=== PATIENT | male | born 1970 | race Two or more races ===

== ENCOUNTER 2018-04-08 07:04 | Day surgery (SDC) | payer OTHER ==
[2018-04-08] MEDS ORDERED: LACTATED RINGERS 1,000 ML IV ONE (07:34)
[2018-04-08] MEDS ORDERED: fentaNYL 250 MCG/5 ML VIAL IVP ONE (08:38)
[2018-04-08] MEDS ORDERED: MIDAZOLAM 2 MG/2 ML VIAL IVP ONE (08:38)
[2018-04-08 09:41] VITALS: BP 97/77
== END 2018-04-08 07:05 | disposition home or self-care (01) ==
LOC: SDS 07:04
PROVIDERS: ATTEND Surgery
PROC: 0DBN8ZZ Excision of Sigmoid Colon, Via Natural or Artificial Opening Endoscopic (ICD-10-PCS; 2018-04-08)
PROC: 0DBP8ZZ Excision of Rectum, Via Natural or Artificial Opening Endoscopic (ICD-10-PCS; principal; 2018-04-08 08:15)
DX: Z12.11 Encounter for screening for malignant neoplasm of colon (principal); D12.5 Benign neoplasm of sigmoid colon; D12.8 Benign neoplasm of rectum; K64.8 Other hemorrhoids; Z87.891 Personal history of nicotine dependence; Z80.0 Family history of malignant neoplasm of digestive organs; G47.30 Sleep apnea, unspecified
CPT/HCPCS: 45385; J7120

== ENCOUNTER 2018-10-28 09:30 | Emergency (ER) | payer OTHER ==
[2018-10-28] MEDS ORDERED: LIDOCAINE PATCH 5% TOP STA (10:15)
[2018-10-28] MEDS ORDERED: CYCLOBENZAPRINE 10 MG TABLET PO STA (10:18)
--- NOTE | 2018-10-28 10:18 | ED Physician Documentation ---
History of Present Illness - Stated complaint Stated Complaint: R SHOULDER PX - Chief complaint Chief Complaint: Ext Problem - Additonal information Additional information: hx from pt 48 male [place] aishwarya stevenson has had severe R shoulder pain since August pain with ABD uction has done a lot of heavy carrying lifting etc no specific recalled moment of injury seen by PMD at [facility] and xray was neg has been txed with mobic s relief has been referred top PT but n o opening yet pain is severe and he wants a MRI Review of Systems Musculoskeletal: reports: Joint pain PD PAST MEDICAL HISTORY - Past Medical History Cardiovascular: Hypertension, High cholesterol Respiratory: Sleep apnea, CPAP use, Other Endocrine/Autoimmune: None GI: GERD : Incontinence HEENT: Other Psych: Depression Musculoskeletal: Chronic back pain Derm: Eczema - Past Surgical History Past Surgical History: No - Present Medications Home Medications: Ambulatory Orders Medication Instructions Recorded Confirmed Cyclobenzaprine [Flexeril] 10 mg PO ONCE PRN 09/11/14 09/11/14 Lisinopril 20 mg PO DAILY 09/11/14 09/11/14 Meloxicam [Mobic] 0 mg PO DAILY 09/11/14 09/11/14 Sildenafil Citrate [Viagra] 0 mg PO ONCE 09/11/14 09/11/14 Simvastatin 20 mg PO DAILY 09/11/14 09/11/14 Tamsulosin [Flomax] 0.4 mg PO DAILY 09/11/14 09/11/14 Trazodone HCl 0 mg PO QPM PRN 09/11/14 09/11/14 Cyclobenzaprine [Flexeril] 10 mg PO TID PRN #20 tablet 10/28/18 Lidocaine Patch 5% [Lidoderm Patch] 1 patch TOP DAILY PRN #10 patch 10/28/18 - Allergies Allergies/Adverse Reactions: Allergies Allergy/AdvReac Type Severity Reaction Status Date / Time latex Allergy Intermediate Itching Verified 10/28/18 09:48 acetaminophen Allergy Itching Verified 10/28/18 09:48 [From Tylenol-Codeine #3] codeine Allergy Itching Verified 10/28/18 09:48 [From Tylenol-Codeine #3] hydromorphone HCl * Allergy Itching Verified 10/28/18 09:48 [From Dilaudid] oxycodone [Oxycodone] Allergy Unknown Verified 10/28/18 09:48 - Social History Does the pt smoke?: No Smoking Status: Never smoker Does the pt drink ETOH?: Yes Does the pt have substance abuse?: No - Immunizations Immunizations are current?: Yes PD ED PE NORMAL - Vitals Vital signs reviewed: Yes - General General: Alert and oriented X 3 - Cardiac Cardiac: RRR - Respiratory Respiratory: No respiratory distress, Clear bilaterally - Extremities Extremities: Other (R shoulder - 4 salonpas patches, TTP ovaer laterla shoulder , pain with any ROM but jennifer ABD past 90, not red or hit, MSV intact) Results - Vitals Vitals: Vital Signs - 24 hr 10/28/18 09:39 Temperature 35.8 C L Heart Rate 82 Respiratory 18 Rate Blood Pressure 135/95 H O2 Saturation 99 Oxygen O2 Source Room air PD MEDICAL DECISION MAKING - ED course ED course: most c/w roattor cuff injury likely would ebenefit from MRI but not needing to be done through the ER will add flexeril and liso patches refer to [facility] PMD order MRI and get pre-auth Departure - Departure Disposition: 01 Home, Self Care Clinical Impression: Rotator cuff arthropathy Qualifiers: Laterality: right Qualified Code(s): M12.811 - Other specific arthropathies, not elsewhere classified, right shoulder Condition: Good Instructions: ED Tendinitis Rotator Cuff Follow-Up: [facility] [Provider Group] Prescriptions: Cyclobenzaprine [Flexeril] 10 mg PO TID PRN #20 tablet PRN Reason: Spasms Lidocaine Patch 5% [Lidoderm Patch] 1 patch TOP DAILY PRN #10 patch PRN Reason: pain Comments: Continue the mobic and tylenol Add the muscle relaxant - may cause drowsiness And lidocaine patches for up to 12 hr a day Wear the sling as needed but be sure to do some range of motion every day to prevent shoulder "freezing" I do think a MRI would be a good idea - but needs to be ordered by your PMD or orthopedics and needs insurnace approval I have referred you to orthopedics
[2018-10-28] MEDS ORDERED: KETOROLAC 60 MG/2 ML VIAL IM STA (10:36)
[2018-10-28 11:09] VITALS: BP 130/88
== END 2018-10-28 11:06 | disposition home or self-care (01) ==
LOC: ED 09:30
DX: M12.811 Other specific arthropathies, not elsewhere classified, right shoulder (principal); I10 Essential (primary) hypertension; E78.00 Pure hypercholesterolemia, unspecified
CPT/HCPCS: 96372; 99283; A9270

== ENCOUNTER 2018-12-04 09:28 | Outpatient (CLI) | payer OTHER ==
[~2018-12-04 09:28] MED LIST: BUFFERED LIDOCAINE 10 ML SYRINGE ONE; GADOPENTETATE DIMEGLUMINE 5 ML VIAL IVP ONE; IOTHALAMATE MEGLUMINE 50 ML VIAL ONE
[2018-12-04] MEDS ORDERED: GADOPENTETATE DIMEGLUMINE 5 ML VIAL IVP ONE ×2 (10:25→15:01)
[2018-12-04] MEDS ORDERED: IOTHALAMATE MEGLUMINE 50 ML VIAL ONE (10:25)
[2018-12-04] MEDS ORDERED: BUFFERED LIDOCAINE 10 ML SYRINGE ONE (10:26)
--- NOTE | 2018-12-04 14:20 | XRAY Report ---
Reason: UNSPECIFIED ROTATOR CUFF TEAR OR RUPTURE SHOULDER Procedure Date: 12/04/2018 Accession Number: [id number] / [id number] Procedure: FL - Arthrogram Needle Placement CPT Code: FULL RESULT: EXAM: RIGHT SHOULDER ARTHROGRAPHIC INJECTION WITH FLUOROSCOPIC GUIDANCE EXAM DATE: 12/04/2018 11:03 AM. CLINICAL HISTORY: Persistent right shoulder pain COMPARISON: None. TECHNIQUE: The risks, benefits, and alternatives of the procedure were discussed with the patient. All questions were answered. Written and verbal consent were obtained. The right glenohumeral joint was marked under fluoroscopy and prepped and draped in a sterile manner. Local anesthesia was performed with 1% lidocaine. A 22-gauge needle was then inserted into the glenohumeral joint. 10 mL of a solution containing 25% 1% lidocaine, 25% iodinated contrast, and a 1:200 dilution of gadolinium contrast in sterile saline was then injected. The needle was removed without immediate complication. Other: None. Fluoroscopy Time: 58 seconds. Number of Images: 1. FINDINGS: Bones and joints: No fracture or subluxation. Injection: Fluoroscopic images demonstrate needle placement and contrast in the right glenohumeral joint. No contrast extravasation outside of the glenohumeral joint. IMPRESSION: Successful fluoroscopically guided arthrographic injection of the right shoulder. [facility]
[2018-12-04] MEDS ORDERED: IOTHALAMATE MEGLUMINE 50 ML VIAL IVP ONE (15:01)
[2018-12-04] MEDS ORDERED: BUFFERED LIDOCAINE 10 ML SYRINGE IU ONE (15:01)
--- NOTE | 2018-12-04 17:00 | MRI Report ---
Reason: UNSPECIFIED ROTATOR CUFF TEAR OR RUPTURE SHOULDER Procedure Date: 12/04/2018 Accession Number: [id number] / [id number] Procedure: MRI - Arthrogram Shoulder RT CPT Code: FULL RESULT: EXAM: RIGHT SHOULDER MRI ARTHROGRAM WITH CONTRAST EXAM DATE: 12/04/2018 11:39 AM. CLINICAL HISTORY: Right shoulder pain. COMPARISON: None. TECHNIQUE: Multiplanar, multisequence T1-weighted and fluid-sensitive sequences of the shoulder after an arthrographic injection of dilute gadolinium, dictated under a separate exam. Other: None. FINDINGS: Acromioclavicular Region: The acromion is type II. The acromioclavicular joint is unremarkable. The coracoacromial and coracoclavicular ligaments are intact. There is no contrast or fluid in the subacromial/subdeltoid bursa. Glenohumeral Region: No subluxation. No loose bodies. The articular cartilage is unremarkable. The glenohumeral ligaments and joint capsule are unremarkable. Bone Marrow: No fracture, marrow edema or bone lesions. Labrum: The labrum is unremarkable. Biceps Tendon: The long head of the biceps tendon and biceps reinaldo are intact. Musculature/Rotator Cuff: There is a focal, approximately 1.2 x 1.1 cm low to moderate grade partial-thickness articular surface tear at the anterior distal aspect of the supraspinatus tendon. The infraspinatus, teres minor, and subscapularis tendons are unremarkable. No edema or fatty atrophy. Other: The subcutaneous tissues are unremarkable. IMPRESSION: 1. Focal low to moderate grade partial-thickness articular surface tear of the anterior distal aspect of the supraspinatus tendon. [facility] MUSCULOSKELETAL RADIOLOGY SECTION
== END 2018-12-04 09:29 | disposition home or self-care (01) ==
LOC: DI 09:28
PROVIDERS: ATTEND Family Medicine
DX: M75.101 Unspecified rotator cuff tear or rupture of right shoulder, not specified as traumatic (principal)
CPT/HCPCS: 23350; 73222; 77002; Q9961

== ENCOUNTER 2019-05-20 08:59 | Outpatient (CLI) | payer OTHER | END 2019-05-20 09:00 | disposition critical access hospital (66) | LOC: EMS 08:59 | PROVIDERS: ATTEND Surgery | DX: R42 Dizziness and giddiness (principal); R07.9 Chest pain, unspecified | CPT/HCPCS: A0425; A0427 ==

== ENCOUNTER 2019-05-20 09:22 | Inpatient (IN) | payer OTHER ==
--- NOTE | 2019-05-20 09:39 | ED Physician Documentation ---
PD HPI CHEST PAIN - Stated complaint Stated Complaint: DIZZINESS/ CHEST BURNING - History obtained from History obtained from: Patient - History of Present Illness Timing - onset: How many hours ago (10/22), Today Timing - onset during: Light activity Timing - duration: Hours (Onset at 8 AM today. He had been feeling some dyspnea on exertion and general fatigue over the last several weeks to a month or so. He was late for work and went jogging slightly uphill and felt short of breath but then felt better when rested. He then went into the meeting and soon after that had an onset of chest pressure associated with nausea sweaty and lightheaded. He went to his office and sat down but still continued with the symptoms. EMS was called and en route they gave 2 nitroglycerin and aspirin. This helped fairly well but not completely. He does have some element of sharp chest pain with coughing. He has had a slight cough and some sore throat for about a week. However that is distinct and separate from the chest pressure he had had this morning.) Timing - details: Abrupt onset PD PAST MEDICAL HISTORY - Past Medical History Cardiovascular: Hypertension, High cholesterol Respiratory: Sleep apnea, CPAP use, Other Endocrine/Autoimmune: None GI: GERD : Incontinence HEENT: Other Psych: Depression Musculoskeletal: Chronic back pain Derm: Eczema - Past Surgical History Past Surgical History: No - Present Medications Home Medications: Ambulatory Orders Medication Instructions Recorded Confirmed Cyclobenzaprine [Flexeril] 10 mg PO ONCE PRN 09/11/14 09/11/14 Lisinopril 20 mg PO DAILY 09/11/14 09/11/14 Meloxicam [Mobic] 0 mg PO DAILY 09/11/14 09/11/14 Sildenafil Citrate [Viagra] 0 mg PO ONCE 09/11/14 09/11/14 Simvastatin 20 mg PO DAILY 09/11/14 09/11/14 Tamsulosin [Flomax] 0.4 mg PO DAILY 09/11/14 09/11/14 Trazodone HCl 0 mg PO QPM PRN 09/11/14 09/11/14 Cyclobenzaprine [Flexeril] 10 mg PO TID PRN #20 tablet 10/28/18 Lidocaine Patch 5% [Lidoderm Patch] 1 patch TOP DAILY PRN #10 patch 10/28/18 - Allergies Allergies/Adverse Reactions: Allergies Allergy/AdvReac Type Severity Reaction Status Date / Time latex Allergy Intermediate Itching Verified 05/20/19 09:41 acetaminophen Allergy Itching Verified 05/20/19 09:41 [From Tylenol-Codeine #3] codeine Allergy Itching Verified 05/20/19 09:41 [From Tylenol-Codeine #3] hydromorphone HCl * Allergy Itching Verified 05/20/19 09:41 [From Dilaudid] oxycodone [Oxycodone] Allergy Unknown Verified 05/20/19 09:41 - Social History Does the pt smoke?: No Smoking Status: Never smoker Does the pt drink ETOH?: Yes Does the pt have substance abuse?: No - Immunizations Immunizations are current?: Yes Results - Vitals Vitals: Vital Signs - 24 hr 05/20/19 05/20/19 05/20/19 09:24 10:07 10:34 Temperature 36.4 C L Heart Rate 68 62 67 Respiratory 16 20 14 Rate Blood Pressure 106/72 116/86 H 111/89 H O2 Saturation 96 98 99 Oxygen O2 Source Room air - Labs Labs: Laboratory Tests 05/20/19 05/20/19 05/20/19 10:20 10:20 10:20 WBC 10.7 RBC 4.19 L Hgb 14.1 Hct 41.6 L MCV 99.3 H MCH 33.7 H MCHC 33.9 RDW 11.9 L Plt Count 237 MPV 9.3 Neut # (Auto) 8.2 H Lymph # (Auto) 1.5 Piute # (Auto) 0.7 Eos # (Auto) 0.1 Baso # (Auto) 0.1 Absolute Nucleated RBC 0.00 Nucleated RBC % 0.0 Sodium 135 Potassium 3.7 Chloride 103 Carbon Dioxide 24 Anion Gap 8.0 BUN 14 Creatinine 0.9 Estimated GFR (MDRD) 89 Glucose 105 H Calcium 8.7 Magnesium 2.1 Total Bilirubin 0.6 AST 21 ALT 24 Alkaline Phosphatase 60 Troponin I < 0.04 Troponin I High Sens B-Natriuretic Peptide Total Protein 6.7 Albumin 3.6 Globulin 3.1 Albumin/Globulin Ratio 1.2 Lipase 30 TSH 05/20/19 05/20/19 05/20/19 10:20 10:20 10:20 WBC RBC Hgb Hct MCV MCH MCHC RDW Plt Count MPV Neut # (Auto) Lymph # (Auto) Piute # (Auto) Eos # (Auto) Baso # (Auto) Absolute Nucleated RBC Nucleated RBC % Sodium Potassium Chloride Carbon Dioxide Anion Gap BUN Creatinine Estimated GFR (MDRD) Glucose Calcium Magnesium Total Bilirubin AST ALT Alkaline Phosphatase Troponin I Troponin I High Sens 8.6 B-Natriuretic Peptide 12 Total Protein Albumin Globulin Albumin/Globulin Ratio Lipase TSH 1.43 Departure - Departure Disposition: ED Place in Observation Clinical Impression: Chest pain, rule out acute myocardial infarction Condition: Stable Record reviewed to determine appropriate education?: Yes
[2019-05-20] MEDS ORDERED: ONDANSETRON 4 MG/2 ML VIAL IVP STA (10:06)
[2019-05-20] MEDS ORDERED: MORPHINE 2 MG/ML CARPUJECT IVP STA (10:06)
[2019-05-20] MEDS ORDERED: SODIUM CHLORIDE 0.9% 1,000 ML IV ONE (10:07)
--- NOTE | 2019-05-20 10:31 | XRAY Report ---
Reason: chest pain Procedure Date: 05/20/2019 Accession Number: [id number] / [id number] Procedure: XR - Chest 1 View X-Ray CPT Code: 11396 FULL RESULT: EXAM: CHEST RADIOGRAPHY EXAM DATE: 05/20/2019 10:19 AM. CLINICAL HISTORY: Chest pain. COMPARISON: XR CHEST PA AND LAT 11/26/2012 5:13 AM. TECHNIQUE: 1 view. FINDINGS: Lungs/Pleura: No focal opacities evident. No pleural effusion. No pneumothorax. Mediastinum: Heart size is normal. Aorta is mildly tortuous. Other: None. IMPRESSION: 1. No acute disease in the chest. [facility]
[2019-05-20 10:35] LABS: BASOPHILS # (AUTO) 0.1 10^3/uL (0.0-0.1); BASOPHILS % (AUTO) 0.6 %; EOSINOPHILS # (AUTO) 0.1 10^3/uL (0.0-0.7); EOSINOPHILS % (AUTO) 1.3 %; HGB - HEMOGLOBIN 14.1 g/dL (14.0-18.0); LYMPHOCYTES # (AUTO) 1.5 10^3/uL (1.5-3.5); MEAN CORPUSCULAR HEMOGLOBIN 33.7 pg (27.0-31.0); MEAN CORPUSCULAR HGB CONC 33.9 g/dL (32.0-36.0); MEAN CORPUSCULAR VOLUME 99.3 fL (80.0-94.0); MEAN PLATELET VOLUME 9.3 fL (7.4-11.4); MONOCYTES # (AUTO) 0.7 10^3/uL (0.0-1.0); MONOCYTES % (AUTO) 6.7 %; NEUTROPHILS # (AUTO) 8.2 10^3/uL (1.5-6.6); PLT - PLATELET COUNT 237 10^3/uL (130-450); RED BLOOD COUNT 4.19 10^6/uL (4.70-6.10); RED CELL DISTRIBUTION WIDTH 11.9 % (12.0-15.0); WHITE BLOOD COUNT 10.7 x10^3/uL (4.8-10.8)
[2019-05-20 10:45] LABS: ALBUMIN 3.6 g/dL (3.2-5.5); ALBUMIN/GLOBULIN RATIO 1.2 (1.0-2.2); BILIRUBIN,TOTAL 0.6 mg/dL (0.2-1.0); CALCIUM 8.7 mg/dL (8.5-10.3); CREATININE 0.9 mg/dL (0.6-1.2); MAGNESIUM 2.1 mg/dL (1.7-2.8); TOTAL PROTEIN 6.7 g/dL (6.7-8.2)
[2019-05-20] MEDS ORDERED: ONDANSETRON 4 MG/2 ML VIAL IVP PRN (12:03)
[2019-05-20] MEDS ORDERED: MORPHINE 2 MG/ML CARPUJECT IVP PRN (12:03)
[2019-05-20] MEDS ORDERED: SODIUM CHLORIDE FLUSH 0.9% 10 ML SYRINGE IVP PRN (12:03)
[2019-05-20] MEDS ORDERED: NITROGLYCERIN SL 0.4 MG TABLET SL PRN (12:13)
--- NOTE | 2019-05-20 12:17 | HISTORY & PHYSICAL EXAMINATION ---
Chief Complaint - Chief Complaint Chief Complaint: chest pain History of Present Illness - History of Present Illness HPI Comment/Other: Mr. Borges is a 48-yrs-old male with a PMH significant for HTN, HLD, sleep Apnea, GERD, incontinence, Depression, chronic back pain, who present ER complain of chest pain. pt report his chest pain started after he passed the uphill to go to morning meeting. He report chest pain located anterior left chest. Pain is more like pressure on chest pain associated with shortness of breath, lightheaded, cold sweating, pale and also with feeling of passed out. He also report feeling of nausea but no vomiting. Because of these symptoms, he called EMS. He felt better after EMS gave him Aspirin and nitro SL. Pt also r eport he felt general weakness, cough with yellowish sputum for over one week. pt denies fever, chill, shortness of breath now. Pt also denies headache, abdominal pain, dysuria, hematouria, vision change. Initial troponin and EKG were unremarkable indicated acute ACS. Lab test in ER was unremarkable. CXR does not reveals acute finding. pt is a febrile, and hemodynamic stable now. pt is admitted in observation unit for chest pain R/O History - Past Medical History Cardiovascular: reports: Hypertension, High cholesterol Respiratory: reports: Sleep apnea, CPAP use, Other Endocrine/Autoimmune: reports: None GI: reports: GERD : reports: Incontinence HEENT: reports: Other Psych: reports: Depression Musculoskeletal: reports: Chronic back pain Derm: reports: Eczema MRSA Hx?: No - Family & Social History Family History Comment/Other: pt report he is living [place] with his and three children. After he has been working 20 yrs in , now he retired. Social History Notes: pt report he smoked cigarette on his teenage, then he stoped. About ten years ago, he started smoking again now he stop tobacco smoking. He denies alcohol and drug issue. Meds/Allgy - Home Medications Home Medications: Ambulatory Orders Medication Instructions Recorded Confirmed Cyclobenzaprine [Flexeril] 10 mg PO ONCE PRN 09/11/14 09/11/14 Lisinopril 20 mg PO DAILY 09/11/14 09/11/14 Meloxicam [Mobic] 0 mg PO DAILY 09/11/14 09/11/14 Sildenafil Citrate [Viagra] 0 mg PO ONCE 09/11/14 09/11/14 Simvastatin 20 mg PO DAILY 09/11/14 09/11/14 Tamsulosin [Flomax] 0.4 mg PO DAILY 09/11/14 09/11/14 Trazodone HCl 0 mg PO QPM PRN 09/11/14 09/11/14 Cyclobenzaprine [Flexeril] 10 mg PO TID PRN #20 tablet 10/28/18 Lidocaine Patch 5% [Lidoderm Patch] 1 patch TOP DAILY PRN #10 patch 10/28/18 - Allergies Allergies/Adverse Reactions: Allergies Allergy/AdvReac Type Severity Reaction Status Date / Time latex Allergy Intermediate Itching Verified 05/20/19 09:41 acetaminophen Allergy Itching Verified 05/20/19 09:41 [From Tylenol-Codeine #3] codeine Allergy Itching Verified 05/20/19 09:41 [From Tylenol-Codeine #3] hydromorphone HCl * Allergy Itching Verified 05/20/19 09:41 [From Dilaudid] oxycodone [Oxycodone] Allergy Unknown Verified 05/20/19 09:41 Review of Systems - Constitutional Constitutional: denies: Fatigue, Fever, Chills, Malaise, Weakness, Poor appetite, Diaphoresis, Night sweats - Eyes Eyes: denies: Pain, Irritation, Amaurosis, Blurred vision, Spots in vision, Field loss, Vision loss, Dipolpia - Ears, Nose & Throat Ears, Nose & Throat: denies: Ear pain, Hearing loss, Hearing aids, Tinnitus, Vertigo, Nasal pain, Nasal discharge, Nosebleeds, Nasal obstruction, Nasal congestion, Postnasal drainage, Dentures, Sore throat, Hoarseness, Mouth lesions, Bleeding gums - Cardiovascular Cariovascular: reports: Chest pain, Lightheadedness, Exertional dyspnea. denies: Irregular heart rate, Palpitations, Edema, Syncope, Decr. exercise tolerance, Orthopnea - Respiratory Respiratory: reports: Cough, Sputum production. denies: Wheezing, Snoring, He moptysis, Orthopnea, SOB at rest, SOB with exertion, Apnea, Stridor, Pleuritic pain - Gastrointestinal Gastrointestinal: denies: Abdominal pain, Abdominal distention, Constipation, Diarrhea, Change in bowel habits, Rectal bleeding, Black stools, Bloody stools, Nausea, Vomiting, Bile emesis, David blood emesis, Coffee grounds emesis, Reflux/heartburn - Genitourinary Genitourinary: denies: Dysuria, Frequency, Urgency, Hematuria, Incontinence, Flank pain, Nocturia, Urethral discharge - Musculoskeletal Musculoskeletal: denies: Muscle pain, Back pain, Muscle aches, Stiffness, Limit ed range of motion, Muscle weakness, Gout, Joint pain - Integumentary Integumentary: denies: Rash, Pruritis, Lesions, Dryness, Lumps, Acne, Pigment changes, Nail changes - Neurological Neurological: denies: General weakness, Focal weakness, Headache, Dizziness, Numbness, Memory problems, Pre-existing deficit, Abnormal gait, Seizures, Incoordination, Slurred speech - Psychiatric Psychiatric: denies: Depression, Anxiety, Suicidal, Delusions, Hallucinations, Homicidal - Endocrine Endocrine: denies: Polyuria, Polydypsia, Polyphagia, Intolerance to cold - Hematologic/Lymphatic Hematologic/Lymphatic: denies: Anemia, Bruising, Petechiae, Blood clots, Lymphadenopathy, Bleeding tendencies Prior Level of Functionality: pt is independent Exam - Vital Signs Reviewed Vital Signs: Yes Vital Signs: Vital Signs x48h Temp Pulse Resp BP Pulse Ox 05/20/19 11:55 65 17 108/81 H 98 05/20/19 10:34 67 14 111/89 H 99 05/20/19 10:07 62 20 116/86 H 98 05/20/19 09:24 36.4 C L 68 16 106/72 96 - Physical Exam General Appearance: positive: No acute distress, Alert. negative: Lethargic Eyes Bilateral: positive: Normal inspection, PERRL. negative: No lid inflammation, Conjunctivae nml ENT: positive: ENT inspection nml, Pharynx nml, No signs of dehydration. negative: Purulent nasal drainage, Pharyngeal erythema, Oral lesions Neck: positive: Nml inspection, Thyroid nml, No JVD, Trachea midline. negative: Thyromegaly, Lymphadenopathy (R), Lymphadenopathy (L), Stiff neck, Swelling/bruising, Tracheal deviation Respiratory: positive: Chest non-tender, No respiratory distress, Breath sounds nml. negative: Wheezes, Rales, Rhonchi Cardiovascular: positive: Regular rate & rhythm, No murmur, No gallop. negative: Irregularly irregular, Extrasystoles, Tachycardia, Bradycardia, JVD present, Systolic murmur, Diastolic murmur Peripheral Pulses: positive: 2+ Abdomen: positive: Non-tender, No organomegaly, Nml bowel sounds, No distention. negative: Tenderness, Guarding, Rebound Back: positive: Nml inspection. negative: CVA tenderness (R), CVA tenderness (L) Skin: positive: Color nml, No rash, Warm, Dry. negative: Cyanosis, Diaphoresis, Pallor Extremities: positive: Non-tender, Full ROM, Nml appearance. negative: Calf tenderness, Joint swelling, Mayra's sign/cords Neurologic/Psychiatric: positive: Oriented x3, Motor nml, Sensation nml, Mood/affect nml. negative: Weakness, Sensory loss, Facial droop, Slurred/abnml speech, Depressed mood/affect Sepsis Event Note (H) - Evaluation Current Stage of Sepsis: Ruled out Conclusion/Plan - Problem List (1) Chest pain, rule out acute myocardial infarction Conclusion/Plan: pt present typical chest pain symptoms: anterior chest pain and pressure, associated with cold sweating, SOB, lightheaded, nausea, and Nitro and Aspirin released his symptoms. But pt's initial Troponin and EKG were unremarkable as far. Serial Troponin, EKG PRN pt already had Aspirin today and Nitro. order Aspirin for tomorrow Morphine and Nitro PRN for chest pain reconcile pt's home Statin, check Lipid panel order Stress test on tomorrow. order Tele and vital monitor pt (2) HTN (hypertension) Conclusion/Plan: pt's BP is at lower size now, hold pt's BP meds now. vital monitor (3) HLD (hyperlipidemia) Conclusion/Plan: reconcile pt's home lipitor and check Lipid panel (4) Sleep apnea Conclusion/Plan: stable, pt may use his home CPAP (5) GERD (gastroesophageal reflux disease) Conclusion/Plan: stable, order Protonic PO (6) Chronic back pain Conclusion/Plan: stable, pain control (7) Full code status Conclusion/Plan: pt request full code - Lab Results Fish Bones: 05/20/19 10:20 05/20/19 10:20 Core Measures - Anticipated LOS I expect patient to be DC'd or transferred within 96 hours.: Yes - DVT/VTE - Prophylaxis VTE/DVT Device ordered at admit?: Yes VTE/DVT Prophylaxis med ordered at admit?: Yes
[2019-05-20] MEDS: PANTOPRAZOLE 40 MG TABLET PO SCH (14:37)
[2019-05-20 16:21] LABS: TROPONIN I < 0.04 ng/mL (<0.49)
[2019-05-20] MEDS: SODIUM CHLORIDE FLUSH 0.9% 10 ML SYRINGE IVP SCH (16:58)
[2019-05-20] MEDS ORDERED: ZOLPIDEM 5 MG TABLET PO PRN (21:00)
[2019-05-20] MEDS ORDERED: ATORVASTATIN 10 MG TABLET PO SCH (21:00)
[2019-05-20 22:17] LABS: TROPONIN I < 0.04 ng/mL (<0.49)
[2019-05-21] MEDS: SODIUM CHLORIDE FLUSH 0.9% 10 ML SYRINGE IVP SCH ×3 (00:01→16:51)
[2019-05-21] MEDS ORDERED: BENZOCAINE/MENTHOL LOZENGE MM PRN (00:17)
[2019-05-21] MEDS: guaiFENesin 100 MG/5 ML UDC PO PRN ×2 (05:06→16:50)
[2019-05-21 06:00] LABS: CALCIUM 8.8 mg/dL (8.5-10.3)
[2019-05-21 06:02] LABS: BASOPHILS # (AUTO) 0.1 10^3/uL (0.0-0.1); BASOPHILS % (AUTO) 0.8 %; EOSINOPHILS # (AUTO) 0.2 10^3/uL (0.0-0.7); EOSINOPHILS % (AUTO) 2.6 %; HGB - HEMOGLOBIN 14.4 g/dL (14.0-18.0); LYMPHOCYTES # (AUTO) 2.2 10^3/uL (1.5-3.5); LYMPHOCYTES % (AUTO) 29.7 %; MEAN CORPUSCULAR HEMOGLOBIN 33.8 pg (27.0-31.0); MEAN CORPUSCULAR HGB CONC 33.7 g/dL (32.0-36.0); MEAN CORPUSCULAR VOLUME 100.2 fL (80.0-94.0); MEAN PLATELET VOLUME 9.3 fL (7.4-11.4); MONOCYTES # (AUTO) 0.5 10^3/uL (0.0-1.0); MONOCYTES % (AUTO) 7.2 %; NEUTROPHILS # (AUTO) 4.4 10^3/uL (1.5-6.6); NEUTROPHILS % (AUTO) 59.3 %; PLT - PLATELET COUNT 251 10^3/uL (130-450); RED BLOOD COUNT 4.26 10^6/uL (4.70-6.10); WHITE BLOOD COUNT 7.5 x10^3/uL (4.8-10.8)
[2019-05-21 06:20] LABS: CHOL/HDL RATIO 4.4 (<5.0); CHOLESTEROL 210 mg/dL; HDL CHOLESTEROL 48 mg/dL; LDL CHOLESTEROL,CALCULATED 134 mg/dL; LDL/HDL RATIO 2.8 (<3.6); VLDL CHOLESTEROL 28 mg/dL
[2019-05-21] MEDS: PANTOPRAZOLE 40 MG TABLET PO SCH (06:21)
[2019-05-21] MEDS ORDERED: POLYETHYLENE GLYCOL 3350 17 GM PACKET PO SCH (09:00)
[2019-05-21] MEDS ORDERED: TAMSULOSIN 0.4 MG CAPSULE PO SCH (09:00)
[2019-05-21] MEDS ORDERED: ASPIRIN CHEW 81 MG TABLET PO SCH (09:00)
[2019-05-21] MEDS ORDERED: ENOXAPARIN 40 MG/0.4 ML SYRINGE SUBQ SCH (09:00)
--- NOTE | 2019-05-21 12:06 | CARDIAC PROCEDURE NOTE ---
DATE OF SERVICE: 05/21/2019 Physician: Janny Monge MD PCP: Tierra Benton INDICATION: Chest pain. CARDIAC RISK FACTORS: Hypertension, hyperlipidemia, male gender, unknown family history. PROCEDURE: After signing informed consent, patient underwent a Shlomo-protocol treadmill stress test with nuclear myocardial perfusion imaging. RESTING HEART RATE: 73. PEAK HEART RATE: 156 (91% predicted maximum heart rate for age). RESTING BLOOD PRESSURE: 98/60 (he got his morning Lisinopril). PEAK BLOOD PRESSURE: 128/62. Patient exercised for 6 minutes and 44 seconds on a Shlomo-protocol treadmill stress test. Normal heart rate and blood pressure response to exercise. Patient reached a peak heart rate of 156 (91% PMHR) and 8.2 METS. Oxygen saturation at peak was 98% on room air. Patient developed his typical chest pressure (which was worse with a deep inspiration) in stage 2. He rated this at 5-6/10 at maximum. He had mild shortness of breath. He had no dizziness or other symptoms. The chest pain resolved spontaneously after 6 minutes of recovery. RESTING EKG: Normal sinus rhythm, flat T-wave in lead III only. EKG AT PEAK: New T-wave inversion in lead III, upsloping ST depressions in leads II, aVF, and V3 through V6 and new T-wave flattening in leads V5 and V6. SUMMARY 1. Essentially normal resting EKG. 2. His typical symptoms were reproduced with treadmill exercise. 3. Abnormal EKG with exertion, and those changes ARE suggestive of ischemia. 4. Nuclear images reported separately. TD: 05/21/2019 11:51 MTDD
--- NOTE | 2019-05-21 12:56 | Nuclear Medicine Report ---
Reason: chest pain Procedure Date: 05/21/2019 Accession Number: [id number] / [id number] Procedure: NM - Myocardial Perfusion Single CPT Code: FULL RESULT: EXAM: SINGLE-ISOTOPE EXERCISE STRESS TEST. SINGLE-ISOTOPE AND ONE-DAY REST/STRESS MYOCARDIAL PERFUSION SCANS WITH TOMOGRAPHIC IMAGING, QUANTITATIVE ANALYSIS, WALL MOTION ANALYSIS AND CALCULATION OF EJECTION FRACTION. EXAM DATE: 05/21/2019 12:31 PM. CLINICAL HISTORY: Chest pain. COMPARISON: None. TECHNIQUE: A rest myocardial perfusion scan was done with tomography after the intravenous administration of 10.3 mCi Tc-99m sestamibi. After an appropriate delay, a treadmill exercise stress was performed according to department protocol. The patient exercised for 6 minutes and 44 seconds. The maximum heart rate was 156 bpm, which was 92% of the maximum predicted heart rate of 170 bpm. At approximately peak heart rate, 39.7 mCi of Tc-99m sestamibi was injected for stress myocardial perfusion scan. Motion correction was applied when appropriate. Gated tomographic images were obtained for wall motion analysis and computation of left ventricular ejection fraction. FINDINGS: On visual analysis, there is a mildly reversible defect in the distal anterior wall and anterior apex. Computer analysis. Summed stress score 4 Summed rest score 3 Summed difference score 1 Wall motion analysis demonstrates no focal wall motion abnormality. The left ventricular end-diastolic volume is 47 cc. The left ventricular end-systolic volume is 5 cc. The left ventricular ejection fraction is calculated to be 88%. IMPRESSION: 1. On visual analysis, mild reversible defect in the distal anterior wall and anterior apex. 2. Normal left ventricular ejection fraction of >65%. 3. Normal segmental and global wall motion. 4. Normal left ventricular cavity size, no change with stress. 5. Based on computer analysis, mildly abnormal study with no ischemia. Please correlate findings with stress ECG tracings and procedure notes. [facility]
--- NOTE | 2019-05-21 13:32 | Discharge Plan ---
Discharge Plan Problem Reviewed?: Yes Disposition: Home, Self Care Condition: Stable Diet: Regular Activity Restrictions: Activity as Tolerated Shower Restrictions: No Driving Restrictions: No Weight Bearing: Full Weight Health Concerns: Chest pain No Smoking: If you smoke, Please STOP! Call for help. Follow-up with: Tierra Benton MD [Primary Care Provider] -
[2019-05-21] MEDS ORDERED: amLODIPine 5 MG TABLET PO SCH (14:36)
--- NOTE | 2019-05-21 16:10 | Discharge Plan ---
Discharge Plan Problem Reviewed?: Yes Disposition: 02 Transfer Acute Care Hosp Health Concerns: Chest pain No Smoking: If you smoke, Please STOP! Call for help. Follow-up with: Tierra Benton MD [Primary Care Provider] -
[2019-05-21 19:23] VITALS: BP 106/68
[2019-05-21] MEDS ORDERED: ATORVASTATIN 40 MG TABLET PO SCH (21:00)
--- NOTE | 2019-05-27 13:20 | DISCHARGE SUMMARY ---
"Discharge Summary Admit Date: 05/20/19 Discharge Date: 05/21/19 Discharging Provider: Dr Janny Monge Primary Care Provider: Tierra Benton Code Status: Attempt Resuscitation Condition at Discharge: Stable Discharge Disposition: 02 Transfer Acute Care Hosp Discharge Facility Name: [facility] - DIAGNOSES Admission Diagnoses: 1) Chest pain 2) Dizziness 3) Cough and dyspnea Discharge Diagnoses with Status of Each Condition: 1) Unstable angina 2) Dizziness 3) Hypotension 4) Elevated cholesterol 5) Hx HTN 6) Hx BRANDON See below - HPI History of Present Illness: As per admission the OR report and H&P of Rayshawn Mckay NP: Mr. Borges is a 48-yr-old male with a PMH significant for HTN, HLD, sleep Apnea, GERD, incontinence, Depression, chronic back pain, who presented to ER by ambulance with complaint of new onset of chest pain. His chest pain started after he ran uphill (because he was late for a morning meeting at work). It was associated with shortness of breath, lightheadedness, cold sweating, nausea and feeling of nearly passing out. He layed down in his office, supine on the floor. Because of these symptoms, he called EMS and felt better after EMS gave him Aspirin and nitro SL. Pt also reported he has had a cough for over one week, but denies fever, chills. He had been feeling some dyspnea on exertion and general fatigue over the last several weeks to a month or so. Initial troponin and EKG were stable, and he was placed in Observation status on telemetry for further evaluation. - CONSULTS | PROCEDURES Procedures: Treadmill stress testing with Nuclear Myocardial Perfusion Imaging. - HOSPITAL COURSE Hospital Course: 1) Unstable angina He had no chest pain at rest and his troponins were unremarkable, therefore he underwent stress testing the following day. He had an episode of his typical chest pressure, without associated dizziness or nausea, as he exercised for the stress test. The EKG portion showed minimal ST depressions and T new wave abnormality interiorly and laterally, and the Nuclear imaging was reported as showing reversible ischemia mitch-apically, suggesting obstructive coronary artery disease. He was put on statin, aspirin and kept on his B-irena. He was accepted in transfer for further cardiac evaluation such as angiography, by Cardiology at [facility] in [place] and he was transferred to the Hospitalist violet there in stable condition by ambulance. 2) Dizziness There were no further episodes of lightheadedness at rest, but his medications needed adjustment, see #3. 3) Hypotension He was hypotensive during this hospital stay, as low as 92/67 and 98/48, therefore Lisinopril was put on hold. He was kept on his Metoprolol Succ 25 mg daily. 4) Elevated cholesterol His fasting serum lipid panel was done and showed poor control, despite being on Simvistatin 20 mg at home. His total cholesterol: 210, LDL: 134, HDL: 48, Triglycerides: 141. When I discussed this result with the patient, the reported, and the patient admitted, that he almost never took his Simvastatin med. The importance of compliance was discussed. 5) Hx HTN He had been on Lisinopril, and Metoprolol at home. The Lisinopril was stopped, due to low BP and being suspected as the cause of the dry cough. 6) Hx BRANDON His home CPA device was ordered to be used while he was here. - ALLERGIES Allergies/Adverse Reactions: Allergies Allergy/AdvReac Type Severity Reaction Status Date / Time latex Allergy Intermediate Itching Verified 05/26/19 09:44 acetaminophen Allergy Itching Verified 05/26/19 09:44 [From Tylenol-Codeine #3] codeine Allergy Itching Verified 05/26/19 09:44 [From Tylenol-Codeine #3] hydromorphone HCl * Allergy Itching Verified 05/26/19 09:44 [From Dilaudid] oxycodone [Oxycodone] Allergy Unknown Verified 05/26/19 09:44 - MEDICATIONS Home Medications: Ambulatory Orders Medication Instructions Recorded Confirmed Meloxicam [Mobic] 15 mg PO DAILY PRN 09/11/14 05/26/19 Sildenafil Citrate [Viagra] 100 mg PO DAILY PRN 09/11/14 05/26/19 Tamsulosin [Flomax] 0.4 mg PO QPM 09/11/14 05/26/19 Trazodone HCl 50 mg PO QPM PRN 09/11/14 05/26/19 Acetaminophen 650 mg PO BID PRN 05/20/19 05/26/19 Cholecalciferol (Vitamin D3) 2,000 units PO DAILY 05/20/19 05/26/19 [Vitamin D3] Cyclobenzaprine [Flexeril] 10 mg PO Q8H PRN 05/20/19 05/26/19 Glucos Sul 2Kcl/MSM/Chond/C/Mn 1 tab PO DAILY 05/20/19 05/26/19 [Glucosamine Chondroitin Cap] Aspirin [Aspirin EC] 81 mg PO DAILY 05/26/19 05/26/19 Atorvastatin Calcium 80 mg PO QPM 05/26/19 05/26/19 Metoprolol Succinate 25 mg PO DAILY 05/26/19 05/26/19 Ticagrelor [Brilinta] 90 mg PO BID 05/26/19 05/26/19 - PHYSICAL EXAM AT DISCHARGE General Appearance: positive: No acute distress Eyes Bilateral: positive: Normal inspection ENT: positive: ENT inspection nml Neck: positive: No JVD Respiratory: positive: No respiratory distress, Breath sounds nml Cardiovascular: positive: Regular rate & rhythm, No murmur Abdomen: positive: Non-tender Extremities: positive: No pedal edema Neurologic/Psychiatric: positive: Oriented x3 - LABS Result Diagrams: 05/21/19 05:28 05/21/19 05:28 - DIAGNOSTIC IMAGING Diagnostic Imaging Results: Final report reviewed - SEPSIS Current Stage of Sepsis: Ruled out - FOLLOW UP Follow Up: This will be determined after his hospitalization at [facility]. - TIME SPENT Time Spent in Discharge (Minutes): 60"
== END 2019-05-21 19:30 | disposition short-term general hospital (02) | DRG 303 ==
LOC: EDUNIT# → ED 09:22 → MS2 12:03 → INTOOBSV 12:03 → UNDOADMOB 12:03 → OBSVTOIN 05-21 14:32 → INTOOBSV 05-21 14:32 → UNDODISIN 05-21 19:30
PROVIDERS: ADMIT Nurse Practitioner Gerontology; ATTEND Internal Medicine
DX: I25.110 Atherosclerotic heart disease of native coronary artery with unstable angina pectoris (principal); R42 Dizziness and giddiness; R05 Cough; I95.2 Hypotension due to drugs; T46.4X5A Adverse effect of angiotensin-converting-enzyme inhibitors, initial encounter; E78.5 Hyperlipidemia, unspecified; T46.6X6A Underdosing of antihyperlipidemic and antiarteriosclerotic drugs, initial encounter; Z91.128 Patient's intentional underdosing of medication regimen for other reason; Y92.009 Unspecified place in unspecified non-institutional (private) residence as the place of occurrence of the external cause; I10 Essential (primary) hypertension; G47.33 Obstructive sleep apnea (adult) (pediatric); F32.9 Major depressive disorder, single episode, unspecified; K21.9 Gastro-esophageal reflux disease without esophagitis; M54.9 Dorsalgia, unspecified; G89.29 Other chronic pain; Z79.899 Other long term (current) drug therapy; Z87.891 Personal history of nicotine dependence
CPT/HCPCS: 36415; 71045; 78453; 80048; 80053; 80061; 83690; 83735; 83880; 84443; 84484; 85025; 93005; 93017; 93306; 96361; 96372; 96374; 96375; 99285; A9270; A9500; G0378; J1650; 83721; 99284

== ENCOUNTER 2019-05-21 | Outpatient (CLI) | payer OTHER | END 2019-05-21 19:36 | disposition short-term general hospital (02) | DX: I20.0 Unstable angina (principal) | CPT/HCPCS: A0425; A0426 ==

== ENCOUNTER 2019-05-26 09:32 | Observation (INO) | payer OTHER ==
[2019-05-26] MEDS ORDERED: NITROGLYCERIN SL 0.4 MG TABLET SL STA (09:49)
[2019-05-26] MEDS ORDERED: ASPIRIN CHEW 81 MG TABLET PO STA (09:52)
--- NOTE | 2019-05-26 09:55 | ED Physician Documentation ---
PD HPI CHEST PAIN - Stated complaint Stated Complaint: CHEST DISCOMFORT - Chief complaint Chief Complaint: Cardiac - Additional information Additional information: This is a 48-year-old male with a history of hypertension, hypercholesterolemia, CAD status post PCI x3 on Saturday at [facility] in [place]., Who presents with chest discomfort. Patient initially presented on Saturday with chest discomfort, he was admitted to this hospital and had a stress test that was positive so he was sent to [facility] in [place] for catheterization, which was performed with Dr. Horowitz. There were 3 stents placed he is unsure exactly which vessels they were placed in. He was started on ticagrelor and baby aspirin, has been taking these medications as prescribed. He was feeling well until around 3 AM this morning when he developed burning epigastric pain radiating up his chest. He drank some milk and the sensation subsided somewhat but then it was replaced to the feeling of chest pressure as if someone was sitting on his chest. It was moderate in severity and it is been waning since he arrived in the hospital. He denies shortness of breath but states that his breathing does not "feel entirely normal". He denies any history of blood clots. No cough, fever. Review of Systems Constitutional: denies: Fever Eyes: denies: Loss of vision Nose: denies: Rhinorrhea / runny nose Cardiac: reports: Chest pain / pressure Respiratory: denies: Cough, Hemoptysis GI: denies: Vomiting Skin: denies: Rash Musculoskeletal: denies: Neck pain Neurologic: denies: Syncope Immunocompromised: denies: Immunocompromised PD PAST MEDICAL HISTORY - Past Medical History Past Medical History: Yes Cardiovascular: Hypertension, High cholesterol Respiratory: Sleep apnea, CPAP use, Other Endocrine/Autoimmune: None GI: GERD : Incontinence HEENT: Other Psych: Depression Musculoskeletal: Chronic back pain Derm: Eczema - Past Surgical History Past Surgical History: No Cardiovascular: Coronary stent - Present Medications Home Medications: Ambulatory Orders Medication Instructions Recorded Confirmed RX: Meloxicam [Mobic] 15 mg PO DAILY PRN 09/11/14 05/26/19 RX: Sildenafil Citrate [Viagra] 100 mg PO DAILY PRN 09/11/14 05/26/19 RX: Tamsulosin [Flomax] 0.4 mg PO QPM 09/11/14 05/26/19 RX: Trazodone HCl 50 mg PO QPM PRN 09/11/14 05/26/19 RX: Acetaminophen 650 mg PO BID PRN 05/20/19 05/26/19 RX: Cholecalciferol (Vitamin D3) 2,000 units PO DAILY 05/20/19 05/26/19 [Vitamin D3] RX: Cyclobenzaprine [Flexeril] 10 mg PO Q8H PRN 05/20/19 05/26/19 RX: Glucos Sul 2Kcl/MSM/Chond/C/Mn 1 tab PO DAILY 05/20/19 05/26/19 [Glucosamine Chondroitin Cap] RX: Aspirin [Aspirin EC] 81 mg PO DAILY 05/26/19 05/26/19 RX: Atorvastatin Calcium 80 mg PO QPM 05/26/19 05/26/19 RX: Metoprolol Succinate 25 mg PO DAILY 05/26/19 05/26/19 RX: Ticagrelor [Brilinta] 90 mg PO BID 05/26/19 05/26/19 - Allergies Allergies/Adverse Reactions: Allergies Allergy/AdvReac Type Severity Reaction Status Date / Time latex Allergy Intermediate Itching Verified 05/26/19 09:44 acetaminophen Allergy Itching Verified 05/26/19 09:44 [From Tylenol-Codeine #3] codeine Allergy Itching Verified 05/26/19 09:44 [From Tylenol-Codeine #3] hydromorphone HCl * Allergy Itching Verified 05/26/19 09:44 [From Dilaudid] oxycodone [Oxycodone] Allergy Unknown Verified 05/26/19 09:44 - Social History Does the pt smoke?: No Smoking Status: Never smoker Does the pt drink ETOH?: Yes Does the pt have substance abuse?: No - Immunizations Immunizations are current?: Yes PD ED PE NORMAL - Vitals Vital signs reviewed: Yes - General General: Alert and oriented X 3, No acute distress - HEENT HEENT: PERRL - Neck Neck: Supple, no meningeal sign - Cardiac Cardiac: RRR, No murmur - Respiratory Respiratory: Clear bilaterally - Abdomen Abdomen: Soft, Non tender, Non distended - Derm Derm: Warm and dry - Extremities Extremities: No deformity - Neuro Neuro: Alert and oriented X 3 - Psych Psych: Normal mood, Normal affect Results - Vitals Vitals: Oxygen O2 Source Room air - EKG (time done) 9:33 Other comments: Other comments - Labs Labs: Laboratory Tests 05/26/19 05/26/19 05/26/19 09:43 09:43 09:43 WBC 8.4 RBC 4.57 L Hgb 15.2 Hct 44.7 MCV 97.8 H MCH 33.3 H MCHC 34.0 RDW 11.9 L Plt Count 282 MPV 9.5 Neut # (Auto) 5.9 Lymph # (Auto) 1.7 Mcpherson # (Auto) 0.5 Eos # (Auto) 0.1 Baso # (Auto) 0.1 Absolute Nucleated RBC 0.00 Nucleated RBC % 0.0 Sodium 141 Potassium 4.1 Chloride 103 Carbon Dioxide 25 Anion Gap 13.0 BUN 15 Creatinine 1.0 Estimated GFR (MDRD) 79 L Glucose 126 H Calcium 9.5 Total Bilirubin 0.6 AST 42 ALT 63 H Alkaline Phosphatase 66 CK-MB (CK-2) Troponin I 0.28 Troponin I High Sens 264.4 H* Total Protein 7.9 Albumin 4.2 Globulin 3.7 Albumin/Globulin Ratio 1.1 Lipase 105 H 05/26/19 12:20 WBC RBC Hgb Hct MCV MCH MCHC RDW Plt Count MPV Neut # (Auto) Lymph # (Auto) Mcpherson # (Auto) Eos # (Auto) Baso # (Auto) Absolute Nucleated RBC Nucleated RBC % Sodium Potassium Chloride Carbon Dioxide Anion Gap BUN Creatinine Estimated GFR (MDRD) Glucose Calcium Total Bilirubin AST ALT Alkaline Phosphatase CK-MB (CK-2) 0.9 Troponin I 0.29 Troponin I High Sens 252.4 H* Total Protein Albumin Globulin Albumin/Globulin Ratio Lipase - Rads (name of study) CXR Radiology: Prelim report reviewed (No acute cardiopulmonary abnormality) PD MEDICAL DECISION MAKING - ED course Complexity details: considered differential (ACS, GERD, pneumonia, pleural effusion, peptic ulcer disease, dysrhythmia,pneumothorax) ED course: Pt presents with chest pressure after recent cardiac cath. His EKG shows slight T wave inversion in aVL, otherwise unremarkable. I do not have a prior post-cath EKG for comparison. He initially was hypertensive, 1 SL nitroglycerin given with improvement of his BP and symptoms. Initial troponin is 0.28, consistent with post-catheterization status. I spoke with Dr. Horowitz who performed the patient's catheterization and reviewed the case with him. He states that the troponin elevation is within the realm of what he would expect after catheterization, recommend adding a CK-MB as well. He thought it was unlikely that patient was having a stent occlusion or other acute coronary syndrome, given the mildness of his symptoms the lack of significant EKG changes in the level of the troponin. Recommended patient be admitted to observation for serial troponins, or transferred if his troponins uptrend. Repeat troponin in the ED was 0.29, essentially unchanged and within the laboratory error. high-sensitivity troponin is down-trending. Pt remains asymptomatic. CXR unremarkable. I discussed our results and observation admission with patient, who is in agreement. He was admitted to the hospitalist service, please refer to their notes for further course. Departure - Departure Disposition: ED Place in Observation Clinical Impression: Chest pain Qualifiers: Chest pain type: other chest pain Qualified Code(s): R07.89 - Other chest pain Condition: Good Discharge Date/Time: 05/26/19 14:45
[2019-05-26 09:58] LABS: BASOPHILS # (AUTO) 0.1 10^3/uL (0.0-0.1); BASOPHILS % (AUTO) 0.6 %; EOSINOPHILS # (AUTO) 0.1 10^3/uL (0.0-0.7); EOSINOPHILS % (AUTO) 1.1 %; HGB - HEMOGLOBIN 15.2 g/dL (14.0-18.0); LYMPHOCYTES # (AUTO) 1.7 10^3/uL (1.5-3.5); LYMPHOCYTES % (AUTO) 20.8 %; MEAN CORPUSCULAR HEMOGLOBIN 33.3 pg (27.0-31.0); MEAN CORPUSCULAR VOLUME 97.8 fL (80.0-94.0); MEAN PLATELET VOLUME 9.5 fL (7.4-11.4); MONOCYTES # (AUTO) 0.5 10^3/uL (0.0-1.0); MONOCYTES % (AUTO) 5.7 %; NEUTROPHILS # (AUTO) 5.9 10^3/uL (1.5-6.6); NEUTROPHILS % (AUTO) 71.2 %; PLT - PLATELET COUNT 282 10^3/uL (130-450); RED BLOOD COUNT 4.57 10^6/uL (4.70-6.10); RED CELL DISTRIBUTION WIDTH 11.9 % (12.0-15.0); WHITE BLOOD COUNT 8.4 x10^3/uL (4.8-10.8)
[2019-05-26 10:08] LABS: ALBUMIN 4.2 g/dL (3.2-5.5); ALBUMIN/GLOBULIN RATIO 1.1 (1.0-2.2); BILIRUBIN,TOTAL 0.6 mg/dL (0.2-1.0); CALCIUM 9.5 mg/dL (8.5-10.3); TOTAL PROTEIN 7.9 g/dL (6.7-8.2)
[2019-05-26 10:13] LABS: TROPONIN I 0.28 ng/mL (<0.49)
--- NOTE | 2019-05-26 10:20 | XRAY Report ---
Reason: chest pain Procedure Date: 05/26/2019 Accession Number: [id number] / [id number] Procedure: XR - Chest 2 View X-Ray CPT Code: 52321 FULL RESULT: EXAM: CHEST RADIOGRAPHY EXAM DATE: 05/26/2019 10:09 AM. CLINICAL HISTORY: Chest pain. COMPARISON: CHEST 1 VIEW 05/20/2019 10:05 AM. TECHNIQUE: 2 views. FINDINGS: Lungs/Pleura: No focal opacities evident. No pleural effusion. No pneumothorax. Normal volumes. Mediastinum: Heart and mediastinal contours are unremarkable. Other: None. IMPRESSION: Normal 2-view chest radiography. RADIA
[2019-05-26 12:53] LABS: TROPONIN I 0.29 ng/mL (<0.49)
[2019-05-26 12:55] LABS: CREATINE KINASE MB 0.9 ng/mL (0.6-6.3)
[2019-05-26] MEDS ORDERED: ACETAMINOPHEN 325 MG TABLET PO PRN (13:34)
[2019-05-26] MEDS ORDERED: SODIUM CHLORIDE FLUSH 0.9% 10 ML SYRINGE IVP PRN (13:34)
[2019-05-26] MEDS ORDERED: ONDANSETRON ODT 4 MG TABLET TL PRN (14:55)
[2019-05-26] MEDS: PANTOPRAZOLE 40 MG VIAL IVP SCH (15:13)
--- NOTE | 2019-05-26 16:02 | HISTORY & PHYSICAL EXAMINATION ---
Chief Complaint - Chief Complaint Chief Complaint: chst pain History of Present Illness - Admitted From Admitted From:: Home/emergency room - History Obtained From Records Reviewed: [facility] History obtained from: Patient and ER MD Exam Limitations: none - History of Present Illness HPI Comment/Other: [place] male who has risk factors for heart disease including hypertension, male sex, hyperlipidemia and was just here last Saturday with chest discomfort. Serial cardiac enzymes were negative. However a follow-up stress test was positive. As such he was transferred to [facility], at [facility], in [place] and he was seen by Cardiology there where he underwent 3 stents. That was on May 22. He was started on baby aspirin and ticagrelor Dinner was that his usual time around 6 PM yesterday evening. He then awoke at 3 AM. He had a substernal burning sensation associated with belching. He thought it was indigestion so he took some milk and he got better. While the burning went away, the feeling that something was pressing on his chest was not going away. He called his cardiolog ist who said that he should probably come on into the emergency room to be evaluated. By the time he got here he has not had any more chest pressure. The chest pressure was nonradiating. There is no palpitations. There was no nausea, diaphoresis. There is no jaw pain, arm pain, or left forearm pain. In the emergency room he is mildly hypertensive at 132/101. But his labs were normal with a CBC and a CMP. EKG showed no acute changes. His initial troponin was 0.28. High-sensitivity troponin was 264.4. A repeat troponin approximately 3 hours later was 0.29 with high intense sensitivity troponin II 152. The emergency room physician spoke to his night guard. The night guard feels that the patient does not need to be transferred. The patient is placed here for further troponin testing. If troponins are elevated the night guard should be called back. The patient himself would like to go home. He says that he has been pain-free since being in the emergency room. He is eating lunch, and there is been no recurrence of chest pain. History - Past Medical History Cardiovascular: reports: Hypertension, High cholesterol Respiratory: reports: Sleep apnea, CPAP use, Other Endocrine/Autoimmune: reports: None GI: reports: GERD : reports: Incontinence HEENT: reports: Other Psych: reports: Depression Musculoskeletal: reports: Chronic back pain Derm: reports: Eczema MRSA Hx?: No - Past Surgical History Cardiovascular: reports: Coronary stent - Family & Social History Family History Comment/Other: Parents w HTN, DM. sibligns with HTN, CAD. children healthy Living arrangement: At home Living Situation: With spouse/s.o., With family Social History Notes: He smoked as a teenager then stopped after 2 years. About ten years ago, he started smoking again but stopped again recently. He denies alcohol and drug issue. Retired from the [employer]. From [employer]. - Substance History Use: Uses substance without health or social issues: NONE Abuse: Recurrent use of substance despite neg consequences: NONE Dependence: Experiences withdrawal or developed tolerances: NONE - POLST Patient has POLST: No POLST Status: Full Code Meds/Allgy - Home Medications Home Medications: Ambulatory Orders Medication Instructions Recorded Confirmed Lisinopril 20 mg PO DAILY 09/11/14 05/20/19 Meloxicam [Mobic] 15 mg PO DAILY 09/11/14 05/20/19 Sildenafil Citrate [Viagra] 100 mg PO DAILY PRN 09/11/14 05/20/19 Simvastatin 40 mg PO DAILY 09/11/14 05/20/19 Tamsulosin [Flomax] 0.4 mg PO DAILY 09/11/14 05/20/19 Trazodone HCl 50 mg PO QPM PRN 09/11/14 05/20/19 Acetaminophen 650 mg PO BID PRN 05/20/19 05/20/19 Cholecalciferol (Vitamin D3) 2,000 units PO DAILY 05/20/19 05/20/19 [Vitamin D3] Cyclobenzaprine [Flexeril] 10 mg PO Q8H PRN 05/20/19 05/20/19 Glucos Sul 2Kcl/MSM/Chond/C/Mn 1 tab PO DAILY 05/20/19 05/20/19 [Glucosamine Chondroitin Cap] - Allergies Allergies/Adverse Reactions: Allergies Allergy/AdvReac Type Severity Reaction Status Date / Time latex Allergy Intermediate Itching Verified 05/26/19 09:44 acetaminophen Allergy Itching Verified 05/26/19 09:44 [From Tylenol-Codeine #3] codeine Allergy Itching Verified 05/26/19 09:44 [From Tylenol-Codeine #3] hydromorphone HCl * Allergy Itching Verified 05/26/19 09:44 [From Dilaudid] oxycodone [Oxycodone] Allergy Unknown Verified 05/26/19 09:44 Review of Systems - Constitutional Constitutional: denies: Fatigue, Fever, Chills, Malaise, Weakness, Poor appetite - Eyes Eyes: denies: Pain, Irritation, Amaurosis, Vision loss, Dipolpia - Ears, Nose & Throat Ears, Nose & Throat: denies: Hearing loss, Vertigo, Postnasal drainage, Sore throat - Cardiovascular Cariovascular: denies: Irregular heart rate, Palpitations, Edema, Lightheadedness, Syncope, Exertional dyspnea, Decr. exercise tolerance - Respiratory Respiratory: denies: Cough, SOB at rest, SOB with exertion, Apnea - Gastrointestinal Gastrointestinal: denies: Abdominal pain, Abdominal distention, Constipation, Diarrhea, Change in bowel habits, Rectal bleeding, David blood emesis - Genitourinary Genitourinary: denies: Dysuria, Frequency, Urgency, Flank pain - Musculoskeletal Musculoskeletal: denies: Muscle pain, Muscle aches, Joint pain - Integumentary Integumentary: denies: Rash, Pruritis - Neurological Neurological: denies: General weakness, Headache, Memory problems, Pre-existing deficit - Psychiatric Psychiatric: denies: Depression, Anxiety, Suicidal - Endocrine Endocrine: denies: Polyuria, Polydypsia, Polyphagia Prior Level of Functionality: Home/emergency room independent middle-aged male who still drives a car, works full-time, pays his bills, and is very active on his day-to-day existence. Exam - Vital Signs Reviewed Vital Signs: Yes Vital Signs: Vital Signs x48h Temp Pulse Pulse Pulse Resp BP BP 05/26/19 15:53 37.0 C 83 24 103/73 05/26/19 14:54 36.7 C 63 14 114/82 H 05/26/19 14:17 70 14 113/94 H 05/26/19 11:39 62 20 119/82 H 05/26/19 10:33 76 17 111/81 H 05/26/19 09:45 37.1 C 88 19 132/101 H 05/26/19 09:40 37.1 C 82 18 132/101 H Pulse Ox 05/26/19 15:53 100 05/26/19 14:54 100 05/26/19 14:17 98 05/26/19 11:39 100 05/26/19 10:33 97 05/26/19 09:45 98 05/26/19 09:40 98 - Physical Exam General Appearance: positive: No acute distress, Alert, Other ( Middle-aged [place] male who is sitting comfortably in bed, watching TV, eating his axilla and enjoying it quite a bit.) Eyes Bilateral: positive: PERRL, EOMI ENT: positive: Pharynx nml Neck: positive: No JVD. negative: Stiff neck, Carotid bruit Respiratory: positive: Chest non-tender. negative: Wheezes, Rales, Rhonchi Cardiovascular: positive: Regular rate & rhythm. negative: No murmur, Systolic murmur, Diastolic murmur, Gallop/S4 Peripheral Pulses: positive: 1+ Abdomen: positive: Non-tender, No organomegaly, Nml bowel sounds, No distention Skin: positive: Warm, Dry Extremities: positive: Non-tender. negative: No pedal edema, Pedal edema Neurologic/Psychiatric: positive: Oriented x3, CN's nml (2-12), Motor nml. negative: Weakness, Facial droop Conclusion/Plan - Problem List (1) Chest pain Conclusion/Plan: Placed in observation. Serial cardiac enzymes. Consider discharge at 12 to 16 hours if cardiac enzymes remain all stable. Follow-up with night guard as soon as possible. In view of his recent cardiac stents, this is the timeframe that his stents would close down No change in his medications of beta-irena, aspirin, and Brilinta Qualifiers: Chest pain type: other chest pain Qualified Code(s): R07.89 - Other chest pain; R07.8 - Other chest pain (2) HTN (hypertension) Conclusion/Plan: No change in his medications of beta-irena, aspirin, and Brilinta in the e mergency room his blood pressure was 132/101. Since being transferred to [facility] his blood pressure has been 119/82, 113/94. No change in his medication. He is currently on lisinopril. Qualifiers: Hypertension type: essential hypertension Qualified Code(s): I10 - Essential (primary) hypertension - Lab Results Lab results reviewed: Yes Fish Bones: 05/26/19 09:43 05/26/19 09:43 - EKG Results EKG Interpreted Independently: No EKG Comparison: Other (EKG has not been scanned from the emergency room and as it is not available for me to review. Per emergency room physician, There are no acute ischemic changes..) Core Measures - Anticipated LOS I expect patient to be DC'd or transferred within 96 hours.: Yes - DVT/VTE - Prophylaxis VTE/DVT Device ordered at admit?: Yes
[2019-05-26 18:21] LABS: TROPONIN I 0.3 ng/mL (<0.49)
[2019-05-26] MEDS: SODIUM CHLORIDE FLUSH 0.9% 10 ML SYRINGE IVP SCH (21:39)
[2019-05-26] MEDS ORDERED: CLOPIDOGREL 75 MG TABLET PO SCH (22:57)
[2019-05-26] MEDS: ATORVASTATIN 40 MG TABLET PO SCH ×2 (23:17→23:18)
[2019-05-27 00:22] LABS: TROPONIN I 0.33 ng/mL (<0.49)
[2019-05-27] MEDS: SODIUM CHLORIDE FLUSH 0.9% 10 ML SYRINGE IVP SCH ×2 (01:45→06:46)
[2019-05-27] MEDS: PANTOPRAZOLE 40 MG VIAL IVP SCH (06:46)
[2019-05-27 07:27] VITALS: BP 91/61
--- NOTE | 2019-05-27 08:39 | Discharge Plan ---
Discharge Plan Problem Reviewed?: Yes Disposition: Home, Self Care Condition: Good Diet: Cardiac Activity Restrictions: No Restrictions Shower Restrictions: No Driving Restrictions: No Health Concerns: You just had 3 stents put in your heart arteries on 05/29 and came to our ER with chest pain that started at 3 am. So far your blood tests for heart muscle damage are NOT negative but they are not high enough for us to say you are having a heart attack. I have not spoken to your specific Meter Engineer, Matheus Horowitz MD, but I did speak to his weapons specialist team, Dr. Booker. They know you were here. Plan of Treatment: To continue your aspirin, cholesterol drug, and the blood thinner, Brillinta. Care Goals: 1. Please make sure you take your medicines regularly so as not to close off the new stents. 2. See your compression molding machine tender, Dr. Horowitz, in the next few days. Assessment: Patient understands goals and agrees to follow thru.. No Smoking: If you smoke, Please STOP! Call for help. Follow-up with: Tierra Benton MD [Primary Care Provider] -
[2019-05-27] MEDS ORDERED: TAMSULOSIN 0.4 MG CAPSULE PO SCH (09:00)
[2019-05-27] MEDS ORDERED: POLYETHYLENE GLYCOL 3350 17 GM PACKET PO SCH (09:00)
--- NOTE | 2019-05-29 10:26 | DISCHARGE SUMMARY ---
"Discharge Summary Admit Date: 05/26/19 Discharge Date: 05/27/19 Discharging Provider: Rhianna Guzman MD Primary Care Provider: Jonny CURRIE Code Status: Attempt Resuscitation Condition at Discharge: Good Discharge Disposition: 01 Home, Self Care - DIAGNOSES Discharge Diagnoses with Status of Each Condition: 1. Chest pain, resolved 2. CAD, s/p 3 PCI stents 05/22/19 3. Abnormal troponins 4. HTN - HPI History of Present Illness: [place] male who has risk factors for heart disease including hypertension, male sex, hyperlipidemia and was just here last Saturday with chest discomfort. Serial cardiac enzymes were negative. However a follow-up stress test was positive. As such he was transferred to [facility], at [facility], in [place] and he was seen by Cardiology there where he underwent 3 stents. That was on May 22. He was started on baby aspirin and ticagrelor Dinner was that his usual time around 6 PM yesterday evening. He then awoke at 3 AM. He had a substernal b urning sensation associated with belching. He thought it was indigestion so he took some milk and he got better. While the burning went away, the feeling that something was pressing on his chest was not going away. He called his general manager who said that he should probably come on into the emergency room to be evaluated. By the time he got here he has not had any more chest pressure. The chest pressure was nonradiating. There is no palpitations. There was no nausea, diaphoresis. There is no jaw pain, arm pain, or left forearm pain. In the emergency room he is mildly hypertensive at 132/101. But his labs were normal with a CBC and a CMP. EKG showed no acute changes. His initial troponin was 0.28. High-sensitivity troponin was 264.4. A repeat troponin approximately 3 hours later was 0.29 with high intense sensitivity troponin II 152. The emergency room physician spoke to his general manager. The general manager feels that the patient does not need to be transferred. The patient is placed here for further troponin testing. If troponins are elevated the general manager should be called back. The patient himself would like to go home. He says that he has been pain-free since being in the emergency room. He is eating lunch, and there is been no recurrence of chest pain. History - Past Medical History Cardiovascular: reports: Hypertension, High cholesterol Respiratory: reports: Sleep apnea, CPAP use, Other Endocrine/Autoimmune: reports: None GI: reports: GERD : reports: Incontinence HEENT: reports: Other Psych: reports: Depression Musculoskeletal: reports: Chronic back pain Derm: reports: Eczema MRSA Hx?: No - CONSULTS | PROCEDURES Procedures: Laboratory Tests 05/26/19 05/26/19 05/26/19 09:43 12:20 17:58 Troponin I 0.28 0.29 0.30 Troponin I High Sens 264.4 H* 252.4 H* 276.7 H* 05/26/19 05/27/19 23:55 05:30 Troponin I 0.33 Troponin I High Sens 289.5 H* 207.9 H* - HOSPITAL COURSE Hospital Course: The chest pain that woke him up at 3 in the morning was resolved by the time he got to the emergency room. EKGs were noncontributory and that they had no acute ischemic changes. His general manager was Dr. Horowitz. But he was not vector control specialist for his group, [facility] cardiology out of [facility]. I spoke to Dr. Santoyo who was on-call. We discussed the abnormal troponins which were felt to be not clinically significant. The patient had no chest pain. He was to be continued on his aspirin and Brilinta. Dr. Santoyo asked the patient see them in follow-up in the near future. As such the patient was discharged in stable condition with no change in medications. Temperature was 36.6, pulse was 67, blood pressure 91/61, respirations 16 and 98% on room air. Throughout his stay blood pressure was low. He was 103 systolic, down to 91 systolic. The highest he was was the blood pressure on admission at 114/82. He was a short statured, 5 foot, 4 inch, 68.9 kg [place] male. Well-groomed, well-nourished. Neck was supple without goiter or bruits. Lungs were clear to auscultation and percussion without any increased respiratory effort. PMI was normally placed with a regular rate and rhythm. Skin was warm, dry. He was comfortable on several exams done during hospital where he was seated watching TV, eating dinner, or walking in his room without any increased respiratory effort or chest pain. Extremities had no edema. He denied dizziness, headache, chest pain. He is asked to follow-up with his primary care provider, [facility]. And also see Dr. Horowitz in follow-up. If he has any further chest pain, to come to our Emergency Room, but anticipate transfer to [facility]. - ALLERGIES Allergies/Adverse Reactions: Allergies Allergy/AdvReac Type Severity Reaction Status Date / Time latex Allergy Intermediate Itching Verified 05/26/19 09:44 acetaminophen Allergy Itching Verified 05/26/19 09:44 [From Tylenol-Codeine #3] codeine Allergy Itching Verified 05/26/19 09:44 [From Tylenol-Codeine #3] hydromorphone HCl * Allergy Itching Verified 05/26/19 09:44 [From Dilaudid] oxycodone [Oxycodone] Allergy Unknown Verified 05/26/19 09:44 - MEDICATIONS Home Medications: Ambulatory Orders Medication Instructions Recorded Confirmed Meloxicam [Mobic] 15 mg PO DAILY PRN 09/11/14 05/26/19 Sildenafil Citrate [Viagra] 100 mg PO DAILY PRN 09/11/14 05/26/19 Tamsulosin [Flomax] 0.4 mg PO QPM 09/11/14 05/26/19 Trazodone HCl 50 mg PO QPM PRN 09/11/14 05/26/19 Acetaminophen 650 mg PO BID PRN 05/20/19 05/26/19 Cholecalciferol (Vitamin D3) 2,000 units PO DAILY 05/20/19 05/26/19 [Vitamin D3] Cyclobenzaprine [Flexeril] 10 mg PO Q8H PRN 05/20/19 05/26/19 Glucos Sul 2Kcl/MSM/Chond/C/Mn 1 tab PO DAILY 05/20/19 05/26/19 [Glucosamine Chondroitin Cap] Aspirin [Aspirin EC] 81 mg PO DAILY 05/26/19 05/26/19 Atorvastatin Calcium 80 mg PO QPM 05/26/19 05/26/19 Metoprolol Succinate 25 mg PO DAILY 05/26/19 05/26/19 Ticagrelor [Brilinta] 90 mg PO BID 05/26/19 05/26/19 - LABS Result Diagrams: 05/26/19 09:43 05/26/19 09:43"
== END 2019-05-27 09:09 | disposition home or self-care (01) ==
LOC: ED 09:32 → MS2 13:34
PROVIDERS: ADMIT Specialist; ATTEND Specialist
DX: R07.89 Other chest pain (principal); R79.89 Other specified abnormal findings of blood chemistry; I10 Essential (primary) hypertension; E78.5 Hyperlipidemia, unspecified; I25.10 Atherosclerotic heart disease of native coronary artery without angina pectoris; Z95.5 Presence of coronary angioplasty implant and graft; G47.30 Sleep apnea, unspecified; K21.9 Gastro-esophageal reflux disease without esophagitis; Z79.899 Other long term (current) drug therapy; Z79.82 Long term (current) use of aspirin; Z87.891 Personal history of nicotine dependence; Z82.49 Family history of ischemic heart disease and other diseases of the circulatory system; Z79.02 Long term (current) use of antithrombotics/antiplatelets
CPT/HCPCS: 36415; 71046; 80053; 82553; 83690; 84484; 85025; 93005; 96374; 96376; 99285; A9270; G0378; Q0162

== ENCOUNTER 2019-12-15 08:55 | Emergency (ER) | payer OTHER ==
--- NOTE | 2019-12-15 09:09 | ED Physician Documentation ---
PD HPI ABD PAIN - Stated complaint Stated Complaint: ABD PX - Chief complaint Chief Complaint: Abd Pain - History obtained from History obtained from: Patient - History of Present Illness Timing - onset: Yesterday Timing - duration: Days (10/22) Timing - details: Abrupt onset, Still present Quality: Cramping, Aching, Pain Location: RUQ, Epigastric Radiation: Right flank. No: Chest, Lower back Improved by: Laying still. No: Eating Worsened by: Moving. No: Eating, Breathing, Palpation Associated symptoms: Other (mild cough and body aches). No: Fever, Nausea, Vomiting, Diarrhea, Dysuria Similar symptoms before: Has not had sx before Recently seen: Not recently seen Review of Systems Constitutional: reports: Myalgias. denies: Fever, Chills Nose: denies: Rhinorrhea / runny nose, Congestion Throat: denies: Sore throat Respiratory: reports: Cough GI: reports: Abdominal Pain, Nausea. denies: Vomiting, Diarrhea : denies: Dysuria, Frequency Skin: denies: Rash Musculoskeletal: denies: Neck pain, Back pain Neurologic: reports: Generalized weakness. denies: Focal weakness, Numbness, Near syncope PD PAST MEDICAL HISTORY - Past Medical History Past Medical History: Yes Cardiovascular: Hypertension, High cholesterol Respiratory: Sleep apnea, CPAP use, Other Neuro: None Endocrine/Autoimmune: None GI: GERD : Incontinence HEENT: Other Psych: Depression Musculoskeletal: Chronic back pain Derm: Eczema - Past Surgical History Past Surgical History: Yes Cardiovascular: Coronary stent - Present Medications Home Medications: Ambulatory Orders Medication Instructions Recorded Confirmed Meloxicam [Mobic] 15 mg PO DAILY PRN 09/11/14 05/26/19 Sildenafil Citrate [Viagra] 100 mg PO DAILY PRN 09/11/14 05/26/19 Tamsulosin [Flomax] 0.4 mg PO QPM 09/11/14 05/26/19 Trazodone HCl 50 mg PO QPM PRN 09/11/14 05/26/19 Acetaminophen 650 mg PO BID PRN 05/20/19 05/26/19 Cholecalciferol (Vitamin D3) 2,000 units PO DAILY 05/20/19 05/26/19 [Vitamin D3] Cyclobenzaprine [Flexeril] 10 mg PO Q8H PRN 05/20/19 05/26/19 Glucos Sul 2Kcl/MSM/Chond/C/Mn 1 tab PO DAILY 05/20/19 05/26/19 [Glucosamine Chondroitin Cap] Aspirin [Aspirin EC] 81 mg PO DAILY 05/26/19 05/26/19 Atorvastatin Calcium 80 mg PO QPM 05/26/19 05/26/19 Metoprolol Succinate 25 mg PO DAILY 05/26/19 05/26/19 Ticagrelor [Brilinta] 90 mg PO BID 05/26/19 05/26/19 Docusate Sodium 100 mg PO DAILY #15 capsule 12/15/19 Tramadol HCl 50 mg PO Q6H PRN #15 tablet 12/15/19 - Allergies Allergies/Adverse Reactions: Allergies Allergy/AdvReac Type Severity Reaction Status Date / Time latex Allergy Intermediate Itching Verified 12/15/19 08:57 acetaminophen Allergy Itching Verified 12/15/19 08:57 [From Tylenol-Codeine #3] codeine Allergy Itching Verified 12/15/19 08:57 [From Tylenol-Codeine #3] hydromorphone HCl * Allergy Itching Verified 12/15/19 08:57 [From Dilaudid] oxycodone [Oxycodone] Allergy Unknown Verified 12/15/19 08:57 - Social History Does the pt smoke?: No Smoking Status: Former smoker Does the pt drink ETOH?: Yes Does the pt have substance abuse?: No - Immunizations Immunizations are current?: Yes - POLST Patient has POLST: No POLST Status: Full Code PD ED PE NORMAL - Vitals Vital signs reviewed: Yes - General General: Alert and oriented X 3, No acute distress, Well developed/nourished - HEENT HEENT: Moist mucous membranes, Pharynx benign - Neck Neck: Supple, no meningeal sign, No adenopathy - Cardiac Cardiac: RRR, No murmur - Respiratory Respiratory: Clear bilaterally - Abdomen Abdomen: Normal bowel sounds, Soft, Non distended, No organomegaly, Other (tender RUQ and epigastric area without guarding nor percussion tenderness. ) - Male Male : Deferred - Rectal Rectal: Deferred - Back Back: No CVA TTP - Derm Derm: Normal color, Warm and dry - Extremities Extremities: No deformity, No tenderness to palpate, Normal ROM s pain, No edema, No calf tenderness / cord - Neuro Neuro: Alert and oriented X 3, No motor deficit, Normal speech Results - Vitals Vitals: Vital Signs - 24 hr 12/15/19 12/15/19 12/15/19 08:58 09:00 11:00 Temperature 36.5 C 36.9 C 36.8 C Heart Rate 81 63 63 Respiratory 14 17 16 Rate Blood Pressure 156/91 H 151/101 H 144/90 H O2 Saturation 100 199 H 99 12/15/19 12/15/19 13:00 13:33 Temperature 37.3 C 37.3 C Heart Rate 65 Respiratory 16 18 Rate Blood Pressure 132/97 H 132/87 H O2 Saturation 100 100 Oxygen O2 Source Room air - Labs Labs: Laboratory Tests 12/15/19 12/15/19 12/15/19 09:31 09:31 09:50 WBC 6.7 RBC 4.60 L Hgb 15.5 Hct 45.1 MCV 98.0 H MCH 33.7 H MCHC 34.4 RDW 12.0 Plt Count 266 MPV 9.5 Neut # (Auto) 4.4 Lymph # (Auto) 1.7 [place] # (Auto) 0.5 Eos # (Auto) 0.1 Baso # (Auto) 0.1 Absolute Nucleated RBC 0.00 Nucleated RBC % 0.0 Sodium 140 Potassium 4.4 Chloride 103 Carbon Dioxide 28 Anion Gap 9.0 BUN 16 Creatinine 1.0 Estimated GFR (MDRD) 79 L Glucose 108 H Calcium 9.3 Total Bilirubin 0.6 AST 30 ALT 43 Alkaline Phosphatase 58 Total Protein 7.4 Albumin 4.6 Globulin 2.8 Albumin/Globulin Ratio 1.6 Lipase 29 Urine Color YELLOW Urine Clarity CLEAR Urine pH 6.5 Ur Specific [place] 1.010 Urine Protein NEGATIVE Urine Glucose (UA) NEGATIVE Urine Ketones NEGATIVE Urine Occult Blood NEGATIVE Urine Nitrite NEGATIVE Urine Bilirubin NEGATIVE Urine Urobilinogen 0.2 (NORMAL) Ur Leukocyte Esterase NEGATIVE Ur Microscopic Review NOT INDICATED Urine Culture Comments NOT INDICATED - Rads (name of study) URQ abd U/S Radiology: Prelim report reviewed (normal), See rad report abd CT Radiology: Prelim report reviewed (no acute process), See rad report PD MEDICAL DECISION MAKING - ED course Complexity details: reviewed results, re-evaluated patient (improved with just nonnarcotic meds. ), considered differential (seems lkely GB or liver. Check labs for pancreatic as well. Start with U/S and then to CT if not diagnostic. ), d/w patient Departure - Departure Disposition: 01 Home, Self Care Clinical Impression: Right upper quadrant abdominal pain Condition: Stable Record reviewed to determine appropriate education?: Yes Instructions: ED Abdominal Pain Unkn Cause Follow-Up: Tierra Benton MD [Primary Care Provider] - Prescriptions: Docusate Sodium 100 mg PO DAILY #15 capsule Tramadol HCl 50 mg PO Q6H PRN #15 tablet PRN Reason: Pain Comments: The lab tests ultrasound and CT scan did not show any obvious acute abnormalities. The pain you are having may be intestinal or inflammatory. Continue usual medicines including the Mobic. Add Tylenol every 4 hours if needed for pains. Add Tramadol if needed for pain beyond that. Consider mild stool softener such as docusate daily for the next several days. Recheck if not improved well over the next couple of days and should return sooner or follow-up if he have increasing pain, more diffuse pain, fevers, vomiting, bloody stools or other concerns. Discharge Date/Time: 12/15/19 13:35
[2019-12-15] MEDS ORDERED: KETOROLAC 30 MG/ML VIAL IVP STA (09:41)
[2019-12-15] MEDS ORDERED: ONDANSETRON 4 MG/2 ML VIAL IVP STA (09:41)
[2019-12-15 09:44] LABS: BASOPHILS # (AUTO) 0.1 10^3/uL (0.0-0.1); EOSINOPHILS # (AUTO) 0.1 10^3/uL (0.0-0.7); EOSINOPHILS % (AUTO) 1.6 %; HGB - HEMOGLOBIN 15.5 g/dL (14.0-18.0); LYMPHOCYTES # (AUTO) 1.7 10^3/uL (1.5-3.5); LYMPHOCYTES % (AUTO) 24.8 %; MEAN CORPUSCULAR HEMOGLOBIN 33.7 pg (27.0-31.0); MEAN CORPUSCULAR HGB CONC 34.4 g/dL (32.0-36.0); MEAN PLATELET VOLUME 9.5 fL (7.4-11.4); MONOCYTES # (AUTO) 0.5 10^3/uL (0.0-1.0); MONOCYTES % (AUTO) 6.9 %; NEUTROPHILS # (AUTO) 4.4 10^3/uL (1.5-6.6); NEUTROPHILS % (AUTO) 65.3 %; PLT - PLATELET COUNT 266 10^3/uL (130-450); WHITE BLOOD COUNT 6.7 x10^3/uL (4.8-10.8)
[2019-12-15 09:57] LABS: ALBUMIN 4.6 g/dL (3.2-5.5); ALBUMIN/GLOBULIN RATIO 1.6 (1.0-2.2); BILIRUBIN,TOTAL 0.6 mg/dL (0.2-1.0); CALCIUM 9.3 mg/dL (8.5-10.3); TOTAL PROTEIN 7.4 g/dL (6.7-8.2)
[2019-12-15 09:57] LABS: BILIRUBIN,URINE NEGATIVE (NEGATIVE); GLUCOSE, URINE (UA) NEGATIVE (NEGATIVE); KETONES,URINE (UA) NEGATIVE (NEGATIVE); LEUKOCYTE ESTERASE, URINE NEGATIVE (NEGATIVE); NITRITE,URINE NEGATIVE (NEGATIVE); OCCULT BLOOD,URINE NEGATIVE (NEGATIVE); PH,URINE 6.5 PH (5.0-7.5); PROTEIN,URINE NEGATIVE (NEGATIVE); UROBILINOGEN,URINE 0.2 (NORMAL) E.U./dL (NORMAL)
[2019-12-15 09:58] LABS: CLARITY,URINE CLEAR (CLEAR)
[2019-12-15] MEDS ORDERED: ONDANSETRON ODT 4 MG TABLET TL STA (10:04)
[2019-12-15] MEDS ORDERED: KETOROLAC 30 MG/ML VIAL IM STA (10:04)
--- NOTE | 2019-12-15 11:19 | Ultrasound Report ---
Reason: RUQ pain since yesterday Procedure Date: 12/15/2019 Accession Number: [id number] / [id number] Procedure: US - Abdomen Limited CPT Code: Final Report FULL RESULT: EXAM: ABDOMEN ULTRASOUND LIMITED, RUQ EXAM DATE: 12/15/2019 10:48 AM. CLINICAL HISTORY: RUQ pain since yesterday. COMPARISON: None. TECHNIQUE: Real-time scanning was performed with static images obtained. FINDINGS: Liver: Normal size and contour. Increased echogenicity suggests fatty infiltration. Right lobe 13.7 cm. Smooth capsule. No focal lesion identified. Main portal vein flow: Hepatopetal. Gallbladder: Unremarkable. No stones, gallbladder wall thickening, pericholecystic fluid, or convincing sonographic Morales's sign. Biliary System: Common bile duct measures 5.5 mm. No intrahepatic or extrahepatic ductal dilatation. Pancreas: Obscured by bowel gas. Right Kidney: 9.7 cm in length without hydronephrosis. Other: No RUQ free fluid. Nonspecific diffuse abdominal tenderness. IMPRESSION: 1. Consistent with mild hepatic steatosis. No focal liver lesion or cirrhotic morphology. 2. Unremarkable gallbladder. 3. No dilated bile ducts. 4. Nonspecific diffuse abdominal tenderness. RADIA
--- NOTE | 2019-12-15 12:59 | CT Report ---
Reason: right abd pain since yesterday Procedure Date: 12/15/2019 Accession Number: [id number] / [id number] Procedure: CT - Abdomen/Pelvis WO CPT Code: Final Report FULL RESULT: EXAM: CT ABDOMEN AND PELVIS EXAM DATE: 12/15/2019 12:09 PM. CLINICAL HISTORY: Right abd pain since yesterday. COMPARISONS: Right upper quadrant ultrasound today. TECHNIQUE: Routine helical CT imaging was performed through the abdomen and pelvis. IV contrast: No. Enteric contrast: No. Reconstructions: Coronal and sagittal. In accordance with CT protocol optimization, one or more of the following dose reduction techniques were utilized for this exam: automated exposure control, adjustment of mA and/or KV based on patient size, or use of iterative reconstructive technique. FINDINGS: Lung Bases: Mild dependent atelectasis or scarring. Left coronary calcification or stent. Liver: Normal size and contour without obviously suspicious lesion. Gallbladder/Bile Ducts: No calcified gallstones or dilated ducts. Spleen: No splenomegaly. Pancreas: Grossly unremarkable. Adrenal Glands: No nodule. Kidneys: No hydronephrosis or focal lesion identified. Peritoneal Cavity/Bowel: No intestinal dilatation or focal inflammatory process identified. Upper normal caliber appendix contains some hyperdense material and scattered intraluminal gas. No periappendiceal phlegmon. No free fluid, free air, or mesenteric adenopathy. A tiny fat-containing umbilical hernia. Retroperitoneum: No mass or adenopathy. Pelvic Organs: Unremarkable bladder and other pelvic organs. No abnormal fluid collection or pathologic adenopathy. Vasculature: No aneurysm. Calcified plaques in the common iliac arteries, right more than left. Bones: Mild spurring of the lumbar spine. IMPRESSION: 1. No focal inflammatory or obstructive process identified. Upper normal caliber appendix contains some hyperdense intraluminal material and intraluminal gas. No obvious acute appendicitis. 2. No free fluid or pathologic adenopathy. 3. Coronary calcifications and/or stents. RADIA
[2019-12-15 13:36] VITALS: BP 132/87
== END 2019-12-15 13:35 | disposition home or self-care (01) ==
LOC: ED 08:55
DX: R10.11 Right upper quadrant pain (principal); R10.13 Epigastric pain; I10 Essential (primary) hypertension; Z79.82 Long term (current) use of aspirin; Z87.891 Personal history of nicotine dependence
CPT/HCPCS: 36415; 74176; 76705; 80053; 81003; 83690; 85025; 96372; 99284; Q0162; 81001; 87086

== ENCOUNTER 2020-06-28 16:45 | Emergency (ER) | payer OTHER ==
--- NOTE | 2020-06-28 17:38 | XRAY Report ---
PROCEDURE: Chest 1 View X-Ray INDICATIONS: Chest Pain TECHNIQUE: One view of the chest was acquired. COMPARISON: Chest x-ray 05/26/2019 FINDINGS: Surgical changes and devices: None. Lungs and pleura: No pleural effusions or pneumothorax. Lungs are clear. Mediastinum: Mediastinal contours appear normal. Heart size is normal. Bones and chest wall: No suspicious bony lesions. Overlying soft tissues appear unremarkable. IMPRESSION: No acute pulmonary process. Reviewed by: Suha Virk MD on 06/28/2020 5:37 PM PDT Approved by: Suha Virk MD on 06/28/2020 5:37 PM PDT Station ID: [id number]
[2020-06-28 17:47] LABS: BASOPHILS # (AUTO) 0.1 10^3/uL (0.0-0.1); BASOPHILS % (AUTO) 0.8 %; EOSINOPHILS # (AUTO) 0.2 10^3/uL (0.0-0.7); EOSINOPHILS % (AUTO) 2.2 %; HGB - HEMOGLOBIN 15.4 g/dL (14.0-18.0); LYMPHOCYTES # (AUTO) 2.3 10^3/uL (1.5-3.5); LYMPHOCYTES % (AUTO) 29.1 %; MEAN CORPUSCULAR HEMOGLOBIN 34.1 pg (27.0-31.0); MEAN CORPUSCULAR HGB CONC 35.2 g/dL (32.0-36.0); MEAN CORPUSCULAR VOLUME 96.7 fL (80.0-94.0); MEAN PLATELET VOLUME 9.6 fL (7.4-11.4); MONOCYTES # (AUTO) 0.7 10^3/uL (0.0-1.0); MONOCYTES % (AUTO) 9.6 %; NEUTROPHILS # (AUTO) 4.5 10^3/uL (1.5-6.6); NEUTROPHILS % (AUTO) 57.9 %; PLT - PLATELET COUNT 263 10^3/uL (130-450); RED BLOOD COUNT 4.52 10^6/uL (4.70-6.10); RED CELL DISTRIBUTION WIDTH 11.6 % (12.0-15.0); WHITE BLOOD COUNT 7.7 x10^3/uL (4.8-10.8)
[2020-06-28 18:00] LABS: ALBUMIN 4.4 g/dL (3.2-5.5); ALBUMIN/GLOBULIN RATIO 1.3 (1.0-2.2); BILIRUBIN,TOTAL 0.5 mg/dL (0.2-1.0); CALCIUM 9.4 mg/dL (8.5-10.3); CREATININE 0.9 mg/dL (0.6-1.2); TOTAL PROTEIN 7.7 g/dL (6.7-8.2)
--- NOTE | 2020-06-28 18:25 | ED Physician Documentation ---
PD HPI CHEST PAIN - Stated complaint Stated Complaint: LT SIDED SHOCKING PX - Chief complaint Chief Complaint: Cardiac - History obtained from History obtained from: Patient - History of Present Illness Timing - onset: Yesterday Timing - onset during: Rest. No: Light activity, Exertion Timing - duration: Days Timing - details: Now resolved, Intermittant (lasting few seconds at a time. Not associated with breathing, position, eating.) Quality: Aching, Sharp, Pain Location: Left chest (lateral to breast area.) Radiation: No: Jaw, Neck, Back Worsened by: No: Exertion, Inspiration, Eating Associated symptoms: No: Shortness of air, Feeling faint / dizzy, Palpitations, Cough Similar symptoms before: Has not had sx before Review of Systems Constitutional: denies: Fever, Chills Nose: denies: Rhinorrhea / runny nose, Congestion Throat: denies: Sore throat Respiratory: denies: Cough GI: denies: Abdominal Pain, Nausea, Vomiting, Constipation, Diarrhea Skin: denies: Rash, Lesions PD PAST MEDICAL HISTORY - Past Medical History Cardiovascular: Hypertension, High cholesterol Respiratory: Sleep apnea, CPAP use, Other Neuro: None Endocrine/Autoimmune: None GI: GERD : Incontinence HEENT: Other Psych: Depression Musculoskeletal: Chronic back pain Derm: Eczema - Past Surgical History Past Surgical History: No Cardiovascular: Coronary stent - Present Medications Home Medications: Ambulatory Orders Medication Instructions Recorded Confirmed Meloxicam [Mobic] 15 mg PO DAILY PRN 09/11/14 05/26/19 Sildenafil Citrate [Viagra] 100 mg PO DAILY PRN 09/11/14 05/26/19 Tamsulosin [Flomax] 0.4 mg PO QPM 09/11/14 05/26/19 Trazodone HCl 50 mg PO QPM PRN 09/11/14 05/26/19 Acetaminophen 650 mg PO BID PRN 05/20/19 05/26/19 Cholecalciferol (Vitamin D3) 2,000 units PO DAILY 05/20/19 05/26/19 [Vitamin D3] Cyclobenzaprine [Flexeril] 10 mg PO Q8H PRN 05/20/19 05/26/19 Glucos Sul 2Kcl/MSM/Chond/C/Mn 1 tab PO DAILY 05/20/19 05/26/19 [Glucosamine Chondroitin Cap] Aspirin [Aspirin EC] 81 mg PO DAILY 05/26/19 05/26/19 Atorvastatin Calcium 80 mg PO QPM 05/26/19 05/26/19 Metoprolol Succinate 25 mg PO DAILY 05/26/19 05/26/19 Ticagrelor [Brilinta] 90 mg PO BID 05/26/19 05/26/19 Docusate Sodium 100 mg PO DAILY #15 capsule 12/15/19 Tramadol HCl 50 mg PO Q6H PRN #15 tablet 12/15/19 dexAMETHasone [Decadron] 4 mg PO DAILY #5 tablet 06/28/20 - Allergies Allergies/Adverse Reactions: Allergies Allergy/AdvReac Type Severity Reaction Status Date / Time latex Allergy Intermediate Itching Verified 06/28/20 17:03 acetaminophen Allergy Itching Verified 06/28/20 17:03 [From Tylenol-Codeine #3] codeine Allergy Itching Verified 06/28/20 17:03 [From Tylenol-Codeine #3] hydromorphone HCl * Allergy Itching Verified 06/28/20 17:03 [From Dilaudid] oxycodone [Oxycodone] Allergy Unknown Verified 06/28/20 17:03 - Social History Does the pt smoke?: No Smoking Status: Never smoker Does the pt drink ETOH?: Yes Does the pt have substance abuse?: No - Immunizations Immunizations are current?: Yes - POLST Patient has POLST: No POLST Status: Full Code PD ED PE NORMAL - Vitals Vital signs reviewed: Yes - General General: Alert and oriented X 3, No acute distress, Well developed/nourished - HEENT HEENT: Pharynx benign - Neck Neck: Supple, no meningeal sign, No adenopathy - Cardiac Cardiac: RRR, No murmur - Respiratory Respiratory: Clear bilaterally, Other (no chestwall tenderness) - Abdomen Abdomen: Soft, Non tender - Back Back: No CVA TTP - Derm Derm: Normal color, Warm and dry, No rash - Extremities Extremities: Normal ROM s pain, No edema, No calf tenderness / cord - Neuro Neuro: Alert and oriented X 3, No motor deficit, Normal speech Results - Vitals Vitals: Vital Signs - 24 hr 06/28/20 06/28/20 06/28/20 17:04 18:10 18:30 Temperature 37 C Heart Rate 76 74 65 Respiratory 18 18 17 Rate Blood Pressure 149/94 H 155/106 H 153/109 H O2 Saturation 98 99 100 06/28/20 19:00 Temperature Heart Rate 80 Respiratory 18 Rate Blood Pressure 155/110 H O2 Saturation 100 Oxygen O2 Source Room air - EKG (time done) 17:13 Rate: Rate (enter#) (70) Rhythm: NSR [place]: Normal Intervals: Normal LA QRS: Normal Ischemia: Normal ST segments. No: ST elevation c/w ischemia, ST depression - Labs Labs: Laboratory Tests 06/28/20 06/28/20 06/28/20 17:40 17:40 17:40 WBC 7.7 RBC 4.52 L Hgb 15.4 Hct 43.7 MCV 96.7 H MCH 34.1 H MCHC 35.2 RDW 11.6 L Plt Count 263 MPV 9.6 Neut # (Auto) 4.5 Lymph # (Auto) 2.3 [place] # (Auto) 0.7 Eos # (Auto) 0.2 Baso # (Auto) 0.1 Absolute Nucleated RBC 0.00 Nucleated RBC % 0.0 Sodium 138 Potassium 4.7 Chloride 102 Carbon Dioxide 28 Anion Gap 8.0 BUN 18 Creatinine 0.9 Estimated GFR (MDRD) 89 Glucose 94 Calcium 9.4 Total Bilirubin 0.5 AST 24 ALT 34 Alkaline Phosphatase 70 Troponin I High Sens 3.9 Total Protein 7.7 Albumin 4.4 Globulin 3.3 Albumin/Globulin Ratio 1.3 Lipase 47 - Rads (name of study) chest xray Radiology: Prelim report reviewed (no acute process), See rad report PD MEDICAL DECISION MAKING - ED course Complexity details: considered differential (atypical intermittent sharp pains, does not sound cardiovascular. ), d/w patient Departure - Departure Disposition: 01 Home, Self Care Clinical Impression: Chest pain, musculoskeletal Clinical Impression: (Ruled Out): Myocardial infarction Condition: Stable Record reviewed to determine appropriate education?: Yes Instructions: ED Chest Pain NonCardiac Follow-Up: Tierra Benton MD [Primary Care Provider] - Jadiel Lakhani MD [Physician No Access] - Prescriptions: dexAMETHasone [Decadron] 4 mg PO DAILY #5 tablet Comments: No signs of heart attack or heart or lung cause for the pains on your test today. Presume musculoskeletal pain. We can use some Decadron steroid anti-inflammatory so as to not interfere with your antiplatelet medicines. Take that daily for 5 days. Add Tylenol every 4-6 hours if needed for pains. Recheck if not improved over the next few days and return if worsening. Discharge Date/Time: 06/28/20 19:10
[2020-06-28] MEDS ORDERED: KETOROLAC 30 MG/ML VIAL IVP STA (18:41)
[2020-06-28] MEDS ORDERED: ACETAMINOPHEN 325 MG TABLET PO STA (18:41)
[2020-06-28 19:10] VITALS: BP 155/110
== END 2020-06-28 19:10 | disposition home or self-care (01) ==
LOC: ED 16:45
DX: R07.89 Other chest pain (principal); Z95.5 Presence of coronary angioplasty implant and graft; I10 Essential (primary) hypertension; Z79.82 Long term (current) use of aspirin
CPT/HCPCS: 36415; 71045; 80053; 83690; 84484; 85025; 93005; 96374; 99284; A9270

== ENCOUNTER 2021-04-05 11:57 | Emergency (ER) | payer OTHER ==
[2021-04-05 12:23] LABS: BASOPHILS # (AUTO) 0.1 10^3/uL (0.0-0.1); EOSINOPHILS # (AUTO) 0.2 10^3/uL (0.0-0.7); EOSINOPHILS % (AUTO) 2.3 %; HCT - HEMATOCRIT 45.7 % (42.0-52.0); HGB - HEMOGLOBIN 15.9 g/dL (14.0-18.0); LYMPHOCYTES # (AUTO) 2.6 10^3/uL (1.5-3.5); MEAN CORPUSCULAR HEMOGLOBIN 33.1 pg (27.0-31.0); MEAN CORPUSCULAR HGB CONC 34.8 g/dL (32.0-36.0); MEAN CORPUSCULAR VOLUME 95.2 fL (80.0-94.0); MEAN PLATELET VOLUME 9.7 fL (7.4-11.4); MONOCYTES # (AUTO) 0.6 10^3/uL (0.0-1.0); MONOCYTES % (AUTO) 7.5 %; NEUTROPHILS # (AUTO) 4.6 10^3/uL (1.5-6.6); PLT - PLATELET COUNT 254 10^3/uL (130-450); RED CELL DISTRIBUTION WIDTH 11.9 % (12.0-15.0); WHITE BLOOD COUNT 8.2 x10^3/uL (4.8-10.8)
[2021-04-05 12:34] LABS: ALBUMIN/GLOBULIN RATIO 1.6 (1.0-2.2); BILIRUBIN,TOTAL 0.6 mg/dL (0.2-1.0); CALCIUM 9.9 mg/dL (8.5-10.3); CREATININE 0.9 mg/dL (0.6-1.2); POTASSIUM 3.9 mmol/L (3.5-5.0); TOTAL PROTEIN 8.1 g/dL (6.7-8.2)
--- NOTE | 2021-04-05 12:42 | XRAY Report ---
PROCEDURE: Chest 1 View X-Ray INDICATIONS: Chest pain TECHNIQUE: One view of the chest was acquired. COMPARISON: 06/28/2020 FINDINGS: Surgical changes and devices: None. Lungs and pleura: No pleural effusions or pneumothorax. Lungs are clear. Mediastinum: Mediastinal contours appear normal. Heart size is normal. Bones and chest wall: No suspicious bony lesions. Overlying soft tissues appear unremarkable. IMPRESSION: Chest without acute cardiopulmonary abnormalities. No focal consolidation. Reviewed by: Louis Andrews MD on 04/05/2021 12:41 PM PDT Approved by: Louis Andrews MD on 04/05/2021 12:41 PM PDT Station ID: [id number]
--- NOTE | 2021-04-05 13:02 | ED Physician Documentation ---
PD HPI CHEST PAIN - Stated complaint Stated Complaint: CHEST PX - Chief complaint Chief Complaint: Cardiac - History obtained from History obtained from: Patient - History of Present Illness Timing - onset: Yesterday Timing - onset during: Rest, Light activity, Other (did heavier yardwork and lifting 3-4 days ago (over the weekend) without symptoms nor onset then.) Timing - duration: Days (1) Timing - details: Gradual onset, Still present, Waxing and waning. No: Intermittant Quality: Tightness, Aching. No: Sharp Location: Left chest (pectoral area) Improved by: No: Rest Worsened by: Exertion (somewhat worse with activity). No: Inspiration, Eating, Movement, Palpation Associated symptoms: No: Shortness of air, Nausea, Feeling faint / dizzy, Palpitations Similar symptoms before: Has not had sx before Recently seen: Not recently seen Review of Systems Constitutional: denies: Fever, Chills Nose: denies: Rhinorrhea / runny nose, Congestion Throat: denies: Sore throat Cardiac: reports: Chest pain / pressure. denies: Palpitations, Pedal edema, Calf pain Respiratory: denies: Dyspnea, Cough, Wheezing GI: denies: Abdominal Pain, Nausea, Vomiting Skin: denies: Rash PD PAST MEDICAL HISTORY - Past Medical History Past Medical History: Yes Cardiovascular: Hypertension, High cholesterol, Coronary artery disease Respiratory: Sleep apnea, CPAP use Neuro: None Endocrine/Autoimmune: None GI: GERD : Incontinence HEENT: None Psych: Depression Musculoskeletal: Chronic back pain Derm: Eczema - Past Surgical History Past Surgical History: Yes Cardiovascular: Coronary stent - Present Medications Home Medications: Ambulatory Orders Medication Instructions Recorded Confirmed Meloxicam [Mobic] 15 mg PO DAILY PRN 09/11/14 05/26/19 Sildenafil Citrate [Viagra] 100 mg PO DAILY PRN 09/11/14 05/26/19 Tamsulosin [Flomax] 0.4 mg PO QPM 09/11/14 05/26/19 Trazodone HCl 50 mg PO QPM PRN 09/11/14 05/26/19 Acetaminophen 650 mg PO BID PRN 05/20/19 05/26/19 Cholecalciferol (Vitamin D3) 2,000 units PO DAILY 05/20/19 05/26/19 [Vitamin D3] Cyclobenzaprine [Flexeril] 10 mg PO Q8H PRN 05/20/19 05/26/19 Glucos Sul 2Kcl/MSM/Chond/C/Mn 1 tab PO DAILY 05/20/19 05/26/19 [Glucosamine Chondroitin Cap] Aspirin [Aspirin EC] 81 mg PO DAILY 05/26/19 05/26/19 Atorvastatin Calcium 80 mg PO QPM 05/26/19 05/26/19 Metoprolol Succinate 25 mg PO DAILY 05/26/19 05/26/19 Ticagrelor [Brilinta] 90 mg PO BID 05/26/19 05/26/19 Docusate Sodium 100 mg PO DAILY #15 capsule 12/15/19 Tramadol HCl 50 mg PO Q6H PRN #15 tablet 12/15/19 dexAMETHasone [Decadron] 4 mg PO DAILY #5 tablet 06/28/20 - Allergies Allergies/Adverse Reactions: Allergies Allergy/AdvReac Type Severity Reaction Status Date / Time latex Allergy Intermediate Itching Verified 04/05/21 12:16 acetaminophen Allergy Itching Verified 04/05/21 12:16 [From Tylenol-Codeine #3] codeine Allergy Itching Verified 04/05/21 12:16 [From Tylenol-Codeine #3] hydromorphone HCl * Allergy Itching Verified 04/05/21 12:16 [From Dilaudid] oxycodone [Oxycodone] Allergy Unknown Verified 04/05/21 12:16 - Social History Does the pt smoke?: No Smoking Status: Former smoker Does the pt drink ETOH?: Yes Does the pt have substance abuse?: No - Immunizations Immunizations are current?: Yes - POLST Patient has POLST: No POLST Status: Full Code PD ED PE NORMAL - Vitals Vital signs reviewed: Yes - General General: Alert and oriented X 3, No acute distress, Well developed/nourished - Neck Neck: Supple, no meningeal sign, No adenopathy, No JVD - Cardiac Cardiac: RRR, No murmur - Respiratory Respiratory: Clear bilaterally, Other (no chestwall tenderness) - Abdomen Abdomen: Soft, Non tender - Derm Derm: Normal color, Warm and dry, No rash - Extremities Extremities: No tenderness to palpate, Normal ROM s pain, No edema, No calf tenderness / cord - Neuro Neuro: Alert and oriented X 3, No motor deficit, Normal speech Results - Vitals Vitals: Vital Signs - 24 hr 04/05/21 13:30 Temperature 36.9 C Heart Rate 58 L Respiratory 19 Rate Blood Pressure 143/104 H O2 Saturation 97 Oxygen O2 Source Room air - EKG (time done) 12:00 Rate: Rate (enter#) (66) Rhythm: NSR [place]: Normal Intervals: Normal LA QRS: Normal Ischemia: Normal ST segments Computer interpretation: Agree with computer - Labs Labs: Laboratory Tests 04/05/21 04/05/21 04/05/21 12:06 12:06 12:06 WBC 8.2 RBC 4.80 Hgb 15.9 Hct 45.7 MCV 95.2 H MCH 33.1 H MCHC 34.8 RDW 11.9 L Plt Count 254 MPV 9.7 Neut # (Auto) 4.6 Lymph # (Auto) 2.6 [place] # (Auto) 0.6 Eos # (Auto) 0.2 Baso # (Auto) 0.1 Absolute Nucleated RBC 0.00 Nucleated RBC % 0.0 Sodium 143 Potassium 3.9 Chloride 104 Carbon Dioxide 29 Anion Gap 10.0 BUN 15 Creatinine 0.9 Estimated GFR (MDRD) 89 Glucose 97 Calcium 9.9 Total Bilirubin 0.6 AST 27 ALT 49 Alkaline Phosphatase 78 Troponin I High Sens 3.7 Total Protein 8.1 Albumin 5.0 Globulin 3.1 Albumin/Globulin Ratio 1.6 Lipase 33 - Rads (name of study) chest xray Radiology: Prelim report reviewed, See rad report (no acute process) PD MEDICAL DECISION MAKING - ED course Complexity details: considered differential, d/w patient Departure - Departure Disposition: 01 Home, Self Care Clinical Impression: Chest discomfort Condition: Stable Record reviewed to determine appropriate education?: Yes Instructions: ED Chest Pain NonCardiac Follow-Up: KINZA MONTILLA MD [Primary Care Provider] - Comments: Your EKG, chest x-ray, blood tests including troponin are normal. No signs of heart attack, heart failure, pneumonia, collapsed lung, or other significant cause. I presume this is a muscular type pain. I would suggest using some anti-inflammatory such as ibuprofen or naproxen 2-3 times a day over the next few days with food. Add Tylenol if needed for discomfort. Recheck if not improved well over the next couple of days and recheck if worsening or other symptoms develop. Discharge Date/Time: 04/05/21 13:35
[2021-04-05] MEDS ORDERED: KETOROLAC 30 MG/ML VIAL IVP STA (13:16)
[2021-04-05 13:33] VITALS: BP 143/104
== END 2021-04-05 13:35 | disposition home or self-care (01) ==
LOC: ED 11:57
DX: R07.89 Other chest pain (principal); I25.10 Atherosclerotic heart disease of native coronary artery without angina pectoris; Z95.5 Presence of coronary angioplasty implant and graft; Z87.891 Personal history of nicotine dependence
CPT/HCPCS: 36415; 80053; 83690; 84484; 85025; 93005; 96374; 99284

== ENCOUNTER 2021-08-23 10:13 | Emergency (ER) | payer OTHER ==
--- NOTE | 2021-08-23 11:04 | XRAY Report ---
PROCEDURE: Chest 1 View X-Ray INDICATIONS: Chest pain TECHNIQUE: One view of the chest was acquired. COMPARISON: April 05, 2021 FINDINGS: SUPPORT DEVICES: None. LUNGS/PLEURA: No focal consolidation, pleural effusion or space-occupying pneumothorax. MEDIASTINUM: The cardiomediastinal silhouette is within normal limits. BONES/SOFT TISSUES: No acute abnormality. IMPRESSION: 1.No acute cardiopulmonary abnormality. Reviewed by: Shiva Sánchez MD on 08/23/2021 11:03 AM PDT Approved by: Shiva Sánchez MD on 08/23/2021 11:03 AM PDT Station ID: [id number]
[2021-08-23 11:13] LABS: BASOPHILS # (AUTO) 0.1 10^3/uL (0.0-0.1); BASOPHILS % (AUTO) 0.9 %; EOSINOPHILS # (AUTO) 0.2 10^3/uL (0.0-0.7); EOSINOPHILS % (AUTO) 2.9 %; HCT - HEMATOCRIT 44.6 % (42.0-52.0); HGB - HEMOGLOBIN 15.1 g/dL (14.0-18.0); LYMPHOCYTES # (AUTO) 2.3 10^3/uL (1.5-3.5); LYMPHOCYTES % (AUTO) 33.2 %; MEAN CORPUSCULAR HEMOGLOBIN 32.4 pg (27.0-31.0); MEAN CORPUSCULAR HGB CONC 33.9 g/dL (32.0-36.0); MEAN CORPUSCULAR VOLUME 95.7 fL (80.0-94.0); MEAN PLATELET VOLUME 9.6 fL (7.4-11.4); MONOCYTES # (AUTO) 0.4 10^3/uL (0.0-1.0); NEUTROPHILS # (AUTO) 3.9 10^3/uL (1.5-6.6); NEUTROPHILS % (AUTO) 56.9 %; PLT - PLATELET COUNT 266 10^3/uL (130-450); RED BLOOD COUNT 4.66 10^6/uL (4.70-6.10); RED CELL DISTRIBUTION WIDTH 11.8 % (12.0-15.0); WHITE BLOOD COUNT 6.8 x10^3/uL (4.8-10.8)
[2021-08-23 11:38] LABS: ALBUMIN 4.6 g/dL (3.2-5.5); ALBUMIN/GLOBULIN RATIO 1.3 (1.0-2.2); CALCIUM 9.4 mg/dL (8.5-10.3); CREATININE 0.9 mg/dL (0.6-1.2); POTASSIUM 3.8 mmol/L (3.5-5.0); TOTAL PROTEIN 8.2 g/dL (6.7-8.2)
[2021-08-23 12:08] VITALS: BP 151/114
[2021-08-23] MEDS ORDERED: ACETAMINOPHEN 325 MG TABLET PO STA (12:10)
--- NOTE | 2021-08-23 12:14 | ED Physician Documentation ---
History of Present Illness - Stated complaint Stated Complaint: CHEST PX/HIGH BLOOD PRESSURE - Chief complaint Chief Complaint: Cardiac - History obtained from History obtained from: Patient - Additonal information Additional information: Patient comes emergency department chief complaint of headache and high blood pressure since getting his Moderna booster 5 days ago. Patient states that he has a history of high blood pressure and is on metoprolol on a daily basis, he thinks at 25 mg. Patient states that he has had some mild chest pressure and a dull headache that extends into his neck. No fevers or chills. No focal neurologic deficits. Patient states that he has not had a cough or shortness of breath. He has a history of coronary artery disease and has had stenting, but denies any worsening chest pain other than the pressure lately. No dyspnea on exertion. Review of Systems Ten Systems: 10 systems reviewed and negative Constitutional: reports: Reviewed and negative Eyes: reports: Reviewed and negative Ears: reports: Reviewed and negative Nose: reports: Reviewed and negative Throat: reports: Reviewed and negative Cardiac: reports: Reviewed and negative Respiratory: reports: Reviewed and negative GI: reports: Reviewed and negative : reports: Reviewed and negative Skin: reports: Reviewed and negative Musculoskeletal: reports: Reviewed and negative Neurologic: reports: Headache Psychiatric: reports: Reviewed and negative Endocrine: reports: Reviewed and negative Immunocompromised: reports: Reviewed and negative PD PAST MEDICAL HISTORY - Past Medical History Past Medical History: Yes Cardiovascular: Hypertension, High cholesterol, Coronary artery disease Respiratory: Sleep apnea, CPAP use Neuro: None Endocrine/Autoimmune: None GI: GERD : Incontinence HEENT: None Psych: Depression Musculoskeletal: Chronic back pain Derm: Eczema - Past Surgical History Past Surgical History: Yes Cardiovascular: Coronary stent, Angioplasty - Present Medications Home Medications: Ambulatory Orders Medication Instructions Recorded Confirmed Sildenafil Citrate [Viagra] 100 mg PO DAILY PRN 09/11/14 05/26/19 Tamsulosin [Flomax] 0.4 mg PO QPM 09/11/14 05/26/19 Trazodone HCl 50 mg PO QPM PRN 09/11/14 05/26/19 Acetaminophen 650 mg PO BID PRN 05/20/19 05/26/19 Cholecalciferol (Vitamin D3) 2,000 units PO DAILY 05/20/19 05/26/19 [Vitamin D3] Glucos Sul 2Kcl/MSM/Chond/C/Mn 1 tab PO DAILY 05/20/19 05/26/19 [Glucosamine Chondroitin Cap] Aspirin [Aspirin EC] 81 mg PO DAILY 05/26/19 05/26/19 Atorvastatin Calcium 80 mg PO QPM 05/26/19 05/26/19 Metoprolol Succinate 25 mg PO DAILY 05/26/19 05/26/19 Metoprolol Tartrate [Lopressor] 25 mg PO BID #120 tablet 08/23/21 - Allergies Allergies/Adverse Reactions: Allergies Allergy/AdvReac Type Severity Reaction Status Date / Time latex Allergy Intermediate Itching Verified 08/23/21 10:28 acetaminophen Allergy Itching Verified 08/23/21 10:28 [From Tylenol-Codeine #3] codeine Allergy Itching Verified 08/23/21 10:28 [From Tylenol-Codeine #3] hydromorphone HCl * Allergy Itching Verified 08/23/21 10:28 [From Dilaudid] oxycodone [Oxycodone] Allergy Unknown Verified 08/23/21 10:28 - Social History Does the pt smoke?: No Smoking Status: Never smoker Does the pt drink ETOH?: No Does the pt have substance abuse?: No - Immunizations Immunizations are current?: Yes - POLST Patient has POLST: No POLST Status: Full Code PD ED PE NORMAL - Vitals Vital signs reviewed: Yes - General General: Alert and oriented X 3, No acute distress, Well developed/nourished - HEENT HEENT: Atraumatic, PERRL, EOMI, Moist mucous membranes - Neck Neck: Supple, no meningeal sign - Cardiac Cardiac: RRR, No murmur, Strong equal pulses - Respiratory Respiratory: No respiratory distress, Clear bilaterally - Abdomen Abdomen: Soft, Non tender, Non distended - Derm Derm: Normal color, Warm and dry, No rash - Extremities Extremities: No deformity, No edema, No calf tenderness / cord - Neuro Neuro: Alert and oriented X 3, fitness and wellness coordinator 2-12 intact, Normal speech - Psych Psych: Normal mood, Normal affect Results - Vitals Vitals: Oxygen O2 Source Room air - Labs Labs: Laboratory Tests 08/23/21 08/23/21 08/23/21 10:55 10:55 10:55 WBC 6.8 RBC 4.66 L Hgb 15.1 Hct 44.6 MCV 95.7 H MCH 32.4 H MCHC 33.9 RDW 11.8 L Plt Count 266 MPV 9.6 Neut # (Auto) 3.9 Lymph # (Auto) 2.3 [place] # (Auto) 0.4 Eos # (Auto) 0.2 Baso # (Auto) 0.1 Absolute Nucleated RBC 0.00 Nucleated RBC % 0.0 Sodium 138 Potassium 3.8 Chloride 101 Carbon Dioxide 28 Anion Gap 9.0 BUN 14 Creatinine 0.9 Estimated GFR (MDRD) 89 Glucose 94 Calcium 9.4 Total Bilirubin 1.0 AST 30 ALT 51 Alkaline Phosphatase 89 Troponin I High Sens 4.2 Total Protein 8.2 Albumin 4.6 Globulin 3.6 Albumin/Globulin Ratio 1.3 Lipase 36 PD MEDICAL DECISION MAKING - ED course Complexity details: reviewed results, re-evaluated patient, considered differential, d/w patient ED course: Pt was stable and well-appearing in the ED. No signs/sx of hypertensive emergency. Labs and EKG unremarkable. We have discussed increasing pt's metoprolol dose when his BP is high. He will be seeing his doctor in a couple of weeks, and can re-evaluate his set dosing at that time. We have discussed the usual indications for return. Departure - Departure Disposition: Home, Self Care Clinical Impression: Headache Qualifiers: Headache type: tension-type Headache chronicity pattern: acute headache Intractability: not intractable Qualified Code(s): G44.209 - Tension-type headache, unspecified, not intractable Vaccine reaction Qualifiers: Encounter type: initial encounter Qualified Code(s): T50.Z95A - Adverse effect of other vaccines and biological substances, initial encounter Hypertension Qualifiers: Hypertension type: unspecified Qualified Code(s): I10 - Essential (primary) hypertension Condition: Stable Instructions: ED Headache Tension Prescriptions: Metoprolol Tartrate [Lopressor] 25 mg PO BID #120 tablet Comments: Your labs, EKG, and chest x-ray all look good. It may be that your blood pressure is temporarily elevated because you do not feel well. Most likely, this will improve when she is feeling better. For the time being, you may take an extra dose of your metoprolol if you are blood pressure is running high, say greater than 150/100. If this is still happening when you see your doctor in the middle of the month, you will need to talk about a more permanent plan to address your blood pressure. The rest of your symptoms are consistent with your body's reaction to the vaccine, and should resolve as the body's reaction dies down. You may use ibuprofen and/or Tylenol as needed for your headaches. Discharge Date/Time: 08/23/21 12:32
== END 2021-08-23 12:32 | disposition home or self-care (01) ==
LOC: ED 10:13
DX: G44.209 Tension-type headache, unspecified, not intractable (principal); I10 Essential (primary) hypertension; T50.Z95A Adverse effect of other vaccines and biological substances, initial encounter
CPT/HCPCS: 36415; 71045; 80053; 83690; 84484; 85025; 93005; 99284; A9270

== ENCOUNTER 2021-10-22 12:49 | Emergency (ER) | payer OTHER ==
[2021-10-22 13:22] LABS: BASOPHILS # (AUTO) 0.1 10^3/uL (0.0-0.1); BASOPHILS % (AUTO) 0.7 %; EOSINOPHILS # (AUTO) 0.1 10^3/uL (0.0-0.7); EOSINOPHILS % (AUTO) 0.8 %; HCT - HEMATOCRIT 43.8 % (42.0-52.0); LYMPHOCYTES # (AUTO) 1.8 10^3/uL (1.5-3.5); LYMPHOCYTES % (AUTO) 25.8 %; MEAN CORPUSCULAR HEMOGLOBIN 32.9 pg (27.0-31.0); MEAN CORPUSCULAR HGB CONC 34.2 g/dL (32.0-36.0); MEAN CORPUSCULAR VOLUME 96.1 fL (80.0-94.0); MEAN PLATELET VOLUME 9.9 fL (7.4-11.4); MONOCYTES # (AUTO) 0.5 10^3/uL (0.0-1.0); MONOCYTES % (AUTO) 7.6 %; NEUTROPHILS # (AUTO) 4.6 10^3/uL (1.5-6.6); PLT - PLATELET COUNT 239 10^3/uL (130-450); RED BLOOD COUNT 4.56 10^6/uL (4.70-6.10); RED CELL DISTRIBUTION WIDTH 11.9 % (12.0-15.0); WHITE BLOOD COUNT 7.1 x10^3/uL (4.8-10.8)
[2021-10-22 13:28] LABS: INR 1.1 (0.8-1.2)
[2021-10-22 13:35] LABS: PARTIAL THROMBOPLASTIN TIME 29.8 secs (24.9-33.3)
[2021-10-22 13:36] LABS: ALBUMIN 4.5 g/dL (3.2-5.5); ALBUMIN/GLOBULIN RATIO 1.5 (1.0-2.2); BILIRUBIN,TOTAL 0.6 mg/dL (0.2-1.0); CALCIUM 9.1 mg/dL (8.5-10.3); POTASSIUM 4.1 mmol/L (3.5-5.0); TOTAL PROTEIN 7.5 g/dL (6.7-8.2)
--- NOTE | 2021-10-22 13:51 | XRAY Report ---
PROCEDURE: Chest 1 View X-Ray INDICATIONS: Chest Pain TECHNIQUE: One view of the chest was acquired. COMPARISON: 08/23/2021 FINDINGS: Surgical changes and devices: None. Lungs and pleura: No pleural effusions or pneumothorax. Lungs are clear. Mediastinum: Mediastinal contours appear normal. Heart size is normal. Bones and chest wall: No suspicious bony lesions. Overlying soft tissues appear unremarkable. IMPRESSION: No acute process. Reviewed by: Bailee Leung MD on 10/22/2021 1:50 PM [facility] Approved by: Bailee Leung MD on 10/22/2021 1:50 PM [facility] Station ID: [id number]
[2021-10-22] MEDS ORDERED: DEXAMETHASONE 10 MG/ML VIAL IVP STA (13:52)
[2021-10-22] MEDS ORDERED: SODIUM CHLORIDE 0.9% 1,000 ML IV STA (13:52)
--- NOTE | 2021-10-22 14:01 | ED Physician Documentation ---
History of Present Illness - Stated complaint Stated Complaint: DIZZINESS - Chief complaint Chief Complaint: Neuro - History obtained from History obtained from: Patient - History of Present Illness Timing: Yesterday - Additonal information Additional information: 51-year-old male with known coronary artery disease has developed some dizziness or lightheaded nests over the last day. He states this began yesterday morning and today when he was in adventist he went into the adventist was standing for a while became lightheaded and dizzy. He denies any chest pain states that he remembers what that felt like when he had chest pain and issues with his heart and this feels nothing similar. He states when he turns his head he sometimes will get a bit dizzy and when he is up and standing he feels lightheaded. Review of Systems Constitutional: denies: Fever, Chills, Myalgias Eyes: denies: Decreased vision Ears: denies: Ear pain Nose: denies: Rhinorrhea / runny nose, Congestion Throat: denies: Sore throat Cardiac: denies: Chest pain / pressure, Palpitations Respiratory: denies: Dyspnea, Cough GI: denies: Abdominal Pain, Nausea, Vomiting, Constipation, Diarrhea : denies: Dysuria, Frequency Skin: denies: Rash Musculoskeletal: denies: Neck pain, Back pain, Extremity pain Neurologic: reports: Other (dizziness and lightheadedness). denies: Generalized weakness, Focal weakness, Numbness PD PAST MEDICAL HISTORY - Past Medical History Cardiovascular: Hypertension, High cholesterol, Coronary artery disease Respiratory: Sleep apnea, CPAP use Neuro: None Endocrine/Autoimmune: None GI: GERD : Incontinence HEENT: None Psych: Depression Musculoskeletal: Chronic back pain Derm: Eczema - Past Surgical History Past Surgical History: Yes Cardiovascular: Coronary stent, Angioplasty - Present Medications Home Medications: Ambulatory Orders Medication Instructions Recorded Confirmed Sildenafil Citrate [Viagra] 100 mg PO DAILY PRN 09/11/14 05/26/19 Tamsulosin [Flomax] 0.4 mg PO QPM 09/11/14 05/26/19 Trazodone HCl 50 mg PO QPM PRN 09/11/14 05/26/19 Acetaminophen 650 mg PO BID PRN 05/20/19 05/26/19 Cholecalciferol (Vitamin D3) 2,000 units PO DAILY 05/20/19 05/26/19 [Vitamin D3] Glucos Sul 2Kcl/MSM/Chond/C/Mn 1 tab PO DAILY 05/20/19 05/26/19 [Glucosamine Chondroitin Cap] Aspirin [Aspirin EC] 81 mg PO DAILY 05/26/19 05/26/19 Atorvastatin Calcium 80 mg PO QPM 05/26/19 05/26/19 Metoprolol Succinate 25 mg PO DAILY 05/26/19 05/26/19 Metoprolol Tartrate [Lopressor] 25 mg PO BID #120 tablet 08/23/21 Amox/Clav 875/125 [Augmentin] 1 each PO Q12H #20 tablet 10/22/21 - Allergies Allergies/Adverse Reactions: Allergies Allergy/AdvReac Type Severity Reaction Status Date / Time latex Allergy Intermediate Itching Verified 10/22/21 13:02 acetaminophen Allergy Itching Verified 10/22/21 13:02 [From Tylenol-Codeine #3] codeine Allergy Itching Verified 10/22/21 13:02 [From Tylenol-Codeine #3] hydromorphone HCl * Allergy Itching Verified 10/22/21 13:02 [From Dilaudid] oxycodone [Oxycodone] Allergy Unknown Verified 10/22/21 13:02 - Social History Does the pt smoke?: No Smoking Status: Never smoker Does the pt drink ETOH?: No Does the pt have substance abuse?: No - Immunizations Immunizations are current?: Yes - POLST Patient has POLST: No POLST Status: Full Code PD ED PE NORMAL - Vitals Vital signs reviewed: Yes (hypertensive) - General General: Alert and oriented X 3, No acute distress, Well developed/nourished - HEENT HEENT: Atraumatic, PERRL, EOMI, Other (2 beats of nystagmus to the right and one to the left. R TM is inflamed in the attic. left is clear) - Neck Neck: Supple, no meningeal sign, No bony TTP - Cardiac Cardiac: RRR, No murmur - Respiratory Respiratory: No respiratory distress, Clear bilaterally - Abdomen Abdomen: Soft, Non tender - Back Back: No CVA TTP, No spinal TTP - Derm Derm: Normal color, Warm and dry, No rash - Extremities Extremities: No deformity, No edema - Neuro Neuro: Alert and oriented X 3, disease case manager 2-12 intact, No motor deficit, No sensory deficit, Normal speech Eye Opening: Spontaneous Motor: Obeys Commands Verbal: Oriented GCS Score: 15 - Psych Psych: Normal mood, Normal affect Results - Vitals Vitals: Vital Signs - 24 hr 10/22/21 12:57 Temperature 36.0 C L Heart Rate 86 Respiratory 18 Rate Blood Pressure 131/80 H O2 Saturation 99 Oxygen O2 Source Room air - EKG (time done) 1301 Rate: Rate (enter#) (68) Ischemia: Other (borderline T abnormality inferior leads) Compare to prior EKG: Unchanged from prior EKG (SPT 08-23-21 no sig change) Computer interpretation: Agree with computer - Labs Labs: Laboratory Tests 10/22/21 10/22/21 10/22/21 13:17 13:17 13:17 WBC 7.1 RBC 4.56 L Hgb 15.0 Hct 43.8 MCV 96.1 H MCH 32.9 H MCHC 34.2 RDW 11.9 L Plt Count 239 MPV 9.9 Neut # (Auto) 4.6 Lymph # (Auto) 1.8 [place] # (Auto) 0.5 Eos # (Auto) 0.1 Baso # (Auto) 0.1 Absolute Nucleated RBC 0.00 Nucleated RBC % 0.0 PT 12.0 INR 1.1 APTT 29.8 Sodium 138 Potassium 4.1 Chloride 101 Carbon Dioxide 30 Anion Gap 7.0 BUN 23 H Creatinine 1.0 Estimated GFR (MDRD) 78 L Glucose 95 Calcium 9.1 Total Bilirubin 0.6 AST 22 ALT 31 Alkaline Phosphatase 70 Troponin I High Sens Total Protein 7.5 Albumin 4.5 Globulin 3.0 Albumin/Globulin Ratio 1.5 Lipase 34 10/22/21 13:17 WBC RBC Hgb Hct MCV MCH MCHC RDW Plt Count MPV Neut # (Auto) Lymph # (Auto) Amelia # (Auto) Eos # (Auto) Baso # (Auto) Absolute Nucleated RBC Nucleated RBC % PT INR APTT Sodium Potassium Chloride Carbon Dioxide Anion Gap BUN Creatinine Estimated GFR (MDRD) Glucose Calcium Total Bilirubin AST ALT Alkaline Phosphatase Troponin I High Sens 4.5 Total Protein Albumin Globulin Albumin/Globulin Ratio Lipase - Rads (name of study) chest Radiology: Prelim report reviewed (Impression: No acute process.), EMP read indepedently, See rad report Procedures - IVC sono (time) 1350 Bedside IVC sono: IVC measures (cm) (1.2), IVC collapsed c insp (cm) (complete), Dehydration (est 1 liter deficit) Departure - Departure Disposition: 01 Home, Self Care Clinical Impression: Dehydration determined by examination Otitis media Qualifiers: Otitis media type: suppurative Chronicity: acute Laterality: right Recurrence: not specified as recurrent Spontaneous tympanic membrane rupture: without spontaneous rupture Qualified Code(s): H66.001 - Acute suppurative otitis media without spontaneous rupture of ear drum, right ear Condition: Stable Instructions: ED Dehydration, ED Otitis Media Acute Adult Follow-Up: KINZA MONTILLA MD [Primary Care Provider] - Prescriptions: Amox/Clav 875/125 [Augmentin] 1 each PO Q12H #20 tablet Comments: Vimal today we found you were mildly dehydrated and there does appear to be inflammation to the right middle ear consistent with an infection. I have e- scribed a script for augmentin to [facility] in [place]. The expectation is improvement in dizziness over the next 2 days. Forms: Activity restrictions
[2021-10-22 15:07] VITALS: BP 118/82
== END 2021-10-22 15:07 | disposition home or self-care (01) ==
LOC: ED 12:49
DX: E86.0 Dehydration (principal); H66.001 Acute suppurative otitis media without spontaneous rupture of ear drum, right ear; R42 Dizziness and giddiness; I10 Essential (primary) hypertension; I25.10 Atherosclerotic heart disease of native coronary artery without angina pectoris; Z95.5 Presence of coronary angioplasty implant and graft; Z79.82 Long term (current) use of aspirin
CPT/HCPCS: 36415; 80053; 83690; 84484; 85025; 85610; 85730; 93005; 96374; 99284

== ENCOUNTER 2022-05-09 13:04 | Emergency (ER) | payer OTHER ==
[2022-05-09 13:59] LABS: BASOPHILS # (AUTO) 0.1 10^3/uL (0.0-0.1); BASOPHILS % (AUTO) 0.8 %; EOSINOPHILS # (AUTO) 0.1 10^3/uL (0.0-0.7); EOSINOPHILS % (AUTO) 1.1 %; HCT - HEMATOCRIT 42.1 % (42.0-52.0); HGB - HEMOGLOBIN 14.8 g/dL (14.0-18.0); LYMPHOCYTES # (AUTO) 1.8 10^3/uL (1.5-3.5); LYMPHOCYTES % (AUTO) 27.2 %; MEAN CORPUSCULAR HEMOGLOBIN 33.4 pg (27.0-31.0); MEAN CORPUSCULAR HGB CONC 35.2 g/dL (32.0-36.0); MEAN PLATELET VOLUME 9.6 fL (7.4-11.4); MONOCYTES # (AUTO) 0.4 10^3/uL (0.0-1.0); MONOCYTES % (AUTO) 6.1 %; NEUTROPHILS # (AUTO) 4.2 10^3/uL (1.5-6.6); NEUTROPHILS % (AUTO) 64.6 %; PLT - PLATELET COUNT 226 10^3/uL (130-450); RED BLOOD COUNT 4.43 10^6/uL (4.70-6.10); RED CELL DISTRIBUTION WIDTH 11.9 % (12.0-15.0); WHITE BLOOD COUNT 6.4 x10^3/uL (4.8-10.8)
[2022-05-09 14:12] VITALS: BP 131/90
--- NOTE | 2022-05-09 14:13 | CT Report ---
PROCEDURE: HEAD WO INDICATIONS: headache TECHNIQUE: Noncontrast 4.5 mm thick angled axial sections acquired from the foramen magnum to the vertex. For r adiation dose reduction, the following was used: automated exposure control, adjustment of mA and/or kV according to patient size. COMPARISON: None. FINDINGS: Image quality: Excellent. CSF spaces: Basal cisterns are patent. No extra-axial fluid collections. Ventricles are normal in size and shape. Brain: No midline shift. No intracranial masses or hemorrhage. Kirk-white matter interface is norm al. Skull and face: Calvarium and visualized facial bones are intact, without suspicious lesions. Sinuses: Visualized sinuses and mastoids are clear. IMPRESSION: CT head without acute intracranial abnormalities. No mass or mass effect. Reviewed by: Louis Andrews MD on 05/09/2022 2:12 PM PDT Approved by: Louis Andrews MD on 05/09/2022 2:12 PM PDT Station ID: [id number]
--- NOTE | 2022-05-09 14:14 | XRAY Report ---
PROCEDURE: Chest 1 View X-Ray INDICATIONS: Chest Pain TECHNIQUE: One view of the chest was acquired. COMPARISON: 10/22/2021 FINDINGS: Surgical changes and devices: None. Lungs and pleura: No pleural effusions or pneumothorax. Lungs are clear. Mediastinum: Mediastinal contours appear normal. Heart size is normal. Bones and chest wall: No suspicious bony lesions. Overlying soft tissues appear unremarkable. IMPRESSION: Chest without acute cardiopulmonary abnormalities. No focal airspace disease. Reviewed by: Louis Andrews MD on 05/09/2022 2:12 PM PDT Approved by: Louis Andrews MD on 05/09/2022 2:12 PM PDT Station ID: [id number]
[2022-05-09 14:16] LABS: ALBUMIN 4.1 g/dL (3.2-5.5); ALBUMIN/GLOBULIN RATIO 1.4 (1.0-2.2); BILIRUBIN,TOTAL 0.5 mg/dL (0.2-1.0); CALCIUM 8.9 mg/dL (8.5-10.3); CREATININE 0.8 mg/dL (0.6-1.2); POTASSIUM 3.8 mmol/L (3.5-5.0); TOTAL PROTEIN 7.1 g/dL (6.7-8.2)
--- NOTE | 2022-05-09 14:27 | ED Physician Documentation ---
History of Present Illness - Stated complaint Stated Complaint: WEAKNESS/HEADACHE - Chief complaint Chief Complaint: Cardiac - History obtained from History obtained from: Patient - History of Present Illness Timing: Today Pain level max: 9 Pain level now: 2 - Additonal information Additional information: Patient is a 51-year-old male who presents to the emergency department with near syncope today. He had been standing for a long time in a meeting in a warm room, felt lightheaded and dizzy. Sat down and symptoms resolved. He also states he had a headache last night approximately 9 out of 10. He states currently is a 2 out of 10. No fevers. No chills. No chest pain. No shortness of breath. Occasionally feels palpitations. Has not seen his doctor for the symptoms. This is happened to him several times in the past. No changes in his medications. Worse with standing, better with rest Review of Systems Ten Systems: 10 systems reviewed and negative Constitutional: denies: Fever, Chills Throat: denies: Sore throat Respiratory: denies: Dyspnea, Cough, Wheezing GI: denies: Abdominal Pain, Vomiting, Diarrhea Skin: denies: Rash Musculoskeletal: denies: Neck pain, Back pain Neurologic: denies: Headache PD PAST MEDICAL HISTORY - Past Medical History Cardiovascular: Hypertension, High cholesterol, Coronary artery disease Respiratory: Sleep apnea, CPAP use Neuro: None Endocrine/Autoimmune: None GI: GERD : Incontinence HEENT: None Psych: Depression Musculoskeletal: Chronic back pain Derm: Eczema - Past Surgical History Past Surgical History: Yes Cardiovascular: Coronary stent, Angioplasty - Present Medications Home Medications: Ambulatory Orders Medication Instructions Recorded Confirmed Sildenafil Citrate [Viagra] 100 mg PO DAILY PRN 09/11/14 05/09/22 Tamsulosin [Flomax] 0.4 mg PO QPM 09/11/14 05/09/22 Trazodone HCl 50 mg PO QPM PRN 09/11/14 05/09/22 Acetaminophen 650 mg PO BID PRN 05/20/19 05/09/22 Cholecalciferol (Vitamin D3) 2,000 units PO DAILY 05/20/19 05/09/22 [Vitamin D3] Glucos Sul 2Kcl/MSM/Chond/C/Mn 1 tab PO DAILY 05/20/19 05/09/22 [Glucosamine Chondroitin Cap] Aspirin [Aspirin EC] 81 mg PO DAILY 05/26/19 05/09/22 Atorvastatin Calcium 80 mg PO QPM 05/26/19 05/09/22 Metoprolol Succinate 25 mg PO DAILY 05/26/19 05/09/22 - Allergies Allergies/Adverse Reactions: Allergies Allergy/AdvReac Type Severity Reaction Status Date / Time latex Allergy Intermediate Itching Verified 05/09/22 13:20 acetaminophen Allergy Itching Verified 05/09/22 13:20 [From Tylenol-Codeine #3] codeine Allergy Itching Verified 05/09/22 13:20 [From Tylenol-Codeine #3] hydromorphone HCl * Allergy Itching Verified 05/09/22 13:20 [From Dilaudid] oxycodone [Oxycodone] Allergy Unknown Verified 05/09/22 13:20 - Social History Does the pt smoke?: No Smoking Status: Never smoker Does the pt drink ETOH?: No Does the pt have substance abuse?: No - Immunizations Immunizations are current?: Yes - POLST Patient has POLST: No POLST Status: Full Code PD ED PE NORMAL - Vitals Vital signs reviewed: Yes - General General: Alert and oriented X 3, No acute distress - HEENT HEENT: PERRL, Moist mucous membranes - Neck Neck: Supple, no meningeal sign - Cardiac Cardiac: RRR, Strong equal pulses - Respiratory Respiratory: No respiratory distress, Clear bilaterally - Abdomen Abdomen: Soft, Non tender, Non distended - Back Back: No spinal TTP - Derm Derm: Warm and dry - Extremities Extremities: No edema, No calf tenderness / cord - Neuro Neuro: Alert and oriented X 3, 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, No motor deficit, No sensory deficit, Normal speech Eye Opening: Spontaneous Motor: Obeys Commands Verbal: Oriented GCS Score: 15 - Psych Psych: Normal mood, Normal affect Results - Vitals Vitals: Vital Signs - 24 hr 05/09/22 05/09/22 13:14 14:11 Temperature 36.0 C L Heart Rate 69 69 Respiratory 24 20 Rate Blood Pressure 119/83 H 131/90 H O2 Saturation 98 98 Oxygen O2 Source Room air - EKG (time done) 1332 Rate: Rate (enter#) (67) Rhythm: NSR [place]: Normal Intervals: Normal [place] QRS: Normal Ischemia: Normal ST segments - Labs Labs: Laboratory Tests 05/09/22 05/09/22 05/09/22 13:35 13:35 13:35 WBC 6.4 RBC 4.43 L Hgb 14.8 Hct 42.1 MCV 95.0 H MCH 33.4 H MCHC 35.2 RDW 11.9 L Plt Count 226 MPV 9.6 Neut # (Auto) 4.2 Lymph # (Auto) 1.8 [place] # (Auto) 0.4 Eos # (Auto) 0.1 Baso # (Auto) 0.1 Absolute Nucleated RBC 0.00 Nucleated RBC % 0.0 Sodium 137 Potassium 3.8 Chloride 103 Carbon Dioxide 27 Anion Gap 7.0 BUN 12 Creatinine 0.8 Estimated GFR (MDRD) 101 Glucose 131 H Calcium 8.9 Total Bilirubin 0.5 AST 19 ALT 26 Alkaline Phosphatase 64 Troponin I High Sens 4.0 Total Protein 7.1 Albumin 4.1 Globulin 3.0 Albumin/Globulin Ratio 1.4 Lipase 48 - Rads (name of study) cxr Radiology: Final report received, EMP read contemporaneously, See rad report (no acute abnormality) head CT Radiology: Final report received, EMP read contemporaneously, See rad report (no acute abnormality. ) PD MEDICAL DECISION MAKING - ED course Complexity details: reviewed results, re-evaluated patient, considered differential (No ST elevation [place], no aortic dissection, no PE, no tension pneumothorax, no aortic aneurysm), d/w patient, d/w family, d/w service delivery management consultant ED course: 51-year-old male with near syncope today. Asymptomatic in the emergency department. No acute findings on chest x-ray, EKG or laboratory testing. No arrhythmia on telemetry. He had a headache last night, head CT performed does not show any acute abnormalities. He stated that it was sudden onset. He does not want a lumbar puncture. Headache resolved in the emergency department. Patient will follow up with his doctor for further care. He will return if he worsens. No evidence of PE. Recommend that he have a Holter monitor with his doctor. Patient counseled regarding signs and symptoms for which I believe and urgent re-evaluation would be necessary. Patient with good understanding of and agreement to plan and is comfortable going home at this time This document was made in part using voice recognition software. While efforts are made to proofread this document, sound alike and grammatical errors may occur. Departure - Departure Disposition: Home, Self Care Clinical Impression: Near syncope Condition: Good Instructions: ED Near Syncope Unkn Follow-Up: KINZA MONTILLA MD [Primary Care Provider] - Comments: Please follow-up with your doctor for further care. You would likely benefit from a groundwater monitoring technician that can be worn to evaluate if you have any arrhythmias or irregular heartbeats. You should contact your doctors office tomorrow to schedule an appointment within the next week. Return if you worsen. Continue your current medications at home. Discharge Date/Time: 05/09/22 14:38
== END 2022-05-09 14:38 | disposition home or self-care (01) ==
LOC: ED 13:04
DX: R55 Syncope and collapse (principal); I10 Essential (primary) hypertension; I25.10 Atherosclerotic heart disease of native coronary artery without angina pectoris; E78.00 Pure hypercholesterolemia, unspecified; G47.30 Sleep apnea, unspecified; Z95.5 Presence of coronary angioplasty implant and graft
CPT/HCPCS: 36415; 80053; 83690; 84484; 85025; 93005; 99284

== ENCOUNTER 2023-02-06 09:13 | Emergency (ER) | payer OTHER ==
[2023-02-06 09:48] LABS: BASOPHILS # (AUTO) 0.1 10^3/uL (0.0-0.1); BASOPHILS % (AUTO) 0.9 %; EOSINOPHILS # (AUTO) 0.2 10^3/uL (0.0-0.7); HCT - HEMATOCRIT 44.9 % (42.0-52.0); HGB - HEMOGLOBIN 15.6 g/dL (14.0-18.0); LYMPHOCYTES % (AUTO) 29.4 %; MEAN CORPUSCULAR HEMOGLOBIN 32.9 pg (27.0-31.0); MEAN CORPUSCULAR HGB CONC 34.7 g/dL (32.0-36.0); MEAN CORPUSCULAR VOLUME 94.7 fL (80.0-94.0); MEAN PLATELET VOLUME 9.4 fL (7.4-11.4); MONOCYTES # (AUTO) 0.4 10^3/uL (0.0-1.0); MONOCYTES % (AUTO) 5.3 %; NEUTROPHILS # (AUTO) 4.3 10^3/uL (1.5-6.6); NEUTROPHILS % (AUTO) 61.1 %; PLT - PLATELET COUNT 253 10^3/uL (130-450); RED BLOOD COUNT 4.74 10^6/uL (4.70-6.10); RED CELL DISTRIBUTION WIDTH 11.6 % (12.0-15.0)
--- NOTE | 2023-02-06 09:49 | XRAY Report ---
PROCEDURE: Chest 1 View X-Ray INDICATIONS: Chest pain TECHNIQUE: One view of the chest was acquired. COMPARISON: 05/09/2022 FINDINGS: Surgical changes and devices: None. Lungs and pleura: No pleural effusions or pneumothorax. Lungs are clear. Mediastinum: Mediastinal contours appear normal. Heart size is normal. Bones and chest wall: No suspicious bony lesions. Overlying soft tissues appear unremarkable. IMPRESSION: No acute cardiopulmonary process. Reviewed by: Rowdy Amin MD on 02/06/2023 9:47 AM PDT Approved by: Rowdy Amin MD on 02/06/2023 9:47 AM PDT Station ID: [id number]
[2023-02-06 10:01] LABS: ALBUMIN 4.3 g/dL (3.2-5.5); ALBUMIN/GLOBULIN RATIO 1.3 (1.0-2.2); BILIRUBIN,TOTAL 0.8 mg/dL (0.2-1.0); CALCIUM 8.9 mg/dL (8.5-10.3); CREATININE 0.9 mg/dL (0.6-1.2); TOTAL PROTEIN 7.5 g/dL (6.7-8.2)
--- NOTE | 2023-02-06 10:20 | ED Physician Documentation ---
PD HPI CHEST PAIN - Stated complaint Stated Complaint: CHEST PX,SOA - Chief complaint Chief Complaint: Cardiac - History obtained from History obtained from: Patient - Additional information Additional information: The patient comes to the emergency department with chief complaint of episodes of shortness of breath and chest tightness that have been coming on and off, especially with walking. Patient has a history of coronary artery disease and several years ago had several stents placed. He follows regularly with his fur polisher and has an appointment coming up in February 27 but has just been con cerned about the ongoing symptoms. He also has palpitations intermittently and this is also been going on since his stent placement. The patient states the symptoms are slightly worse but not much worse than they have been all along. He states he gets the tightness a little more frequently and that he notices the shortness of breath a little more frequently as well. No other complaints at this time. He is currently symptom-free. No fever, chills, or cough. No swelling in his legs. No calf pain. No other complaints at this time. PD PAST MEDICAL HISTORY - Past Medical History Cardiovascular: Hypertension, High cholesterol, Coronary artery disease Respiratory: Sleep apnea, CPAP use Neuro: None Endocrine/Autoimmune: None GI: GERD : Incontinence HEENT: None Psych: Depression Musculoskeletal: Chronic back pain Derm: Eczema - Past Surgical History Past Surgical History: Yes Cardiovascular: Coronary stent, Angioplasty - Present Medications Home Medications: Ambulatory Orders Medication Instructions Recorded Confirmed Sildenafil Citrate [Viagra] 100 mg PO DAILY PRN 09/11/14 05/09/22 Tamsulosin [Flomax] 0.4 mg PO QPM 09/11/14 05/09/22 Trazodone HCl 50 mg PO QPM PRN 09/11/14 05/09/22 Acetaminophen 650 mg PO BID PRN 05/20/19 05/09/22 Cholecalciferol (Vitamin D3) 2,000 units PO DAILY 05/20/19 05/09/22 [Vitamin D3] Glucos Sul 2Kcl/MSM/Chond/C/Mn 1 tab PO DAILY 05/20/19 05/09/22 [Glucosamine Chondroitin Cap] Aspirin [Aspirin EC] 81 mg PO DAILY 05/26/19 05/09/22 Atorvastatin Calcium 80 mg PO QPM 05/26/19 05/09/22 Metoprolol Succinate 25 mg PO DAILY 05/26/19 05/09/22 Nitroglycerin [Nitrostat] 0.4 mg SL Q5MIN PRN #25 tablet 02/06/23 - Allergies Allergies/Adverse Reactions: Allergies Allergy/AdvReac Type Severity Reaction Status Date / Time latex Allergy Intermediate Itching Verified 05/09/22 13:20 acetaminophen Allergy Itching Verified 05/09/22 13:20 [From Tylenol-Codeine #3] codeine Allergy Itching Verified 05/09/22 13:20 [From Tylenol-Codeine #3] hydromorphone HCl * Allergy Itching Verified 05/09/22 13:20 [From Dilaudid] oxycodone [Oxycodone] Allergy Unknown Verified 05/09/22 13:20 - Social History Does the pt smoke?: No Smoking Status: Never smoker Does the pt drink ETOH?: No Does the pt have substance abuse?: No - Immunizations Immunizations are current?: Yes - POLST Patient has POLST: No POLST Status: Full Code PD ED PE NORMAL - Vitals Vital signs reviewed: Yes - General General: Alert and oriented X 3, No acute distress, Well developed/nourished - HEENT HEENT: Atraumatic, PERRL, EOMI, Moist mucous membranes - Neck Neck: Supple, no meningeal sign - Cardiac Cardiac: RRR, No murmur, Strong equal pulses - Respiratory Respiratory: No respiratory distress, Clear bilaterally - Abdomen Abdomen: Soft, Non tender, Non distended - Derm Derm: Normal color, Warm and dry, No rash - Extremities Extremities: No deformity, No edema, No calf tenderness / cord - Neuro Neuro: Alert and oriented X 3 - Psych Psych: Normal mood, Normal affect Results - Vitals Vitals: Vital Signs - 24 hr 02/06/23 02/06/23 02/06/23 09:17 09:51 09:55 Temperature 36.4 C L Heart Rate 83 80 80 Respiratory 18 17 20 Rate Blood Pressure 131/79 H 116/94 H 116/84 H O2 Saturation 98 97 98 02/06/23 02/06/23 02/06/23 10:26 10:37 11:11 Temperature Heart Rate 67 75 80 Respiratory 22 17 17 Rate Blood Pressure 115/50 L 124/91 H 130/91 H O2 Saturation 99 97 97 02/06/23 02/06/23 02/06/23 11:46 12:08 12:47 Temperature 37 C Heart Rate 66 89 73 Respiratory 18 17 18 Rate Blood Pressure 117/89 H 134/54 H 133/84 H O2 Saturation 98 100 99 Oxygen O2 Source Room air - EKG (time done) 0918 EKG releavant findings:: EKG personally interpreted by author of this note. Relevant findings are: Rate: Rate (enter#) (83) Rhythm: NSR [place]: Normal Intervals: Normal [place] QRS: Normal Ischemia: Normal ST segments, Non specific changes Compare to prior EKG: Old EKG unavailable Computer interpretation: Agree with computer - Labs Labs: Laboratory Tests 02/06/23 02/06/23 02/06/23 09:43 09:43 09:43 WBC 7.0 RBC 4.74 Hgb 15.6 Hct 44.9 MCV 94.7 H MCH 32.9 H MCHC 34.7 RDW 11.6 L Plt Count 253 MPV 9.4 Neut # (Auto) 4.3 Lymph # (Auto) 2.0 [place] # (Auto) 0.4 Eos # (Auto) 0.2 Baso # (Auto) 0.1 Absolute Nucleated RBC 0.00 Nucleated RBC % 0.0 Sodium 135 Potassium 4.0 Chloride 99 L Carbon Dioxide 27 Anion Gap 9.0 BUN 14 Creatinine 0.9 Estimated GFR (MDRD) 88 L Glucose 147 H Calcium 8.9 Total Bilirubin 0.8 AST 24 ALT 37 Alkaline Phosphatase 73 Troponin I High Sens 4.0 Total Protein 7.5 Albumin 4.3 Globulin 3.2 Albumin/Globulin Ratio 1.3 Lipase 45 02/06/23 02/06/23 10:58 11:41 WBC RBC Hgb Hct MCV MCH MCHC RDW Plt Count MPV Neut # (Auto) Lymph # (Auto) [place] # (Auto) Eos # (Auto) Baso # (Auto) Absolute Nucleated RBC Nucleated RBC % Sodium Potassium Chloride Carbon Dioxide Anion Gap BUN Creatinine Estimated GFR (MDRD) Glucose Calcium Total Bilirubin AST ALT Alkaline Phosphatase Troponin I High Sens 4.3 4.0 Total Protein Albumin Globulin Albumin/Globulin Ratio Lipase - Rads (name of study) CXR Relevant Findings:: Final report received, See rad report (neg) PD Medical Decision Making - ED course Complexity details: reviewed results, re-evaluated patient, considered differential, d/w patient ED course: The pt was worked up with ER abd panel, troponin and repeat, CBC, EKG, and CXR, all of which were ordered and reviewed by me. Both troponins were negative, as were the chest XR and EKG. The remainder of labs were unremarkable. The pt was stable for d/c home. He had no episodes of chest discomfort in the ED, but since he's been having them at home, I will prescribe nitroglycerine. He has an appt coming up with his fur polisher on February 27, and is advised to keep that. We have discussed the usual indications for return. Departure - Departure Disposition: Home, Self Care Clinical Impression: Angina pectoris, Palpitations, Dyspnea on exertion Condition: Stable Instructions: Angina Dc, ED Dyspnea Shortness of Breath Prescriptions: Nitroglycerin [Nitrostat] 0.4 mg SL Q5MIN PRN #25 tablet PRN Reason: Chest Pain Comments: Your work-up today looks good. Your EKG, chest x-ray, and labs are all reassuring, and your cardiac rate and rhythm are normal. It is good that your fur polisher has not felt that your ongoing symptoms are of concern at this point, but you should still plan to follow-up and update your fur polisher on how you are feeling. In the meantime, I have prescribed some nitroglycerin for you to take if you have a flareup of the chest pain. This should not be taken for palpitations alone. Prescription has been electronically transmitted to the [facility] pharmacy in [place]. If you develop severe chest pain associated with shortness of breath that does not go away, please return immediately to the emergency department. Discharge Date/Time: 02/06/23 12:49
[2023-02-06 12:48] VITALS: BP 133/84
== END 2023-02-06 12:49 | disposition home or self-care (01) ==
LOC: ED 09:13
DX: I20.9 Angina pectoris, unspecified (principal); R00.2 Palpitations; R06.09 Other forms of dyspnea
CPT/HCPCS: 36415; 80053; 83690; 84484; 85025; 93005; 99284

== ENCOUNTER 2023-11-13 16:46 | Emergency (ER) | payer OTHER ==
--- NOTE | 2023-11-13 17:13 | ED Physician Documentation ---
History of Present Illness - Stated complaint Stated Complaint: CP - Chief complaint Chief Complaint: Cardiac - History obtained from History obtained from: Patient - History of Present Illness Timing: Yesterday, How many hours ago (24) Pain level max: 4 Pain level now: 4 - Additonal information Additional information: 53-year-old male history of cardiac stents in 2018. States that he usually goes to the gym and walks for about 25 minutes on the treadmill. Last night after he was done at the gym he states he had nasal congestion, rhinorrhea and cough. Feels like his chest is "congested and tight". Took aspirin this morning. No change in symptoms. The pain does not radiate. Does not change with exertion. No fevers. No chills. No nausea, vomiting, diarrhea. The pain has been constant for 24 hours. Has not taken anything for the pain. No recent travel. No leg swelling. No immobilization. No history of blood clots. Review of Systems Constitutional: denies: Fever, Chills Nose: reports: Rhinorrhea / runny nose, Congestion Cardiac: reports: Chest pain / pressure (tightness and "congestion"). denies: Palpitations GI: denies: Abdominal Pain, Nausea, Vomiting, Diarrhea : denies: Dysuria, Frequency, Hesitancy Skin: denies: Rash Musculoskeletal: denies: Neck pain, Back pain Neurologic: denies: Headache PD PAST MEDICAL HISTORY - Past Medical History Past Medical History: Yes Cardiovascular: Hypertension, High cholesterol, Coronary artery disease Respiratory: Sleep apnea, CPAP use Neuro: None Endocrine/Autoimmune: None GI: GERD : Incontinence HEENT: None Psych: Depression Musculoskeletal: Chronic back pain Derm: Eczema - Past Surgical History Past Surgical History: Yes Cardiovascular: Coronary stent, Angioplasty - Present Medications Home Medications: Ambulatory Orders Medication Instructions Recorded Confirmed Sildenafil Citrate [Viagra] 100 mg PO DAILY PRN 09/11/14 11/13/23 Tamsulosin [Flomax] 0.4 mg PO QPM 09/11/14 11/13/23 Trazodone HCl 50 mg PO QPM PRN 09/11/14 11/13/23 Acetaminophen 650 mg PO BID PRN 05/20/19 11/13/23 Cholecalciferol (Vitamin D3) 2,000 units PO DAILY 05/20/19 11/13/23 [Vitamin D3] Glucos Sul 2Kcl/MSM/Chond/C/Mn 1 tab PO DAILY 05/20/19 11/13/23 [Glucosamine Chondroitin Cap] Aspirin [Aspirin EC] 81 mg PO DAILY 05/26/19 11/13/23 Atorvastatin Calcium 80 mg PO QPM 05/26/19 11/13/23 Metoprolol Succinate 25 mg PO DAILY 05/26/19 11/13/23 Nitroglycerin [Nitrostat] 0.4 mg SL Q5MIN PRN #25 tablet 02/06/23 11/13/23 - Allergies Allergies/Adverse Reactions: Allergies Allergy/AdvReac Type Severity Reaction Status Date / Time latex Allergy Intermediate Itching Verified 11/13/23 16:58 acetaminophen Allergy Itching Verified 11/13/23 16:58 [From Tylenol-Codeine #3] codeine Allergy Itching Verified 11/13/23 16:58 [From Tylenol-Codeine #3] hydromorphone HCl * Allergy Itching Verified 11/13/23 16:58 [From Dilaudid] oxycodone [Oxycodone] Allergy Unknown Verified 11/13/23 16:58 - Social History Does the pt smoke?: No Smoking Status: Never smoker Does the pt drink ETOH?: No Does the pt have substance abuse?: No - Immunizations Immunizations are current?: Yes - POLST Patient has POLST: No POLST Status: Full Code PD ED PE NORMAL - Vitals Vital signs reviewed: Yes - General General: Alert and oriented X 3, No acute distress - HEENT HEENT: Ears normal, Moist mucous membranes, Pharynx benign - Neck Neck: Supple, no meningeal sign - Cardiac Cardiac: RRR, Strong equal pulses - Respiratory Respiratory: No respiratory distress, Clear bilaterally - Abdomen Abdomen: Soft, Non tender, Non distended - Back Back: No CVA TTP, No spinal TTP - Derm Derm: Warm and dry - Extremities Extremities: No edema, No calf tenderness / cord - Neuro Neuro: Alert and oriented X 3 - Psych Psych: Normal mood, Normal affect Results - Vitals Vitals: Vital Signs - 24 hr 11/13/23 11/13/23 16:53 18:11 Temperature 36.0 C L Heart Rate 68 104 H Respiratory 20 16 Rate Blood Pressure 178/117 H 173/104 H O2 Saturation 99 100 Oxygen O2 Source Room air - EKG (time done) 1702 EKG releavant findings:: EKG personally interpreted by author of this note. Relevant findings are: Rate: Rate (enter#) (62) Rhythm: NSR [place]: Normal Intervals: Normal [place] QRS: Normal Ischemia: Normal ST segments - Labs Labs: Laboratory Tests 11/13/23 11/13/23 17:19 17:19 WBC 6.8 RBC 4.50 L Hgb 14.5 Hct 43.3 MCV 96.2 H MCH 32.2 H MCHC 33.5 RDW 11.9 L Plt Count 237 MPV 9.8 Neut # (Auto) 3.8 Lymph # (Auto) 2.2 [place] # (Auto) 0.6 Eos # (Auto) 0.2 Baso # (Auto) 0.1 Absolute Nucleated RBC 0.00 Nucleated RBC % 0.0 Sodium 139 Potassium 4.1 Chloride 103 Carbon Dioxide 30 Anion Gap 6.0 BUN 16 Creatinine 1.0 Estimated GFR (MDRD) 78 L Glucose 93 Calcium 9.3 Total Bilirubin 0.5 AST 18 ALT 23 Alkaline Phosphatase 78 Troponin I High Sens 5.2 Total Protein 7.5 Albumin 4.4 Globulin 3.1 Albumin/Globulin Ratio 1.4 Lipase 23 - Rads (name of study) cxr Relevant Findings:: Final report received, See rad report PD Medical Decision Making - ED course Complexity details: reviewed results, re-evaluated patient, considered differential (No ST elevation [place], no aortic dissection, no PE, no tension pneumothorax, no aortic aneurysm), d/w patient ED course: Patient with chest tightness since yesterday, constant. Feels like he has a runny nose and congestion as well. Does not change with exertion, deep breathing, eating or drinking. Does not feel like his prior heart issues. His high sensitive troponin is negative. No acute findings on EKG or chest x-ray. No other significant lab abnormalities. No hypoxia. No respiratory distress. Lungs are clear to auscultation bilaterally. Patient states he feels much better in the emergency department and is comfortable going home at this time. Patient counseled regarding signs and symptoms for which I believe and urgent re-evaluation would be necessary. Patient with good understanding of and agreement to plan This document was made in part using voice recognition software. While efforts are made to proofread this document, sound alike and grammatical errors may occur. Departure - Departure Disposition: Home, Self Care Clinical Impression: Chest pain Qualifiers: Chest pain type: unspecified Qualified Code(s): R07.9 - Chest pain, unspecified Condition: Good Instructions: ED Heart Disease Risk Factors Follow-Up: KINZA MONTILLA MD [Primary Care Provider] - Within 3 Days Comments: Your chest x-ray and laboratory testing did not show any acute abnormalities today. Your troponin is negative after greater than 24 hours of pain. Please follow-up with your doctor for further care. They may want to order a cardiac stress test for you. Please return if you worsen. Forms: PCP List Discharge Date/Time: 11/13/23 19:02
[2023-11-13 17:25] LABS: BASOPHILS # (AUTO) 0.1 10^3/uL (0.0-0.1); EOSINOPHILS # (AUTO) 0.2 10^3/uL (0.0-0.7); EOSINOPHILS % (AUTO) 2.7 %; HCT - HEMATOCRIT 43.3 % (42.0-52.0); HGB - HEMOGLOBIN 14.5 g/dL (14.0-18.0); LYMPHOCYTES # (AUTO) 2.2 10^3/uL (1.5-3.5); LYMPHOCYTES % (AUTO) 31.7 %; MEAN CORPUSCULAR HEMOGLOBIN 32.2 pg (27.0-31.0); MEAN CORPUSCULAR HGB CONC 33.5 g/dL (32.0-36.0); MEAN CORPUSCULAR VOLUME 96.2 fL (80.0-94.0); MEAN PLATELET VOLUME 9.8 fL (7.4-11.4); MONOCYTES # (AUTO) 0.6 10^3/uL (0.0-1.0); MONOCYTES % (AUTO) 8.4 %; NEUTROPHILS # (AUTO) 3.8 10^3/uL (1.5-6.6); NEUTROPHILS % (AUTO) 56.1 %; PLT - PLATELET COUNT 237 10^3/uL (130-450); RED CELL DISTRIBUTION WIDTH 11.9 % (12.0-15.0); WHITE BLOOD COUNT 6.8 x10^3/uL (4.8-10.8)
--- NOTE | 2023-11-13 17:33 | XRAY Report ---
PROCEDURE: Chest 1V INDICATIONS: Chest Pain TECHNIQUE: One view of the chest was acquired. COMPARISON: CXR 02/06/2023, 05/09/2022. FINDINGS: Surgical changes and devices: None. Lungs and pleura: No pleural effusions or pneumothorax. Lungs are clear. Mediastinum: Mediastinal contours appear normal. Heart size is normal. Bones and chest wall: No suspicious bony lesions. Overlying soft tissues appear unremarkable. IMPRESSION: No acute cardiopulmonary process identified. Reviewed by: Perfecto Menezes MD on 11/13/2023 5:31 PM PST Approved by: Perfecto Menezes MD on 11/13/2023 5:31 PM PST Station ID: [id number]
[2023-11-13 17:42] LABS: ALBUMIN 4.4 g/dL (3.2-5.5); ALBUMIN/GLOBULIN RATIO 1.4 (1.0-2.2); BILIRUBIN,TOTAL 0.5 mg/dL (0.2-1.0); CALCIUM 9.3 mg/dL (8.5-10.3); POTASSIUM 4.1 mmol/L (3.5-4.5); TOTAL PROTEIN 7.5 g/dL (6.4-8.9)
[2023-11-13] MEDS ORDERED: MAG HYDROX/AL HYDROX/SIMETH 30 ML UDC PO STA (17:49)
[2023-11-13] MEDS ORDERED: IBUPROFEN 600 MG TABLET PO STA (17:49)
[2023-11-13 17:51] LABS: TROPONIN I HIGH SENSITIVITY 5.2 ng/L (2.3-19.7)
[2023-11-13 18:16] VITALS: BP 173/104; O2SAT 100
== END 2023-11-13 19:02 | disposition home or self-care (01) ==
LOC: EDUNIT# → ED 16:46
DX: R07.9 Chest pain, unspecified (principal); I10 Essential (primary) hypertension; E78.00 Pure hypercholesterolemia, unspecified; I25.10 Atherosclerotic heart disease of native coronary artery without angina pectoris; Z79.899 Other long term (current) drug therapy; Z79.82 Long term (current) use of aspirin; Z98.61 Coronary angioplasty status; Z91.040 Latex allergy status
CPT/HCPCS: 36415; 71045; 80053; 83690; 84484; 85025; 93005; 99283; 99284; A9270

== ENCOUNTER 2024-09-01 07:56 | Observation (INO) ==
[2024-09-01 08:17] LABS: BASOPHILS # (AUTO) 0.1 10^3/uL (0.0-0.1); EOSINOPHILS # (AUTO) 0.2 10^3/uL (0.0-0.7); EOSINOPHILS % (AUTO) 3.3 %; HCT - HEMATOCRIT 43.6 % (42.0-52.0); HGB - HEMOGLOBIN 15.1 g/dL (14.0-18.0); LYMPHOCYTES # (AUTO) 1.9 10^3/uL (1.5-3.5); LYMPHOCYTES % (AUTO) 27.4 %; MEAN CORPUSCULAR HEMOGLOBIN 32.9 pg (27.0-31.0); MEAN CORPUSCULAR HGB CONC 34.6 g/dL (32.0-36.0); MEAN PLATELET VOLUME 9.7 fL (7.4-11.4); MONOCYTES # (AUTO) 0.5 10^3/uL (0.0-1.0); MONOCYTES % (AUTO) 6.5 %; NEUTROPHILS # (AUTO) 4.2 10^3/uL (1.5-6.6); NEUTROPHILS % (AUTO) 61.7 %; PLT - PLATELET COUNT 245 10^3/uL (130-450); RED BLOOD COUNT 4.59 10^6/uL (4.70-6.10); RED CELL DISTRIBUTION WIDTH 11.8 % (12.0-15.0); WHITE BLOOD COUNT 6.9 x10^3/uL (4.8-10.8)
--- NOTE | 2024-09-01 08:27 | ED Physician Documentation ---
History of Present Illness Stated complaint Stated Complaint: CP, LIGHT HEADED Chief complaint Chief Complaint: Cardiac Additonal information Additional information: 53yo M w/h/o CAD, stents in 2018, HTN, HLD, BRANODN, GERD presents with chest karson history clarified from triage notes. Patient states in the last 2 weeks, he has had intermittent substernal chest pressure, not radiating with mild shortness of breath and lightheadednessn that resolves with rest. He is not sure if it is worse with exertion. It is not affected by eating. It is not pleuritic. Sometimes when he uses his right arm to lift himself out of bed, it causes some pain, but unclear furcation this is minimal, transient and different than what he is describing above. 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 He is not sure the last cardiac testing yet, but his last cath was in 2018. He takes baby aspirin daily, including this morning. He denies focal numbness, weakness, back or flank or abdominal pain, leg swelling or leg pain, palpitations, syncope, or other concerns. Currently, at rest, he is overall comfortable. Family bedside corroborating. His Cardiology team is in [employer] system. Review of Systems ROS Constitutional: no fever, no chills Eyes: no visual disturbance, no discharge Ears, Nose, Mouth, Throat: no rhinorrhea, no sore throat Cardiovascular: +chest pain, no palpitations Respiratory: no cough, +shortness of breath Gastrointestinal: no abdominal pain, no vomiting, no diarrhea Genitourinary: no dysuria, no hematuria Musculoskeletal: no back pain, no neck stiffness Skin: no rash, no wound Neurological: no focal weakness, no focal numbness Meds/Allgy Home Medications Ambulatory Orders Medication Instructions Recorded Confirmed sildenafil 25 mg tablet (Viagra) 100 mg PO DAILY PRN NOT PROVIDED 09/11/14 09/01/24 tamsulosin 0.4 mg capsule 0.4 mg PO QPM 09/11/14 09/01/24 trazodone 100 mg tablet 50 mg PO QPM PRN Insomnia 09/11/14 09/01/24 acetaminophen 325 mg tablet 650 mg PO BID PRN BACK AND NECK 05/20/19 09/01/24 PAIN cholecalciferol (vitamin D3) 50 2,000 units PO DAILY 05/20/19 09/01/24 mcg (2,000 unit) capsule (Vitamin D3) aspirin 81 mg tablet,delayed 81 mg PO DAILY 05/26/19 09/01/24 release atorvastatin 80 mg tablet 80 mg PO QPM 05/26/19 09/01/24 metoprolol succinate 25 mg 25 mg PO DAILY 05/26/19 09/01/24 tablet,extended release 24 hr nitroglycerin 0.4 mg sublingual 0.4 mg sublingual Q5MIN PRN Chest 02/06/23 09/01/24 tablet Pain #25 tabs hydrochlorothiazide 12.5 mg tablet 12.5 mg PO DAILY 09/01/24 09/01/24 loratadine 10 mg tablet 10 mg PO Q12H PRN allergy symptoms 09/01/24 09/01/24 meloxicam 15 mg tablet 15 mg PO DAILY 09/01/24 09/01/24 pseudoephedrine HCl 120 mg 120 mg PO Q12H PRN nasal congestion 09/01/24 09/01/24 tablet,extended release Allergies Allergies Allergy/AdvReac Type Severity Reaction Status Date / Time latex Allergy Intermediate Itching Verified 09/01/24 08:06 codeine (From Allergy Itching Verified 09/01/24 08:06 Tylenol-Codeine #3) hydromorphone HCl * (From Allergy Itching Verified 09/01/24 08:06 Dilaudid) oxycodone (Oxycodone) Allergy Unknown Verified 09/01/24 08:06 [facility] Medical History Medical History (Updated 09/01/24 @ 10:22 by Ant Mcnamara MD) Hx of gastroesophageal reflux (GERD) CAD (coronary artery disease) HLD (hyperlipidemia) HTN (hypertension) Surgical History Surgical History (Updated 09/01/24 @ 08:08 by Boris Sandra RN) Hx of heart artery stent Hx of coronary angioplasty Social History Social History (Updated 09/01/24 @ 08:08 by Boris Sandra RN) Smoking Status: Former smoker If you are a former smoker, when did you quit? (Date/Year): 2006 Number of Years Smoked: 3 How many cigarettes a day do you smoke? (20 cigarettes=1 Pk): 1 Do you dip or chew tobacco?: No Do you vape?: No Patient requests smoking cessation consult: No Initiate information on smoking cessation: No Living arrangement: At home Living Condition: With spouse/s.o. and With family Relationship: Do you feel safe in your home environment?: Yes Suffered physical, verbal, emotional, or financial abuse?: No History of Abuse: No Frequency: Occasional Substance Use: denies use Are you sexually active?: Yes POLST Patient has POLST: No POLST Status: Full Code Exam Exam Const: no acute distress, non toxic appearing; calm, conversant, pleasant Eyes: PERRLA, EOMI ENT: mucous membranes moist Neck: supple, non-tender Resp: no respiratory distress, clear to auscultation bilaterally Card: regular rate and rhythm, no murmurs Abd: non tender diffusely, no rigidity or rebound or guarding Back: no T or L spine tenderness, no CVA tenderness bilaterally Extrem: no deformities, no swelling bilateral lower extremities, 2+ distal pulses all extremities Neuro: ANOx4, underwear welter grossly intact, grossly intact sensation and strength all extremities Skin: no rash, warm and dry Results Vitals Vitals: Vital Signs - 24 hr 09/01/24 08:06 09/01/24 08:42 09/01/24 09:12 Temperature 36.1 C L Temperature Source Temporal Artery Scan Pulse Rate 76 82 73 Respiratory Rate 18 16 14 Blood Pressure 120/80 113/84 116/69 O2 Saturation 99 96 94 O2 Source Room air Room air Room air Pain Intensity 5 5 0 09/01/24 09:42 09/01/24 10:00 Temperature Temperature Source Pulse Rate 67 71 Respiratory Rate 15 14 Blood Pressure 102/74 100/71 O2 Saturation 96 97 O2 Source Room air Room air Pain Intensity 0 0 Oxygen O2 Source Room air Labs Labs: Laboratory Tests 09/01/24 09/01/24 08:08 10:22 WBC 6.9 RBC 4.59 L Hgb 15.1 Hct 43.6 MCV 95.0 H MCH 32.9 H MCHC 34.6 RDW 11.8 L Plt Count 245 MPV 9.7 Neut # (Auto) 4.2 Lymph # (Auto) 1.9 Bland # (Auto) 0.5 Eos # (Auto) 0.2 Baso # (Auto) 0.1 Absolute Nucleated RBC 0.00 Nucleated RBC % 0.0 Sodium 138 Potassium 3.4 L Chloride 100 L Carbon Dioxide 30 Anion Gap 8.0 BUN 20 Creatinine 1.2 Estimated GFR (MDRD) 63 L Glucose 175 H Calcium 8.9 Total Bilirubin 0.7 AST 16 ALT 23 Alkaline Phosphatase 59 Troponin I High Sens 3.7 3.2 Total Protein 7.2 Albumin 4.4 Globulin 2.8 Albumin/Globulin Ratio 1.6 PD Medical Decision Making ED course ED course: This patient presents with intermittent chest pain and shortness of breath for the last 2 weeks, currently comfortable and neurovascular intact, with a broad differential I have considered including but not limited to ACS, gastritis, PUD, intravascular volume depletion, pneumonia, viral syndrome, costochondritis, among others. This is currently not clinically consistent with pulmonary embolism or aortic dissection. A musculoskeletal cause is also possible, with patient initially describing pain with using his right arm, however he does appear to have additional pain at other times beyond this. I am giving remainder of full aspirin, fluid bolus, obtaining EKG, troponin, CBC, CMP, chest x-ray and will closely reassess. EKG normal sinus rhythm without acute ischemia or immediately concerning interval prolongation. Note morphology is overall similar to November 13, 2023 EKG. Labs: CBC with no leukocytosis, macrocytosis without anemia, no thrombocytopenia. Chemistry with borderline hypokalemia, hyperglycemia, creatinine slightly increased from October 2023, no LFT elevation. Troponin reassuring though patient having intermittent chest pain no here so will trend. I have also requested [facility] Cardiology consult. XR: I agree with CXR read by radiology on my review "FINDINGS: Surgical changes and devices: None. Lungs and pleura: No pleural effusions or pneumothorax. Lungs are clear. Mediastinum: Mediastinal contours appear normal. Heart size is normal. Bones and chest wall: No suspicious bony lesions. Overlying soft tissues appear unremarkable. IMPRESSION: No acute cardiopulmonary process. Reviewed by: Kory Powell MD on 09/01/2024 9:54 AM PST" At this juncture, while troponin and EKG are reassuring, I remain concerned for potential ACS. Patient stable here. I spoke with Dr. Guzman who reviewed case with me and kindly accepts at 1021. Repeat EKG currently with NSR, no acute ischemia or immediately concerning interval prolongation. Repeat troponin reassuring. Patient admitted in stable condition. Discharge Plan Discharge Patient Disposition: [facility] DC/Xfer Condition: Stable Clinical Impression: Chest pain
[2024-09-01 08:34] LABS: ALBUMIN 4.4 g/dL (3.2-5.5); ALBUMIN/GLOBULIN RATIO 1.6 (1.0-2.2); BILIRUBIN,TOTAL 0.7 mg/dL (0.2-1.0); CALCIUM 8.9 mg/dL (8.5-10.3); CREATININE 1.2 mg/dL (0.6-1.3); POTASSIUM 3.4 mmol/L (3.5-4.5); TOTAL PROTEIN 7.2 g/dL (6.4-8.9)
[2024-09-01] MEDS: SODIUM CHLORIDE 0.9% 500 ML IV STA (08:46)
[2024-09-01] MEDS: ASPIRIN 325 MG TABLET PO STA (08:47)
[2024-09-01] MEDS: ASPIRIN CHEW 81 MG TABLET PO STA (08:47)
--- NOTE | 2024-09-01 09:55 | XRAY Report ---
PROCEDURE: XR Chest 1V INDICATIONS: CP TECHNIQUE: One view of the chest was acquired. COMPARISON: 11/13/23. FINDINGS: Surgical changes and devices: None. Lungs and pleura: No pleural effusions or pneumothorax. Lungs are clear. Mediastinum: Mediastinal contours appear normal. Heart size is normal. Bones and chest wall: No suspicious bony lesions. Overlying soft tissues appear unremarkable. IMPRESSION: No acute cardiopulmonary process. Reviewed by: Kory Powell MD on 09/01/2024 9:54 AM [facility] Approved by: Kory Powell MD on 09/01/2024 9:54 AM [facility] Station ID: [id number]
[2024-09-01] MEDS ORDERED: oxyCODONE 5 MG TABLET PO PRN (11:39)
[2024-09-01] MEDS ORDERED: ONDANSETRON 4 MG/2 ML VIAL IVP PRN (11:39)
[2024-09-01] MEDS ORDERED: traZODone 50 MG TABLET PO PRN (11:39)
[2024-09-01] MEDS ORDERED: ACETAMINOPHEN 325 MG TABLET PO PRN (11:39)
[2024-09-01] MEDS ORDERED: ONDANSETRON ODT 4 MG TABLET TL PRN (11:39)
[2024-09-01] MEDS ORDERED: NITROGLYCERIN SL 0.4 MG TABLET SL PRN ×2 (11:39)
[2024-09-01] MEDS ORDERED: SODIUM CHLORIDE FLUSH 0.9% 10 ML SYRINGE IVP PRN (11:39)
[2024-09-01] MEDS ORDERED: LORATADINE 10 MG TABLET PO PRN (11:39)
[2024-09-01] MEDS: hydroCHLOROthiazide 12.5 MG CAPSULE PO SCH (13:11)
[2024-09-01] MEDS: METOPROLOL SUCCINATE 25 MG TABLET PO SCH (13:11)
--- NOTE | 2024-09-01 15:58 | PHARMACY PROGRESS NOTE ---
Best Possible Medication History Admit Date and Time: 09/01/24 1027 Home Medications Medication Instructions Recorded Confirmed Type sildenafil 25 mg tablet (Viagra) 100 mg PO DAILY PRN NOT PROVIDED 09/11/14 09/01/24 History tamsulosin 0.4 mg capsule 0.4 mg PO QPM 09/11/14 09/01/24 History acetaminophen 325 mg tablet 650 mg PO BID PRN BACK AND NECK 05/20/19 09/01/24 History PAIN aspirin 81 mg tablet,delayed 81 mg PO DAILY 05/26/19 09/01/24 History release metoprolol succinate 25 mg 25 mg PO DAILY 05/26/19 09/01/24 History tablet,extended release 24 hr nitroglycerin 0.4 mg sublingual 0.4 mg sublingual Q5MIN PRN Chest 02/06/23 09/01/24 Rx tablet Pain #25 tabs atorvastatin 40 mg tablet 40 mg PO QPM 09/01/24 09/01/24 History cholecalciferol (vitamin D3) 25 1,000 unit PO DAILY 09/01/24 09/01/24 History mcg (1,000 unit) capsule coenzyme Q10 10 mg capsule (Co 10 mg PO DAILY 09/01/24 09/01/24 History Q-10) hydrochlorothiazide 12.5 mg tablet 12.5 mg PO DAILY 09/01/24 09/01/24 History loratadine 10 mg tablet 10 mg PO Q12H PRN allergy symptoms 09/01/24 09/01/24 History meloxicam 15 mg tablet 15 mg PO DAILY 09/01/24 09/01/24 History pseudoephedrine HCl 120 mg 120 mg PO Q12H PRN nasal congestion 09/01/24 09/01/24 History tablet,extended release trazodone 50 mg tablet 50 mg PO QPM PRN insomnia 09/01/24 09/01/24 History vitamin A-vitamin C-vit E-min 1 tab PO DAILY 09/01/24 09/01/24 History tablet (Vision tablet) Processed by: Pharmacy Medications reviewed in ED?: Yes Medication History completed: Yes Patient Interview: Pt interview ONLY source [facility] Statement: As the person ultimately responsible for medication therapy, providers are able to order a medication from an existing home medication list in [facility] via the "Reconcile Routine" prior to Confirmation of that medication by technical support associate. Such practice is discouraged except when the physician, in their clinical judgment, deems that a medical need exists for a medication without regard to previous use.
--- NOTE | 2024-09-01 16:16 | HISTORY & PHYSICAL EXAMINATION ---
Chief Complaint <Jaime Holland - Last Filed: 09/01/24 17:14> Chief Complaint Chief Complaint: Chest pain with shortness of breath History of Present Illness <Jaime Holland - Last Filed: 09/01/24 17:14> Admitted From Admitted From:: ER History Obtained From Records Reviewed: Expanse History obtained from: Patient/Expanse Exam Limitations: none History of Present Illness HPI Comment/Other: Patient is a 53 year old male complaining of chest pain and shortness of breath being admitted from the ER. Patient has CVD risk factors to include hypertension, hyperlipidemia, and prediabetes. Patient was brought to the ER via private auto, stating over the last week he has been experiencing intermittent palpitations, lightheadedness and minor shortness of breath. Yesterday (08/31), patient states he began feeling generalized chest pressure and achyness upon waking up when exerting himself by pushing himself out of bed. Patient acknowledged no relief of this sensation with rest. Pain has been reported as intermittent, prompting the the transport to ER based out of concern due to previous cardiac history. Upon ER arrival, patient states pain is a 7/10, non radiating, provoked with exertion. Pain level has improved and is currently rated 2/10. Patient states he has also been experiencing blurred/greyed vision which he also experienced during his previous incident which resulted in an angioplasty. Patient also states he has been experiencing cold sweats. Patient denies any fever, recent sickness, nausea, or vomiting. Patient has significant cardiac history to include [place] with 3 stent placements and has been seeing a sulphate tester for care management. Patient acknowledges he has not seen his sulphate tester in approximately 2 years. Patient also notes he has had numerous ER visits and cardiac workups since that time with not significant findings noted. Patient has a history of heartburn and appears educated on its signs and symptoms, stating this feels nothing like that and more like it is related to his cardiac history. 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 Patient also notes during work meetings when everyone is standing, he is unable to do so and feels like he will pass out after about 20 minutes. Meds/Allgy <Jaime Holland - Last Filed: 09/01/24 17:14> Home Medications Ambulatory Orders Medication Instructions Recorded Confirmed sildenafil 25 mg tablet (Viagra) 100 mg PO DAILY PRN NOT PROVIDED 09/11/14 09/01/24 tamsulosin 0.4 mg capsule 0.4 mg PO QPM 09/11/14 09/01/24 acetaminophen 325 mg tablet 650 mg PO BID PRN BACK AND NECK 05/20/19 09/01/24 PAIN aspirin 81 mg tablet,delayed 81 mg PO DAILY 05/26/19 09/01/24 release metoprolol succinate 25 mg 25 mg PO DAILY 05/26/19 09/01/24 tablet,extended release 24 hr nitroglycerin 0.4 mg sublingual 0.4 mg sublingual Q5MIN PRN Chest 02/06/23 09/01/24 tablet Pain #25 tabs atorvastatin 40 mg tablet 40 mg PO QPM 09/01/24 09/01/24 cholecalciferol (vitamin D3) 25 1,000 unit PO DAILY 09/01/24 09/01/24 mcg (1,000 unit) capsule coenzyme Q10 10 mg capsule (Co 10 mg PO DAILY 09/01/24 09/01/24 Q-10) hydrochlorothiazide 12.5 mg tablet 12.5 mg PO DAILY 09/01/24 09/01/24 loratadine 10 mg tablet 10 mg PO Q12H PRN allergy symptoms 09/01/24 09/01/24 meloxicam 15 mg tablet 15 mg PO DAILY 09/01/24 09/01/24 pseudoephedrine HCl 120 mg 120 mg PO Q12H PRN nasal congestion 09/01/24 09/01/24 tablet,extended release trazodone 50 mg tablet 50 mg PO QPM PRN insomnia 09/01/24 09/01/24 vitamin A-vitamin C-vit E-min 1 tab PO DAILY 09/01/24 09/01/24 tablet (Vision tablet) Allergies Allergies Allergy/AdvReac Type Severity Reaction Status Date / Time latex Allergy Intermediate Itching Verified 09/01/24 08:06 codeine (From Allergy Itching Verified 09/01/24 08:06 Tylenol-Codeine #3) hydromorphone HCl * (From Allergy Itching Verified 09/01/24 08:06 Dilaudid) oxycodone (Oxycodone) Allergy Unknown Verified 09/01/24 08:06 PFSH <Jaime Holland - Last Filed: 09/01/24 17:14> Medical History Medical History Hx of gastroesophageal reflux (GERD) CAD (coronary artery disease) HLD (hyperlipidemia) HTN (hypertension) Surgical History Surgical History Hx of heart artery stent Hx of coronary angioplasty Family History Family History Father High blood pressure Mother Diabetes Grandfather Colon cancer Social History Social History Smoking Status: Former smoker If you are a former smoker, when did you quit? (Date/Year): 1994 Number of Years Smoked: 3 How many cigarettes a day do you smoke? (20 cigarettes=1 Pk): 1 Do you dip or chew tobacco?: No Do you vape?: No Patient requests smoking cessation consult: No Initiate information on smoking cessation: No Living arrangement: At home Living Condition: With spouse/s.o. and With family Relationship: Level: Independent Do you feel safe in your home environment?: Yes Suffered physical, verbal, emotional, or financial abuse?: No History of Abuse: No Frequency: Occasional Substance Use: denies use Are you sexually active?: Yes POLST Patient has POLST: No POLST Status: Full Code Review of Systems <Jaime Holland - Last Filed: 09/01/24 17:14> Status of ROS: See HPI; Negative unobtainable due to medical condition Constitutional Reports: Weakness, Diaphoresis and Night sweats; Denies: Fever or Changes in appetite or eating habits Eyes Reports: Blurry vision, Change in vision and Blind spots; Denies: Seeing flashes, Eye discomfort, Eye discharge or Dry eyes Ears, nose, mouth, and throat Reports: Neck pain Cardiovascular Reports: chest pain, palpitations, lightheadedness and shortness of breath with exertion; Denies: leg pain with exertion Respiratory Reports: Shortness of breath, Snoring, SOB at rest and SOB with exertion; Denies: Cough, Sputum production, Wheezing, Stridor, Pleuritic pain, Pain on inspiration or Coughing up blood Gastrointestinal Reports: Heartburn and Constipation; Denies: Abdominal pain, Abdominal distention, Nausea or Vomiting Musculoskeletal Reports: Back pain, Neck pain, Joint pain and Muscle pain Endocrine Denies: Excessive urination or Excessive thirst Allergic/Immunologic Denies: Wheezing <Jaime Holland - Last Filed: 09/01/24 17:14> Prior Level of Functionality: Patient states he is unable to stand for extended periods, approximately 20+ minutes without feeling like he is going to pass out. Exam <Jaime Holland - Last Filed: 09/01/24 17:14> Exam Patient is a 53 year old male lying in bed in no apparent distress. Earlier in the day, patient was seen sleeping peacefully. Constitutional normal general appearance, no apparent distress and average body habitus HENMT normocephalic, hearing grossly normal bilaterally, external ears normal and oral mucous membranes normal Eyes PERRL, EOMs intact bilaterally and conjunctivae normal Neck/C-Spine visual inspection normal, trachea midline and cervical full ROM noted Lymph no lymphadenopathy noted and no lymphedema noted Chest inspection of chest normal, palpation of chest normal, inspection of breast(s) abnormal and palpation of breast(s) abnormal Respiratory breath sounds equal bilaterally, normal respiratory effort, clear to auscultation bilaterally, no wheezes, no rales, no retractions and no use of accessory muscles Cardiovascular normal heart rate noted, regular rhythm noted, no gallop, no rub, no murmur, no JVD, no clicks, no additional abnormal heart sounds and no edema Gastrointestinal abdomen soft to palpation, nontender to palpation, nondistended, normoactive bowel sounds and no ascites Back/Pelvis spine normal to inspection Extremities normal to inspection, normal to palpation and full ROM Neurology fisher eel II-XII intact, no movement abnormality noted, speech normal and coordination normal Skin skin color normal Conclusion/Plan <Jaime Holland - Last Filed: 09/01/24 17:14> Problem List (1) Chest pain: Plan: No notable changes in patient's ECG were observed. Serial troponin has been measured and is all within normal limits, suggesting pain is not from an acute [place]. Vital signs have been monitored and remain stable. Qualifiers: Chest pain type: unspecified Qualified Code(s): R07.9 - Chest pain, unspecified Plan Continue monitoring patient overnight for troponin and other signs of cardiac insufficiency. Repeat ECG and blood work in the morning. If patient remains stable, he will be discharged with instructions to follow up with his sulphate tester to schedule a stress test. Lab Results Lab results reviewed: Yes 09/01/24 08:08 09/01/24 08:08 EKG Results EKG Interpreted Independently: Yes EKG Comparison: Unchanged from prior EKG <Rhianna Guzman MD - Last Filed: 09/01/24 18:46> Problem List (1) Chest pain: Core Measures <Jaime Holland - Last Filed: 09/01/24 17:14> DVT/VTE - Prophylaxis VTE/DVT Device ordered at admit?: No Not Ordered - Medical Reason: Not indicated VTE/DVT Prophylaxis med ordered at admit?: No Not Ordered - Medical Reason: Not indicated Stroke - Rehab Assessment Rehab services assessment to be ordered?: No AMI - Statin at Admit Aspirin Prescribed on Admit: No
[2024-09-01] MEDS: DOCUSATE SODIUM 250 MG CAPSULE PO SCH (16:24)
[2024-09-01] MEDS: SODIUM CHLORIDE FLUSH 0.9% 10 ML SYRINGE IVP SCH (16:25)
[2024-09-01] MEDS: TAMSULOSIN 0.4 MG CAPSULE PO SCH (20:29)
[2024-09-01] MEDS: ATORVASTATIN 40 MG TABLET PO SCH (20:29)
[2024-09-02 05:44] LABS: BASOPHILS # (AUTO) 0.1 10^3/uL (0.0-0.1); EOSINOPHILS # (AUTO) 0.2 10^3/uL (0.0-0.7); EOSINOPHILS % (AUTO) 3.6 %; HGB - HEMOGLOBIN 14.3 g/dL (14.0-18.0); LYMPHOCYTES % (AUTO) 32.6 %; MEAN CORPUSCULAR HEMOGLOBIN 32.9 pg (27.0-31.0); MEAN CORPUSCULAR HGB CONC 34.9 g/dL (32.0-36.0); MEAN CORPUSCULAR VOLUME 94.5 fL (80.0-94.0); MEAN PLATELET VOLUME 9.6 fL (7.4-11.4); MONOCYTES # (AUTO) 0.5 10^3/uL (0.0-1.0); MONOCYTES % (AUTO) 7.3 %; NEUTROPHILS # (AUTO) 3.4 10^3/uL (1.5-6.6); NEUTROPHILS % (AUTO) 55.2 %; PLT - PLATELET COUNT 223 10^3/uL (130-450); RED BLOOD COUNT 4.34 10^6/uL (4.70-6.10); RED CELL DISTRIBUTION WIDTH 11.7 % (12.0-15.0); WHITE BLOOD COUNT 6.2 x10^3/uL (4.8-10.8)
[2024-09-02 06:02] LABS: BUN - BLOOD UREA NITROGEN 14 mg/dL (6-20); CALCIUM 8.6 mg/dL (8.5-10.3); CARBON DIOXIDE - CO2 28 mmol/L (21-32); CHLORIDE 103 mmol/L (101-111); CHOL/HDL RATIO 4.4 (<5.0); CHOLESTEROL 168 mg/dL; CREATININE 0.8 mg/dL (0.6-1.3); GFR - MDRD 100 (>89); GLUCOSE 122 mg/dL (74-104); HDL CHOLESTEROL 38 mg/dL; LDL CHOLESTEROL,CALCULATED 81 mg/dL; LDL/HDL RATIO 2.1 (<3.6); POTASSIUM 3.4 mmol/L (3.5-4.5); SODIUM 137 mmol/L (135-145); TRIGLYCERIDES 246 mg/dL; VLDL CHOLESTEROL 49 mg/dL
[2024-09-02 08:35] VITALS: O2SAT 92
[2024-09-02] MEDS: CHOLECALCIFEROL 25 MCG TABLET PO SCH (08:40)
[2024-09-02] MEDS: ASPIRIN CHEW 81 MG TABLET PO SCH (08:40)
--- NOTE | 2024-09-02 11:52 | Discharge Summary ---
"Discharge Summary Admit Date: 09/01/24 Discharge Date: 09/02/24 Discharging Provider: Rhianna Guzman MD Primary Care Provider: Jonny CURRIE [facility] Emergency Code Status: Attempt Resuscitation DIAGNOSES Discharge Diagnoses with Status of Each Condition: 1. Chest pain, resolved 2. History of coronary artery disease 3. History of coronary artery stenting HPI History of Present Illness: Patient is a 53 year old male complaining of chest pain and shortness of breath being admitted from the ER. Patient has CVD risk factors to include hypertension, hyperlipidemia, and prediabetes. Patient was brought to the ER via private auto, stating over the last week he has been experiencing intermittent palpitations, lightheadedness and minor shortness of breath. Yesterday (08/31), patient states he began feeling generalized chest pressure and achyness upon waking up when exerting himself by pushing himself out of bed. Patient acknowledged no relief of this sensation with rest. Pain has been reported as intermittent, prompting the the transport to ER based out of concern due to previous cardiac history. Upon ER arrival, patient states pain is a 7/10, non radiating, provoked with exertion. Pain level has improved and is currently rated 2/10. Patient states he has also been experiencing blurred/greyed vision which he also experienced during his previous incident which resulted in an angioplasty. Patient also states he has been experiencing cold sweats. Patient denies any fever, recent sickness, nausea, or vomiting. Patient has significant cardiac history to include CO with 3 stent placements and has been seeing a road machine runner for care management. Patient acknowledges he has not seen his road machine runner in approximately 2 years. Patient also notes he has had numerous ER visits and cardiac workups since that time with not significant findings noted. Patient has a history of heartburn and appears educated on its signs and symptoms, stating this feels nothing like that and more like it is related to his cardiac history. 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 Patient also notes during work meetings when everyone is standing, he is unable to do so and feels like he will pass out after about 20 minutes. CONSULTS | PROCEDURES Procedures: Chest x-ray without any acute cardiopulmonary process HOSPITAL COURSE Hospital Course: Patient was placed in observation status for rule out CO. Serial troponins were done and negative. Repeat EKG was done and negative. Chest pain had no further recurrence during his stay. He is discharged in stable condition to follow-up with Dr. Mccarthy or Dr. Mccarthy's nurse practitioner for a stress test. Also like him to see his primary care provider who is one of the new providers at the family practice clinic in [facility]. ALLERGIES Allergies Allergy/AdvReac Type Severity Reaction Status Date / Time latex Allergy Intermediate Itching Verified 09/01/24 08:06 codeine (From Allergy Itching Verified 09/01/24 08:06 Tylenol-Codeine #3) hydromorphone HCl * (From Allergy Itching Verified 09/01/24 08:06 Dilaudid) oxycodone (Oxycodone) Allergy Unknown Verified 09/01/24 08:06 MEDICATIONS Ambulatory Orders Medication Instructions Recorded Confirmed sildenafil 25 mg tablet (Viagra) 100 mg PO DAILY PRN NOT PROVIDED 09/11/14 09/01/24 tamsulosin 0.4 mg capsule 0.4 mg PO QPM 09/11/14 09/01/24 acetaminophen 325 mg tablet 650 mg PO BID PRN BACK AND NECK 05/20/19 09/01/24 PAIN aspirin 81 mg tablet,delayed 81 mg PO DAILY 05/26/19 09/01/24 release metoprolol succinate 25 mg 25 mg PO DAILY 05/26/19 09/01/24 tablet,extended release 24 hr nitroglycerin 0.4 mg sublingual 0.4 mg sublingual Q5MIN PRN Chest 02/06/23 09/01/24 tablet Pain #25 tabs atorvastatin 40 mg tablet 40 mg PO QPM 09/01/24 09/01/24 cholecalciferol (vitamin D3) 25 1,000 unit PO DAILY 09/01/24 09/01/24 mcg (1,000 unit) capsule coenzyme Q10 10 mg capsule (Co 10 mg PO DAILY 09/01/24 09/01/24 Q-10) hydrochlorothiazide 12.5 mg tablet 12.5 mg PO DAILY 09/01/24 09/01/24 loratadine 10 mg tablet 10 mg PO Q12H PRN allergy symptoms 09/01/24 09/01/24 meloxicam 15 mg tablet 15 mg PO DAILY 09/01/24 09/01/24 pseudoephedrine HCl 120 mg 120 mg PO Q12H PRN nasal congestion 09/01/24 09/01/24 tablet,extended release trazodone 50 mg tablet 50 mg PO QPM PRN insomnia 09/01/24 09/01/24 vitamin A-vitamin C-vit E-min 1 tab PO DAILY 09/01/24 09/01/24 tablet (Vision tablet) PHYSICAL EXAM AT DISCHARGE General Appearance: positive No acute distress, Alert and Other (looks younger than stated age, cheerful, walking in room, just ate breakfast and at bedside) Eyes Bilateral: positive PERRL ENT: positive Pharynx nml and No signs of dehydration Neck: positive No JVD; negative Stiff neck Respiratory: positive No respiratory distress and Breath sounds nml Cardiovascular: positive Regular rate & rhythm; negative Systolic murmur or Diastolic murmur Abdomen: positive Non-tender, No organomegaly and Nml bowel sounds Neurologic/Psychiatric: positive Oriented x3, CN's nml (2-12) and Motor nml LABS 09/02/24 05:34 09/02/24 05:34 TIME SPENT Time Spent in Discharge (Minutes): 30 Discharge Plan Discharge Patient Disposition: 01 Home, Self Care Condition: Stable Medically Cleared Date:: 09/02/24 Prescriptions: Continued sildenafil [Viagra] 25 MG tablet 100 mg PO DAILY PRN (Reason: NOT PROVIDED) tamsulosin 0.4 MG capsule 0.4 mg PO QPM acetaminophen 325 MG tablet 650 mg PO BID PRN (Reason: BACK AND NECK PAIN) aspirin 81 MG tablet,delayed release (DR/EC) 81 mg PO DAILY metoprolol succinate 25 MG tablet extended release 24 hr 25 mg PO DAILY nitroglycerin 0.4 MG tablet, sublingual 0.4 mg sublingual Q5MIN PRN (Reason: Chest Pain) Qty: 25 0RF Rx Instructions: Dissolve one tablet under tongue. May repeat every 5 minutes x3 to relieve chest pain. pseudoephedrine HCl 120 mg tablet extended release 120 mg PO Q12H PRN (Reason: nasal congestion) hydrochlorothiazide 12.5 mg tablet 12.5 mg PO DAILY loratadine 10 mg tablet 10 mg PO Q12H PRN (Reason: allergy symptoms) meloxicam 15 mg tablet 15 mg PO DAILY atorvastatin 40 mg tablet 40 mg PO QPM trazodone 50 mg tablet 50 mg PO QPM PRN (Reason: insomnia) coenzyme Q10 [Co Q-10] 10 mg capsule 10 mg PO DAILY Vision Tablet 1 tab PO DAILY cholecalciferol (vitamin D3) 25 mcg (1,000 unit) capsule 1,000 unit PO DAILY Diet: Cardiac Health Concerns: You have a history of heart disease and had stenting placed in your arteries in 2018 by [facility], Dr. Mccarthy. Since that time you have had intermittent chest pain and you have been in the emergency room several times. Each time, except for once, you were able to be sent home. You have now been again placed in observation for chest pain and your EKG has been stable. And the blood test that we do to make sure not having a heart attack are also negative. Now stable to go home. Assessment: Patient is alert, oriented to person, place, time. Occasionally demonstrates poor memory and that he cannot remember who his road machine runner is or who his primary care provider is. But he is seen by would be at the [facility]. Plan of Treatment: 1. Please see Dr. Mccarthy or his nurse practitioner, Estrella Pulido, in the next 1 to 2 weeks. You should be seen for a stress test. 2. There is been no change in your medications. He will go home on the same aspirin, atorvastatin, and metoprolol that you have taken before. I will not be changing that. Print Language: Jamaican Patient Instructions: Coronary Artery Spasm, CABG Control Risk Factor, Heart Risk Follow-up Care: HENRRY DAVIES DO [Physician No Access] - Ruben Mccarthy MD [Physician No Access] -"
== END 2024-09-02 12:11 | disposition home or self-care (01) ==
LOC: MS2 07:56 → ED 07:56 → MS2 11:32
PROVIDERS: ADMIT Specialist; ATTEND Specialist
DX: E78.5 Hyperlipidemia, unspecified; R73.03 Prediabetes; I10 Essential (primary) hypertension; R07.89 Other chest pain; I25.2 Old myocardial infarction; Z95.5 Presence of coronary angioplasty implant and graft; Z79.82 Long term (current) use of aspirin; I25.10 Atherosclerotic heart disease of native coronary artery without angina pectoris; Z87.891 Personal history of nicotine dependence